=== PATIENT | female | born 1985 | race Hispanic/Latino ===

== ENCOUNTER 2018-05-08 02:46 | Emergency (ER) | payer OTHER ==
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
== END 2018-05-08 04:39 | disposition home or self-care (01) ==
LOC: ER 02:46
PROC: 0HQ1XZZ Repair Face Skin, External Approach (ICD-10-PCS; principal; 2018-05-08)
DX: S01.412A Laceration without foreign body of left cheek and temporomandibular area, initial encounter (principal); F17.210 Nicotine dependence, cigarettes, uncomplicated; W25.XXXA Contact with sharp glass, initial encounter; Y93.89 Activity, other specified; Y92.89 Other specified places as the place of occurrence of the external cause; Y99.8 Other external cause status
CPT/HCPCS: 99283

== ENCOUNTER 2019-02-07 06:26 | Emergency (ER) | payer SELFPAY ==
[2019-02-07 06:56] LABS: Absolute Monocytes 0.7 K/uL (0.1-1.3); Absolute Neutrophil 4.9 K/uL (1.8-8.0); Basophils % 0.4 % (0-1.3); Eosinophils % 1.1 % (0-4.4); Hematocrit 44.9 % (36.0-45.0); Lymphocytes % 26.4 % (15.3-44.8); MPV 8.2 fL (7.6-11.3); Monocytes % 8.5 % (3.3-12.3); RBC Red Blood Cell Count 4.73 M/uL (3.86-4.86)
[2019-02-07] MEDS ORDERED: MORPHINE 4 MG/ML SYR ONE (06:56)
[2019-02-07] MEDS ORDERED: ONDANSETRON 4 MG/2 ML VIAL ONE (06:56)
[2019-02-07 07:01] LABS: Protime INR 0.93
[2019-02-07 07:20] LABS: ALT/SGPT 19 U/L (12-78); AST/SGOT 13 U/L (15-37); Albumin 3.9 g/dL (3.4-5.0); Alkaline Phosphatase 77 U/L (45-117); BUN Blood Urea Nitrogen 10 mg/dL (7-18); Bicarbonate 27 mmol/L (21-32); Bilirubin Direct 0.1 mg/dL (0-0.2); Bilirubin Total 0.4 mg/dL (0.2-1.0); Glucose Level 100 mg/dL (74-106); Lipase 71 U/L (73-393); Magnesium 2.1 mg/dL (1.8-2.4); NT PRO-BNP 45 pg/mL (<125); Potassium 3.3 mmol/L (3.5-5.1); Protein, Total 8.2 g/dL (6.4-8.2); Sodium Level 141 mmol/L (136-145); Troponin (Emerg Dept Use Only) < 0.02 ng/mL (0.0-0.045)
[2019-02-07] MEDS ORDERED: MEPERIDINE HCL 25 MG/0.5 ML ONE (07:24)
--- NOTE | 2019-02-07 08:10 | EDPHYS ---
Physician Documentation [facility] Name: Erika Romero Age: 33 yrs Sex: Female : 1985 Arrival Date: 02/07/2019 Time: 06:30 Bed 5 Private MD: ED Physician Arthur Payne HPI: 02/07 07:05 This 33 yrs old Female presents to ER via Ambulatory with complaints of chest kb pain, SOB. 07:05 The patient or guardian reports chest pain that is located primarily in the anterior kb chest wall, right. The pain radiates to the right shoulder. Associated signs and symptoms: Pertinent positives: cough, nausea, shortness of breath, vomiting. The chest pain is described as a pressure. Duration: The patient or guardian reports a single episode. Modifying factors: The symptoms are alleviated by nothing. the symptoms are aggravated by nothing. Severity of pain: At its worst the pain was moderate in the emergency department the pain is unchanged. The patient has not experienced similar symptoms in the past. The patient has not recently seen a physician. Pt reports right sided chest pain and shortness of breath that started at 0100. Reports she has had a cough for 2 weeks as well. +nausea, vomited x2. 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 - Social history:: Smoking status: Patient uses tobacco products, 2 cigs a day, Patient uses alcohol, occasionally. - Ebola Screening: : Patient negative for fever greater than or equal to 101.5 degrees Fahrenheit, and additional compatible Ebola Virus Disease symptoms Patient denies exposure to infectious person Patient denies travel to an Ebola-affected area in the 21 days before illness onset. ROS: 07:04 Constitutional: Negative for fever, chills, and weight loss, ENT: Negative for injury, kb pain, and discharge, Neck: Negative for injury, pain, and swelling, Abdomen/GI: Negative for abdominal pain, nausea, vomiting, diarrhea, and constipation, Back: Negative for injury and pain, : Negative for injury, bleeding, discharge, and swelling, MS/Extremity: Negative for injury and deformity, Skin: Negative for injury, rash, and discoloration, Neuro: Negative for headache, weakness, numbness, tingling, and seizure. 07:04 Cardiovascular: Positive for chest pain, Negative for edema, orthopnea, palpitations, paroxysmal nocturnal dyspnea. 07:04 Respiratory: Positive for cough, shortness of breath, Negative for dyspnea on exertion, hemoptysis, orthopnea, pleurisy, sputum production, wheezing. Exam: 07:12 Constitutional: This is a well developed, well nourished patient who is awake, alert, kb and in no acute distress. Head/Face: Normocephalic, atraumatic. ENT: Nares patent. No nasal discharge, no septal abnormalities noted. Tympanic membranes are normal and external auditory canals are clear. Oropharynx with no redness, swelling, or masses, exudates, or evidence of obstruction, uvula midline. Mucous membranes moist. Neck: Trachea midline, no thyromegaly or masses palpated, and no cervical lymphadenopathy. Supple, full range of motion without nuchal rigidity, or vertebral point tenderness. No Meningismus. Chest/axilla: Normal chest wall appearance and motion. Nontender with no deformity. No lesions are appreciated. Cardiovascular: Regular rate and rhythm with a normal S1 and S2. No gallops, murmurs, or rubs. Normal PMI, no JVD. No pulse deficits. Respiratory: Lungs have equal breath sounds bilaterally, clear to auscultation and percussion. No rales, rhonchi or wheezes noted. No increased work of breathing, no retractions or nasal flaring. Skin: Warm, dry with normal turgor. Normal color with no rashes, no lesions, and no evidence of cellulitis. MS/ Extremity: Pulses equal, no cyanosis. Neurovascular intact. Full, normal range of motion. Neuro: Awake and alert, GCS 15, oriented to person, place, time, and situation. Cranial nerves II-XII grossly intact. Motor strength 5/5 in all extremities. Sensory grossly intact. Cerebellar exam normal. Normal gait. 07:12 Abdomen/GI: Inspection: abdomen appears normal, Bowel sounds: normal, Palpation: moderate abdominal tenderness, in the right upper quadrant. 09:00 ECG was reviewed by the Attending Physician. kb Vital Signs: 06:30 BP 146 / 87; Pulse 63; Resp 18; Temp 98.4(O); Pulse Ox 100% on R/A; Weight 68.04 kg fc (R); Height 4 ft. 11 in. (149.86 cm) (R); Pain 10/10; 07:39 BP 128 / 78; Pulse 59; Resp 16; Pulse Ox 98% on R/A; la1 08:10 BP 132 / 82; Pulse 79; Resp 18; Pulse Ox 100% ; sv 06:30 Body Mass Index 30.30 (68.04 kg, 149.86 cm) fc MDM: 06:35 Patient medically screened. kb 07:12 Data reviewed: vital signs, nurses notes. Data interpreted: Pulse oximetry: on room air kb is 100 %. Interpretation: normal. 08:05 Counseling: I had a detailed discussion with the patient and/or guardian regarding: the kb historical points, exam findings, and any diagnostic results supporting the discharge/admit diagnosis, lab results, radiology results, the need for outpatient follow up, a family practitioner, a general surgeon, to return to the emergency department if symptoms worsen or persist or if there are any questions or concerns that arise at home. 02/07 06:36 Order name: Basic Metabolic Panel; Complete Time: 07:23 kb 02/07 06:36 Order name: CBC with Diff; Complete Time: 07:03 kb 02/07 06:36 Order name: LFT's; Complete Time: 07:23 kb 02/07 06:36 Order name: Magnesium; Complete Time: 07:23 kb 02/07 06:36 Order name: NT PRO-BNP; Complete Time: 07:23 kb 02/07 06:36 Order name: PT-INR; Complete Time: 07:03 kb 02/07 06:36 Order name: Troponin (emerg Dept Use Only); Complete Time: 07:23 kb 02/07 06:36 Order name: XRAY Chest (1 view); Complete Time: 08:40 kb 02/07 06:36 Order name: D-Dimer; Complete Time: 07:03 kb 02/07 06:37 Order name: Lipase; Complete Time: 07:23 kb 02/07 06:40 Order name: US Abdomen Limited; Complete Time: 08:40 kb 02/07 08:28 Order name: Urine Dipstick--Ancillary (enter results); Complete Time: 08:58 hb 06 08:28 Order name: Urine --Ancillary (enter results); Complete Time: 08:58 hb 02/07 06:36 Order name: Cardiac monitoring; Complete Time: 06:45 kb 0406 06:36 Order name: EKG - Nurse/Tech; Complete Time: 06:46 kb 04 06:36 Order name: IV Saline Lock; Complete Time: 06:46 kb 04 06:36 Order name: Labs collected and sent; Complete Time: 06:46 kb 0406 06:36 Order name: O2 Per Protocol; Complete Time: 06:46 kb 04 06:36 Order name: O2 Sat Monitoring; Complete Time: 06:46 kb EC:00 Rate is 52 beats/min. Rhythm is regular. QRS Stanton is Normal. VT interval is normal at kb 120 msec. QRS interval is normal at 86 msec. QT interval is normal at 434 msec. Clinical impression: Sinus bradycardia. Interpreted by me. Reviewed by me. Administered Medications: 06:45 Drug: morphine 4 mg Route: IVP; Site: right antecubital; ea 07:03 Follow up: Response: No adverse reaction; Pain is decreased ea 06:50 Drug: Zofran 4 mg Route: IVP; Site: right antecubital; ea 07:03 Follow up: Response: No adverse reaction ea 07:17 Drug: Demerol 25 mg Route: IVP; Site: right antecubital; la1 08:10 Follow up: Response: No adverse reaction; No change in condition sv 08:10 Drug: Potassium Chloride 20 mEq Route: PO; sv 08:32 Follow up: Response: No adverse reaction sv 08:32 Drug: TORadol 30 mg Route: IVP; Site: right antecubital; sv 09:00 Follow up: Response: No adverse reaction; Pain is decreased la1 Disposition: 02/07/19 08:09 Discharged to Home. Impression: Cholelithiasis. - Condition is Stable. - Discharge Instructions: Cholelithiasis, [id number]. - Prescriptions for Bentyl 20 mg Oral Tablet - take 1 tablet by ORAL route every 6 hours As needed; 20 tablet. Zofran 4 mg Oral Tablet - take 1 tablet by ORAL route every 6 hours As needed; 20 tablet. Diclofenac Sodium 75 mg Oral Tablet, Delayed Release (E.C.) - take 1 tablet by ORAL route 2 times per day As needed; 30 tablet. - Medication Reconciliation Form, Thank You Letter, Antibiotic Education, Prescription Opioid Use form. - Work release form (02/07/19 09:04). eb - Follow up: Emergency Department; When: As needed; Reason: Worsening of condition. Follow up: Private Physician; When: 2 - 3 days; Reason: Recheck today's complaints, Continuance of care, Re-evaluation by your physician. Signatures: Dispatcher [employer]OK Daisy Godfrey, TRANSIT MANAGER-C TRANSIT MANAGER-Lauryn Nguyen, RN RN sv Latisha Eubanks RN RN Conrad Ferrer RN RN laSpring George RN Norma Larsen ea Corrections: (The following items were deleted from the chart) 09:03 08:09 02/07/2019 08:09 Discharged to Home. Impression: Cholelithiasis. Condition is la1 Stable. Discharge Instructions: Cholelithiasis, [id number]. Prescriptions for Bentyl 20 mg Oral Tablet - take 1 tablet by ORAL route every 6 hours As needed; 20 tablet, Zofran 4 mg Oral Tablet - take 1 tablet by ORAL route every 6 hours As needed; 20 tablet, Diclofenac Sodium 75 mg Oral Tablet, Delayed Release (E.C.) - take 1 tablet by ORAL route 2 times per day As needed; 30 tablet. and Forms are Medication Reconciliation Form, Thank You Letter, Antibiotic Education, Prescription Opioid Use. Follow up: Emergency Department; When: As needed; Reason: Worsening of condition. Follow up: Private Physician; When: 2 - 3 days; Reason: Recheck today's complaints, Continuance of care, Re-evaluation by your physician. kb
--- NOTE | 2019-02-07 08:10 | ER ---
Nurse's Notes [facility] Name: Erika Romero Age: 33 yrs Sex: Female : 1985 Arrival Date: 02/07/2019 Time: 06:30 Bed 5 Private MD: Diagnosis: Cholelithiasis Presentation: 02/07 06:30 Presenting complaint: Patient states: that she started to have pain under right breast fc at 0100 and has since spread to entire chest and right arm. Also having nausea, vomiting and shortness of breath. Transition of care: patient was not received from another setting of care. Onset of symptoms was February 07, 2019 at 01:00. Risk Assessment: Do you want to hurt yourself or someone else? Patient reports no desire to harm self or others. Initial Sepsis Screen: Does the patient meet any 2 criteria? No. Patient's initial sepsis screen is negative. Does the patient have a suspected source of infection? No. Patient's initial sepsis screen is negative. Care prior to arrival: Medication(s) given: TUMS at 0200. 06:30 Method Of Arrival: Ambulatory fc 06:30 Acuity: CESILIA 3 fc QUANTITATIVE ANALYST: 06:30 LMP N/A - control method fc Historical: - Allergies: 06:40 No Known Allergies; fc - Home Meds: 06:40 None [Active]; fc - PMHx: 06:40 None; fc - PSHx: 06:40 ; fc - Immunization history:: Last tetanus immunization: unknown, Flu vaccine is not up to date. - Social history:: Smoking status: Patient uses tobacco products, 2 cigs a day, Patient uses alcohol, occasionally. - Ebola Screening: : Patient negative for fever greater than or equal to 101.5 degrees Fahrenheit, and additional compatible Ebola Virus Disease symptoms Patient denies exposure to infectious person Patient denies travel to an Ebola-affected area in the 21 days before illness onset. Screenin:30 Abuse screen: Denies threats or abuse. Nutritional screening: No deficits noted. fc Tuberculosis screening: No symptoms or risk factors identified. Fall Risk None identified. Assessment: 06:45 General: Appears in no apparent distress. Behavior is calm, cooperative. Pain: la1 Complains of pain in epigastric area and right upper quadrant. Neuro: Level of Consciousness is awake, alert, obeys commands, Oriented to person, place, time, situation. Cardiovascular: Capillary refill < 3 seconds is brisk Patient's skin is warm and dry. Respiratory: Airway is patent Respiratory effort is even, unlabored, Respiratory pattern is regular, symmetrical, Breath sounds are clear bilaterally. GI: Abdomen is round non-distended, Bowel sounds present X 4 quads. Abd is soft X 4 quads Abdomen is tender to palpation in epigastric area and right upper quadrant. : No signs and/or symptoms were reported regarding the genitourinary system. 07:39 Reassessment: Patient appears in no apparent distress at this time. No changes from la1 previously documented assessment. Patient and/or family updated on plan of care and expected duration. Pain level reassessed. Patient is alert, oriented x 3, equal unlabored respirations, skin warm/dry/pink. 08:10 Reassessment: Patient appears in no apparent distress at this time. Patient and/or sv family updated on plan of care and expected duration. Pain level reassessed. Patient is alert, oriented x 3, equal unlabored respirations, skin warm/dry/pink. Vital Signs: 06:30 BP 146 / 87; Pulse 63; Resp 18; Temp 98.4(O); Pulse Ox 100% on R/A; Weight 68.04 kg fc (R); Height 4 ft. 11 in. (149.86 cm) (R); Pain 10/10; 07:39 BP 128 / 78; Pulse 59; Resp 16; Pulse Ox 98% on R/A; la1 08:10 BP 132 / 82; Pulse 79; Resp 18; Pulse Ox 100% ; sv 06:30 Body Mass Index 30.30 (68.04 kg, 149.86 cm) ED Course: 06:30 Patient arrived in ED. ea 06:30 Arm band placed on Patient placed in an exam room, on a stretcher. fc 06:30 Patient has correct armband on for positive identification. Placed in gown. Bed in low fc position. Call light in reach. laboratory monitor on. Pulse ox on. NIBP on. 06:30 No provider procedures requiring assistance completed. fc 06:35 [facility] kb 06:35 Arthur Payne MD is Attending Physician. kb 06:38 Triage completed. fc 06:45 Conrad Agarwal, RN is Primary Nurse. la1 06:45 Inserted saline lock: 20 gauge in left antecubital area, using aseptic technique. Blood la1 collected. 07:11 XRAY Chest (1 view) In Process Unspecified. EDMS 07:30 EKG done, by ED staff, reviewed by Daisy KELLOGG. dh3 07:47 Ultrasound completed. Patient tolerated well. sg3 08:03 Notified [employer]IN[employer] INSPECTOR/PA daisy. sg3 08:04 US Abdomen Limited In Process Unspecified. EDMS 08:59 IV discontinued, intact, bleeding controlled, No redness/swelling at site. Pressure la1 dressing applied. Administered Medications: 06:45 Drug: morphine 4 mg Route: IVP; Site: right antecubital; ea 07:03 Follow up: Response: No adverse reaction; Pain is decreased ea 06:50 Drug: Zofran 4 mg Route: IVP; Site: right antecubital; ea 07:03 Follow up: Response: No adverse reaction ea 07:17 Drug: Demerol 25 mg Route: IVP; Site: right antecubital; la1 08:10 Follow up: Response: No adverse reaction; No change in condition sv 08:10 Drug: Potassium Chloride 20 mEq Route: PO; sv 08:32 Follow up: Response: No adverse reaction sv 08:32 Drug: TORadol 30 mg Route: IVP; Site: right antecubital; sv 09:00 Follow up: Response: No adverse reaction; Pain is decreased la1 Outcome: 08:09 Discharge ordered by . kb 08:58 Discharged to home ambulatory. la1 08:58 Condition: stable 08:58 Discharge instructions given to patient, Instructed on discharge instructions, follow up and referral plans. medication usage, Demonstrated understanding of instructions, follow-up care, medications, Prescriptions given X 3. 09:03 Patient left the ED. la1 Signatures: Dispatcher [employer] EDMS Daisy Godfrey FNP-C FNP-Ckb Verde, Stephanie, RN RN sv Chretien, Felicia, RN RN fc Attema, Lee, RN RN la1 Cecilia Roach 3 Spring Aldridge RN RN ea Godinez, Sarah 3 Corrections: (The following items were deleted from the chart) 08:04 08:01 Ultrasound completed. Patient tolerated well. sg3 sg3
--- NOTE | 2019-02-07 08:12 | RAD REPORT ---
EXAM DESCRIPTION: US - Abdomen Exam Limited - 02/07/2019 8:03 am CLINICAL HISTORY: Abdominal pain COMPARISON: None. FINDINGS: Multiple mobile gallstones are identified up to 15 mm in size. At least 1 gallstone remain fixed near the neck of the gallbladder. There is no wall thickening or pericholecystic fluid. No common duct stone or biliary tree dilatation identified. IMPRESSION: Multi stone cholelithiasis. No gallbladder wall thickening or edema. No duct stone or biliary tree dilatation.
--- NOTE | 2019-02-07 08:15 | RAD REPORT ---
EXAM DESCRIPTION: RAD - Chest Single View - 02/07/2019 7:11 am CLINICAL HISTORY: Right-sided chest and breast pain, right arm pain, shortness of breath COMPARISON: None. TECHNIQUE: AP portable chest image was obtained 0707 hours . FINDINGS: Lungs are clear. Heart and vasculature are normal. No measurable pleural effusion and no p neumothorax. No acute bony abnormality seen. No acute aortic findings suspected. IMPRESSION: No acute cardiopulmonary process.
[2019-02-07] MEDS ORDERED: POTASSIUM CL SA 10 MEQ TAB PO ONE (08:21)
[2019-02-07] MEDS ORDERED: KETOROLAC 30 MG/ML INJ ONE (08:39)
[2019-02-07 08:58] LABS: Urine Blood NEGATIVE (NEG); Urine Glucose NEGATIVE (NEG); Urine Protein NEGATIVE (NEG); Urine pH 6.5 (5.0-7.0)
== END 2019-02-07 09:03 | disposition home or self-care (01) ==
LOC: ER 06:26
DX: K80.20 Calculus of gallbladder without cholecystitis without obstruction (principal); F17.210 Nicotine dependence, cigarettes, uncomplicated
CPT/HCPCS: 36415; 71045; 76705; 80048; 80076; 81003; 81025; 83690; 83735; 83880; 84484; 85025; 85379; 85610; 96374; 96375; 99284; J2175; J2405

== ENCOUNTER 2019-02-10 01:45 | Inpatient (IN) | payer SELFPAY ==
[2019-02-10 02:52] LABS: Absolute Lymphocytes (CBC) 2.7 K/uL (0.7-4.9); Absolute Monocytes 0.7 K/uL (0.1-1.3); Absolute Neutrophil 3.3 K/uL (1.8-8.0); Basophils % 0.6 % (0-1.3); Eosinophils % 1.6 % (0-4.4); Hematocrit 41.5 % (36.0-45.0); Lymphocytes % 38.9 % (15.3-44.8); MPV 8.2 fL (7.6-11.3); Monocytes % 10.1 % (3.3-12.3); RBC Red Blood Cell Count 4.34 M/uL (3.86-4.86)
[2019-02-10] MEDS ORDERED: FENTANYL CITR 100 MCG/2 ML ONE ×2 (03:03→12:13)
[2019-02-10 03:04] LABS: ALT/SGPT 16 U/L (12-78); AST/SGOT 10 U/L (15-37); Albumin 3.5 g/dL (3.4-5.0); Alkaline Phosphatase 73 U/L (45-117); BUN Blood Urea Nitrogen 10 mg/dL (7-18); Bicarbonate 27 mmol/L (21-32); Bilirubin Direct < 0.1 mg/dL (0-0.2); Bilirubin Total 0.2 mg/dL (0.2-1.0); Glucose Level 101 mg/dL (74-106); Lipase 73 U/L (73-393); Potassium 3.6 mmol/L (3.5-5.1); Protein, Total 7.2 g/dL (6.4-8.2); Sodium Level 141 mmol/L (136-145)
[2019-02-10] MEDS ORDERED: HYDROMORPHONE HCL 0.5 MG/0.5 ML INJ ONE (04:25)
[2019-02-10] MEDS ORDERED: ONDANSETRON 4 MG/2 ML VIAL ONE ×2 (04:35→13:40)
--- NOTE | 2019-02-10 04:36 | ER ---
Nurse's Notes [facility] Name: Erika Romero Age: 33 yrs Sex: Female : 1985 Arrival Date: 02/10/2019 Time: 01:46 Bed 28 Private MD: Diagnosis: Acute cholecystitis Presentation: 02/10 02:00 Presenting complaint: Patient states: epigastric pain stated at 2200. pt c/o N/V and ak1 burning pain. pt seen in ER last week but could not get medication filled at pharmacy until Saturday. pt stated she knows she has gallstones. Transition of care: patient was not received from another setting of care. Onset of symptoms was February 10, 2019. Risk Assessment: Do you want to hurt yourself or someone else? Patient reports no desire to harm self or others. Care prior to arrival: None. 02:00 Method Of Arrival: Ambulatory ak1 02:00 Acuity: CESILIA 3 ak1 Triage Assessment: 02:02 General: Appears in no apparent distress. uncomfortable, Behavior is cooperative. Pain: ak1 Complains of pain in epigastric area. EENT: No signs and/or symptoms were reported regarding the EENT system. Neuro: No deficits noted. Cardiovascular: No deficits noted. Respiratory: No deficits noted. GI: Parent/caregiver reports the patient having epigastric pain, nausea, vomiting. : No signs and/or symptoms were reported regarding the genitourinary system. Derm: No signs and/or symptoms reported regarding the dermatologic system. Musculoskeletal: No signs and/or symptoms reported regarding the musculoskeletal system. MANAGER PERSONNEL SELECTION: 01:[address] ak1 Historical: - Allergies: 02:02 No Known Allergies; ak1 - Home Meds: 02:02 None [Active]; ak1 - PMHx: 02:02 None; ak1 - PSHx: 02:02 ; ak1 - Immunization history:: Adult Immunizations unknown. - Social history:: Smoking status: Patient uses tobacco products, denies chronic smoking, but will smoke occasionally. - Ebola Screening: : No symptoms or risks identified at this time. Screenin:04 Abuse screen: Denies threats or abuse. Denies injuries from another. Nutritional ak1 screening: No deficits noted. Tuberculosis screening: No symptoms or risk factors identified. Fall Risk None identified. Assessment: 02:24 General: Appears uncomfortable, Behavior is calm, cooperative. Pain: Complains of pain ed1 in epigastric area Pain radiates to back Pain currently is 10 out of 10 on a pain scale. Quality of pain is described as sharp, Pain began 2-3 days ago. Is continuous. Neuro: Level of Consciousness is awake, alert, obeys commands, Oriented to person, place, time, situation. Cardiovascular: Denies chest pain, Heart tones S1 S2 present. Respiratory: Airway is patent Respiratory effort is even, unlabored, Respiratory pattern is regular, symmetrical, Breath sounds are clear bilaterally. GI: Abdomen is non-distended, Bowel sounds present X 4 quads. Abd is soft X 4 quads Abdomen is tender to palpation in epigastric area and right upper quadrant Reports nausea, Patient currently denies diarrhea, vomiting. : No signs and/or symptoms were reported regarding the genitourinary system. EENT: No signs and/or symptoms were reported regarding the EENT system. Derm: Skin is intact, is healthy with good turgor, Skin is dry, Skin is normal, Skin temperature is warm. Musculoskeletal: Circulation, motion, and sensation intact. Range of motion: intact in all extremities. 03:18 Reassessment: No changes from previously documented assessment. Patient and/or family ed1 updated on plan of care and expected duration. Pain level reassessed. Patient is alert, oriented x 3, equal unlabored respirations, skin warm/dry/pink. Patient states symptoms have not improved. 04:26 Reassessment: No changes from previously documented assessment. Patient and/or family ed1 updated on plan of care and expected duration. Pain level reassessed. Patient is alert, oriented x 3, equal unlabored respirations, skin warm/dry/pink. Patient states symptoms have not improved. Vital Signs: 01:59 BP 160 / 92; Pulse 66; Resp 20; Temp 98.2(O); Pulse Ox 99% on R/A; Weight 68.04 kg (R); ak1 Height 4 ft. 11 in. (149.86 cm) (R); Pain 10/10; 03:18 BP 132 / 76; Pulse 79; Resp 17; Pulse Ox 99% on R/A; Pain 10/10; ed1 04:26 BP 118 / 75; Pulse 70; Resp 18; Pulse Ox 99% on R/A; Pain 10/10; ed1 01:59 Body Mass Index 30.30 (68.04 kg, 149.86 cm) ak1 ED Course: 01:46 Patient arrived in ED. am2 01:53 Esperanza Jordan, RN is Primary Nurse. ed1 01:59 Arm band placed on Patient placed in an exam room, on a stretcher, on pulse oximetry, ak1 Patient notified of wait time. 02:00 Enrique Turner MD is Attending Physician. gs 02:02 Triage completed. ak1 02:04 Patient has correct armband on for positive identification. Placed in gown. Bed in low ak1 position. Call light in reach. Side rails up X 1. Pulse ox on. NIBP on. 02:24 Initial lab(s) drawn, by ED staff, sent to lab. Inserted saline lock: 20 gauge in left ed1 antecubital area, using aseptic technique. Blood collected. 04:32 Ezekiel Cao MD is Hospitalizing Provider. 06:57 Primary Nurse role handed off by Esperanza Jordan, FANI ed1 Administered Medications: 02:55 Drug: fentaNYL (PF) 50 mcg Route: IVP; Site: left antecubital; ed1 03:19 Follow up: Response: No adverse reaction; Pain is unchanged, physician notified ed1 04:17 Drug: Dilaudid 0.5 mg Route: IVP; Site: left antecubital; ed1 04:47 Follow up: Response: No adverse reaction; No change in condition; Pain is unchanged, ed1 physician notified 04:27 Drug: Zofran 4 mg Route: IVP; Site: left antecubital; ed1 04:48 Follow up: Response: No adverse reaction; Nausea is decreased ed1 04:47 Drug: NS 0.9% 1000 ml Route: IV; Rate: 125 ml/hr; Site: left antecubital; ed1 04:48 Follow up: IV Status: Infusion continued upon admission ed1 04:47 Drug: cefOXitin 1 grams Route: IVPB; Infused Over: 30 mins; Site: left antecubital; ed1 05:18 Follow up: Response: No adverse reaction; IV Status: Completed infusion; IV Intake: [id number] Intake: 05:18 IV: 10ml; Total: 10ml. ed1 Outcome: 04:36 Decision to Hospitalize by Provider. gs 12:13 Patient left the ED. aj1 Signatures: Prceious Redding RN RN aj1 Esperanza Jordan RN RN ed1 Rosio Sandoval RN RN ak1 Kelsi Perry am2 Enrique Turner MD MD gs
--- NOTE | 2019-02-10 04:36 | EDPHYS ---
Physician Documentation [facility] Name: Erika Romero Age: 33 yrs Sex: Female : 1985 Arrival Date: 02/10/2019 Time: 01:46 Bed 28 Private MD: ED Physician Enrique Turner HPI: 02/10 04:29 This 33 yrs old Female presents to ER via Ambulatory with complaints of Flank gs Pain - gallstones. 04:29 The patient presents with abdominal pain in the epigastric area, in the right upper gs quadrant. Onset: The symptoms/episode began/occurred 2 day(s) ago, and became worse and became persistent. The symptoms do not radiate. Associated signs and symptoms: Pertinent positives: nausea, vomiting, and diarrhea. The symptoms are described as sharp. Modifying factors: The symptoms are alleviated by nothing, the symptoms are aggravated by food. Severity of pain: At its worst the pain was severe in the emergency department the pain is unchanged. The patient has experienced similar episodes in the past, a few times. The patient has been recently seen at the [facility] Emergency Department, last week. QC SCIENTIST: 01:[address] ak1 Historical: - Allergies: 02:02 No Known Allergies; ak1 - Home Meds: 02:02 None [Active]; ak1 - PMHx: 02:02 None; ak1 - PSHx: 02:02 ; ak1 - Immunization history:: Adult Immunizations unknown. - Social history:: Smoking status: Patient uses tobacco products, denies chronic smoking, but will smoke occasionally. - Ebola Screening: : No symptoms or risks identified at this time. ROS: 04:29 All other systems are negative. gs Exam: 04:29 Head/Face: Normocephalic, atraumatic. Eyes: Pupils equal round and reactive to light, gs extra-ocular motions intact. Lids and lashes normal. Conjunctiva and sclera are non-icteric and not injected. Cornea within normal limits. Periorbital areas with no swelling, redness, or edema. ENT: Nares patent. No nasal discharge, no septal abnormalities noted. Tympanic membranes are normal and external auditory canals are clear. Oropharynx with no redness, swelling, or masses, exudates, or evidence of obstruction, uvula midline. Mucous membranes moist. Neck: Trachea midline, no thyromegaly or masses palpated, and no cervical lymphadenopathy. Supple, full range of motion without nuchal rigidity, or vertebral point tenderness. No Meningismus. Chest/axilla: Normal chest wall appearance and motion. Nontender with no deformity. No lesions are appreciated. Cardiovascular: Regular rate and rhythm with a normal S1 and S2. No gallops, murmurs, or rubs. Normal PMI, no JVD. No pulse deficits. Respiratory: Lungs have equal breath sounds bilaterally, clear to auscultation and percussion. No rales, rhonchi or wheezes noted. No increased work of breathing, no retractions or nasal flaring. Back: No spinal tenderness. No costovertebral tenderness. Full range of motion. Skin: Warm, dry with normal turgor. Normal color with no rashes, no lesions, and no evidence of cellulitis. MS/ Extremity: Pulses equal, no cyanosis. Neurovascular intact. Full, normal range of motion. Neuro: Awake and alert, GCS 15, oriented to person, place, time, and situation. Cranial nerves II-XII grossly intact. Motor strength 5/5 in all extremities. Sensory grossly intact. Cerebellar exam normal. Normal gait. 04:29 Constitutional: The patient appears alert, awake, uncomfortable. 04:29 Abdomen/GI: Palpation: moderate abdominal tenderness, in the epigastric area and right upper quadrant. Vital Signs: 01:59 BP 160 / 92; Pulse 66; Resp 20; Temp 98.2(O); Pulse Ox 99% on R/A; Weight 68.04 kg (R); ak1 Height 4 ft. 11 in. (149.86 cm) (R); Pain 10/10; 03:18 BP 132 / 76; Pulse 79; Resp 17; Pulse Ox 99% on R/A; Pain 10/10; ed1 04:26 BP 118 / 75; Pulse 70; Resp 18; Pulse Ox 99% on R/A; Pain 10/10; ed1 01:59 Body Mass Index 30.30 (68.04 kg, 149.86 cm) ak1 MDM: 02:32 Patient medically screened. gs 04:29 Differential diagnosis: cholecystitis, Cholelithiasis, pancreatitis, Peptic Ulcer gs Disease. Data reviewed: vital signs, nurses notes, old medical records, lab test result(s), radiologic studies. Response to treatment: the patient's symptoms have mildly improved after treatment. Physician consultation: Ezekiel Cao MD and will see patient in inpatient room. 02/10 02:11 Order name: Basic Metabolic Panel; Complete Time: 03:17 gs 02/10 02:11 Order name: CBC with Diff; Complete Time: 03:17 gs 02/10 02:11 Order name: Hepatic Function; Complete Time: 03:17 gs 02/10 02:11 Order name: Lipase; Complete Time: 03:17 gs 02/10 12:00 Order name: Urine --Ancillary (enter results) iw 02/10 12:02 Order name: Urine Dipstick--Ancillary (enter results) iw 02/10 02:11 Order name: IV Saline Lock; Complete Time: 02:24 gs 02/10 02:11 Order name: Labs collected and sent; Complete Time: 02:24 gs 02/10 04:54 Order name: NPO EDID 02/10 04:38 Order name: NPO; Complete Time: 04:40 gs Administered Medications: 02:55 Drug: fentaNYL (PF) 50 mcg Route: IVP; Site: left antecubital; ed1 03:19 Follow up: Response: No adverse reaction; Pain is unchanged, physician notified ed1 04:17 Drug: Dilaudid 0.5 mg Route: IVP; Site: left antecubital; ed1 04:47 Follow up: Response: No adverse reaction; No change in condition; Pain is unchanged, ed1 physician notified 04:27 Drug: Zofran 4 mg Route: IVP; Site: left antecubital; ed1 04:48 Follow up: Response: No adverse reaction; Nausea is decreased ed1 04:47 Drug: NS 0.9% 1000 ml Route: IV; Rate: 125 ml/hr; Site: left antecubital; ed1 04:48 Follow up: IV Status: Infusion continued upon admission ed1 04:47 Drug: cefOXitin 1 grams Route: IVPB; Infused Over: 30 mins; Site: left antecubital; ed1 05:18 Follow up: Response: No adverse reaction; IV Status: Completed infusion; IV Intake: [id number] Disposition: 02/10/19 04:36 Hospitalization ordered by Ezekiel Cao for Inpatient Admission. Preliminary diagnosis is Acute cholecystitis. - Bed requested for [facility] ER HOLD. - Status is Inpatient Admission. aj1 - Condition is Stable. - Problem is new. - Symptoms have improved. UTI on Admission? No Signatures: Dispatcher [employer] EDMS Precious Redding, RN RN aj1 Esperanza Jordan, RN RN ed1 Rosio Sandoval RN RN ak1 Enrique Turner MD MD Corrections: (The following items were deleted from the chart) 05:55 04:36 Hospitalization Ordered by Ezekiel Cao MD for Inpatient Admission. Preliminary ed1 diagnosis is Acute cholecystitis. Bed requested for Telemetry/MedSurg (Inpatient). Status is Inpatient Admission. Condition is Stable. Problem is new. Symptoms have improved. UTI on Admission? No. 12:13 05:55 02/10/2019 04:36 Hospitalization Ordered by Ezekiel Cao MD for Inpatient aj1 Admission. Preliminary diagnosis is Acute cholecystitis. Bed requested for [facility] ER HOLD. Status is Inpatient Admission. Condition is Stable. Problem is new. Symptoms have improved. UTI on Admission? No. ed1
[2019-02-10] MEDS ORDERED: MORPHINE 4 MG/ML SYR IV PRN ×2 (04:48→21:59)
[2019-02-10] MEDS ORDERED: ACETAMINOPHEN 500 MG TAB PO PRN ×2 (04:48→22:03)
[2019-02-10] MEDS ORDERED: ONDANSETRON 4 MG/2 ML VIAL IV PRN ×2 (04:48→22:14)
[2019-02-10] MEDS ORDERED: NA CHLORIDE 0.9% 1,000 ML ONE (04:55)
[2019-02-10] MEDS ORDERED: CEFOXITIN/SWI 1gm 1 GM/10 ML SYR ONE (04:55)
[2019-02-10] MEDS: D5 0.45 NS 1,000 ML IV SCH ×4 (05:00→15:08)
[2019-02-10] MEDS ORDERED: CEFOXITIN SODIUM 1 GM/VIAL IVPB SCH ×2 (06:00→11:00)
[2019-02-10] MEDS ORDERED: D5 0.45 NS 1,000 ML IV ONE (06:18)
[2019-02-10] MEDS ORDERED: LIDOCAINE 1% MPF 5 ML VIAL ONE (12:13)
[2019-02-10] MEDS ORDERED: MIDAZOLAM HCL 2 MG/2 ML INJ ONE (12:13)
[2019-02-10] MEDS ORDERED: ROCURONIUM 50 MG/5 ML VIAL IV ONE (12:13)
[2019-02-10] MEDS ORDERED: PROPOFOL 200 MG/20 ML VIAL IV ONE (12:13)
[2019-02-10] MEDS ORDERED: SUCCINYLCHOLINE 20 MG/ML (10 ML) IV ONE (12:20)
[2019-02-10 12:23] LABS: Urine Blood NEGATIVE (NEG); Urine Glucose NEGATIVE (NEG); Urine Protein NEGATIVE (NEG); Urine pH 6.5 (5.0-7.0)
[2019-02-10] MEDS ORDERED: BUPIVACAINE 0.5% PF 10 ML VIAL ONE (12:42)
[2019-02-10] MEDS ORDERED: Ringers Lactate 1,000 ML IV ONE (12:42)
[2019-02-10] MEDS: CEFOXITIN/SWI 1gm 1 GM/10 ML SYR IV SCH ×2 (12:45→17:36)
--- NOTE | 2019-02-10 13:31 | P.BOP ---
Preoperative diagnosis: acute cholecystitis, symptomatic cholelithiasis Postoperative diagnosis: same Primary procedure: Laparoscopic cholecystectomy Vine Pruner: Shu Sears (Eduardo) Estimated blood loss: <10cc Specimen: gb Findings: inflammed distended GB Anesthesia: General Complications: None Transferred to: Recovery Room Condition: Good
[2019-02-10] MEDS ORDERED: GLYCOPYRROLATE 0.2 MG/ML SYR ONE ×2 (13:36)
[2019-02-10] MEDS ORDERED: KETOROLAC 30 MG/ML INJ ONE (13:36)
[2019-02-10] MEDS ORDERED: NEOSTIGMINE 1 MG/ML -10 ML VIAL ONE (13:40)
[2019-02-10] MEDS ORDERED: Mastisol Adhesive Liq ONE (13:41)
[2019-02-10] MEDS: HYDROMORPHONE HCL 1 MG/ML INJ ONE ×2 (14:09→14:14)
[2019-02-10] MEDS ORDERED: PROMETHAZINE 25 MG/ML VIAL ONE (14:20)
[2019-02-10] MEDS: HYDROCODONE/APAP 7.5/325 MG TAB PO PRN ×2 (15:05→18:55)
--- NOTE | 2019-02-10 23:13 | HP ---
Date of Admission: 02/10/2019 History Of Present Illness: This is the case of a 33-year-old patient, who comes in this morning to the ER complaining of intractable epigastric right upper quadrant pain radiating to the back, associa valerie with nausea and vomiting. She was in the ER apparently about 2-3 days ago with the same complain t. She improved, was sent home apparently, but then after that, symptoms continued. I was called fo r admission after she has this intractable abdominal pain for cholecystectomy. 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 Allergies: NONE. Medical Problems: None. Medications: None. Social History: She does smoke. She does not drink alcohol. Review of Systems: Ten points, otherwise, unremarkable. The patient denies any dysuria, hematuria, hematochezia, or sukhjinder sam. Denies any recent traveling out of the country. Denies any family member sick at home. Physical Examination: General: The patient is awake and alert. HEENT: Pupils are equal and reactive, anicteric. Neck: Supple. Chest: Clear. Breasts: Deferred. Abdomen: Epigastric right upper quadrant pain with Isaac sign positive. Extremities: Good capillary refill. Rectal: Deferred. Pelvic: Deferred. Neuro: Cranial nerves 2 through 12 grossly within normal limits. Laboratory Data: WBC count is 6.9 with hemoglobin of 13.9, platelets of 307. A total bilirubin of 0 .2, alkaline phosphate 73. Chloride is 108. Creatinine is 0.76. UA; nitrate negative. t est pending. Ultrasound was done in the previous evaluation in ER on 02/07/2019; at that moment, woody ws multi-stone cholelithiasis with a stone fixed in the neck of the gallbladder. Assessment: This is the case of a 33-year-old patient with acute cholecystitis, symptomatic cholelit hiasis, intractable abdominal pain with stone impacted in the neck of the gallbladder. The benefits, alternatives, and risks of laparoscopic, possible open cholecystectomy were fully explained to the p atient, which include but are not limited to infection, bleeding, damage to adjacent structures, anes thesia complication, choledocholithiasis, bile leak, pancreatitis, KS, and even . She also unde rstood this may not relieve the symptoms, she might need more than one surgical intervention. She wa nts surgery to be done today if possible. So, the patient was booked in OR. JOÃO/CHRISTAL Voice ID: [id number]
[2019-02-11] MEDS: D5 0.45 NS 1,000 ML IV SCH ×2 (00:11→08:09)
[2019-02-11] MEDS: CEFOXITIN/SWI 1gm 1 GM/10 ML SYR IV SCH ×5 (00:12→12:21)
--- NOTE | 2019-02-11 01:07 | OP ---
Date of Procedure: 02/10/2019 Surgeon: Ezekiel Cao MD Ambulatory Care: Doreen Gonzalez Preoperative Diagnoses: Acute cholecystitis, symptomatic cholelithiasis. Postoperative Diagnoses: Acute cholecystitis, symptomatic cholelithiasis. Procedure: Laparoscopic cholecystectomy. Estimated Blood Loss: Less than 10 cc. Specimen: Gallbladder. Anesthesia: General plus local. Indications: This is the case of a 33-year-old patient, comes to us with above diagnosis, intractabl e right upper quadrant pain with Isaac sign positive with acute cholecystitis. Fully explained the benefits, alternatives, and risks of laparoscopic, possible open cholecystectomy, which include but a re not limited to infection, bleeding, damage to adjacent structures, anesthesia complication, choled ocholithiasis, bile leak, pancreatitis, IL, and even . She also understands this may not reliev e any symptoms, she might need more than one surgical intervention. She understood, signed a consent . Description Of Procedure: The patient was brought to the operating room, placed in supine position. Anesthesia was done without complication. Abdominal area was prepped and draped in usual sterile fa shion. Marcaine 0.5% was injected for local anesthetic, followed by sharp incision of skin in the in fraumbilical region. Incision was carried down to fascia, which was opened under direct vision. Per itoneum was encountered, opened under direct vision. Vicryl #1 was placed inside the fascia. Felipe trocar was carefully introduced. Pneumoperitoneum was obtained. I placed 3 more trocars, 5 mm each one of them, 1 in the epigastric area, 2 in the right upper quadrant using same technique, which con sisted of local anesthetic, sharp incision of the skin, and introduction of the trocars under direct vision. This allowed me to put a grasper in the fundus of the gallbladder, but it was so distended t hat we put an Endo needle in that area under direct visualization and aspirated content. The needle was removed under direct visualization. A grasper was placed in the fundus of the gallbladder, anoth er grasper in the infundibulum, retracted the gallbladder in the inferolateral fashion exposing the t riangle of Calot, obtaining critical view of safety. The cystic duct and cystic artery were clearly isolated free circumferentially and a connection between those and the gallbladder were clearly ident ified. I proceeded to ligate those with 3 clips proximal, 1 clip distal, ligation in the middle. Sa me was done with the cystic artery. There was a tiny little branch near the gallbladder and the cyst ic artery, that was also ligated using the same technique. The hepatic arteries and common bile duct were identified and protected away from the surgical site. Gallbladder was removed from liver using Bovie cauterizer and removed from abdominal cavity using EndoCatch through the umbilical incision. The area was inspected once again. No bile leak. No bleeding. Clips were intact. Gallbladder anna a with no bleeding. At that moment, I proceeded to remove the trocars under direct vision, deflated the pneumoperitoneum, closed the fascia with #1 Vicryl, irrigated subcutaneous tissue, closed that wi th 3-0 chromic and skin in a subcuticular fashion with 3-0 chromic and Steri-Strips on top. Sponge c ount and instrument counts were correct. The patient tolerated the procedure well. The patient was sent to recovery in stable condition. JOÃO/CHRISTAL Voice ID: [id number] Report ID: [id number]
[2019-02-11] MEDS: HYDROCODONE/APAP 7.5/325 MG TAB PO PRN ×3 (03:15→12:21)
[2019-02-11 06:43] LABS: Absolute Lymphocytes (CBC) 2.4 K/uL (0.7-4.9); Absolute Monocytes 0.6 K/uL (0.1-1.3); Absolute Neutrophil 4.6 K/uL (1.8-8.0); Basophils % 0.3 % (0-1.3); Eosinophils % 0.7 % (0-4.4); Hematocrit 37.4 % (36.0-45.0); Lymphocytes % 31.3 % (15.3-44.8); MPV 8.1 fL (7.6-11.3); Monocytes % 7.4 % (3.3-12.3); RBC Red Blood Cell Count 3.87 M/uL (3.86-4.86)
[2019-02-11 07:07] LABS: Albumin 2.8 g/dL (3.4-5.0); Bilirubin Direct 0.2 mg/dL (0-0.2); Bilirubin Total 0.7 mg/dL (0.2-1.0); Potassium 3.6 mmol/L (3.5-5.1); Protein, Total 5.9 g/dL (6.4-8.2)
--- NOTE | 2019-02-11 09:29 | P.DS ---
Admission Date: 02/10/19 Discharge Date: 02/11/19 Disposition: ROUTINE DISCHARGE Discharge Condition: GOOD Vital Signs/Physical Exam: Temp Pulse Resp BP Pulse Ox 97.7 F 66 18 96/52 L 96 02/11/19 04:00 02/11/19 04:00 02/11/19 04:00 02/11/19 04:00 02/11/19 04:00 General: Alert, Oriented x3, Cooperative HEENT: PERRLA, Sclerae nonicteric Neck: Supple Respiratory: Normal air movement Cardiovascular: No edema, Normal pulses Gastrointestinal: Soft and benign Musculoskeletal: No erythema, No tenderness, No warmth Integumentary: No rashes, No erythema, No warmth, No cyanosis Neurological: Normal speech Laboratory Data at Discharge: WBC 7.7 K/uL (4.3-10.9) 02/11/19 06:15 Hgb 12.6 g/dL (12.0-15.0) 02/11/19 06:15 Hct 37.4 % (36.0-45.0) 02/11/19 06:15 Plt Count 277 K/uL (152-406) 02/11/19 06:15 Sodium 141 mmol/L (136-145) 02/11/19 06:15 Potassium 3.6 mmol/L (3.5-5.1) 02/11/19 06:15 BUN 3 mg/dL (7-18) L 02/11/19 06:15 Creatinine 0.82 mg/dL (0.55-1.3) 02/11/19 06:15 Glucose 91 mg/dL (74-106) 02/11/19 06:15 Total Bilirubin 0.7 mg/dL (0.2-1.0) 02/11/19 06:15 AST 23 U/L (15-37) 02/11/19 06:15 ALT 27 U/L (12-78) 02/11/19 06:15 Alkaline Phosphatase 50 U/L (45-117) 02/11/19 06:15 Lipase 47 U/L (73-393) L 02/11/19 06:15 Home Medications: Codeine/APAP [Tylenol W/Codeine #3 tab] 1 tab PO Q4HP PRN #30 tab 02/11/19 Ondansetron HCl [Zofran] 4 mg PO Q6H PRN #10 tablet 02/11/19 Sulfamethoxazole/Trimethoprim [Bactrim Ds Tablet] 1 each PO BID #10 tablet 02/11 New Medications: Codeine/APAP [Tylenol W/Codeine #3 tab] 1 tab PO Q4HP PRN #30 tab PRN Reason: Pain Ondansetron HCl [Zofran] 4 mg PO Q6H PRN #10 tablet PRN Reason: Nausea / Vomiting Sulfamethoxazole/Trimethoprim [Bactrim Ds Tablet] 1 each PO BID #10 tablet Patient Discharge Instructions: KEep area dry for 24h then remove dressing and shower. Keep sterile strips intact. Diet: AHA Activity: No lifting more than 10 lbs Followup: Ezekiel Cao MD [ACTIVE - CAN ADMIT] - 1 Week
== END 2019-02-11 14:00 | disposition home or self-care (01) | DRG 419 ==
LOC: ER 01:45 → ERHOLD 04:47 → UNDOADMIN 04:47 → DS 12:06 → 2ND 14:30
PROVIDERS: ADMIT Surgery; ATTEND Surgery
PROC: 0FT44ZZ Resection of Gallbladder, Percutaneous Endoscopic Approach (ICD-10-PCS; principal; 2019-02-10 13:30)
DX: K80.00 Calculus of gallbladder with acute cholecystitis without obstruction (principal)
CPT/HCPCS: 36415; 80048; 80076; 81003; 81025; 83690; 85025; 88304; 96365; 96375; 99284; J0330; J0694; J1170; J2250; J2405; J2550; J2704; J2710; J3010; J7030

== ENCOUNTER 2019-12-11 02:20 | Emergency (ER) | payer SELFPAY ==
[2019-12-11] MEDS ORDERED: LORazepam 2 MG/ML VIAL ONE (02:42)
[2019-12-11] MEDS ORDERED: NA CHLORIDE 0.9% 1,000 ML ONE (02:42)
[2019-12-11 02:43] LABS: Absolute Lymphocytes (CBC) 3.4 K/uL (0.7-4.9); Basophils % 0.4 % (0-1.3); Hematocrit 45.8 % (36.0-45.0); Lymphocytes % 34.5 % (15.3-44.8); MPV 7.9 fL (7.6-11.3); RBC Red Blood Cell Count 4.76 M/uL (3.86-4.86)
[2019-12-11 02:46] LABS: Protime INR 0.96
[2019-12-11 02:49] LABS: Arterial Blood Carboxyhemoglob 4.6 % (0-1.5); Blood Gas Oxyhemoglobin 89.5 % (94-97); Blood O2 Saturation 94.5 % (92-98.5)
[2019-12-11 02:50] LABS: Urine Blood 2+ (NEG); Urine Glucose NEGATIVE (NEG); Urine Protein NEGATIVE (NEG); Urine Specific Gravity 1.015 (1.005-1.030)
[2019-12-11] MEDS ORDERED: ONDANSETRON 4 MG/2 ML VIAL ONE (02:50)
[2019-12-11] MEDS ORDERED: CEFTRIAXONE/SWI 1gm 1 GM/10 ML SYR ONE (03:05)
[2019-12-11 03:08] LABS: ALT/SGPT 22 U/L (12-78); AST/SGOT 20 U/L (15-37); Albumin 4.2 g/dL (3.4-5.0); Alkaline Phosphatase 80 U/L (45-117); BUN Blood Urea Nitrogen 5 mg/dL (7-18); Bicarbonate 24 mmol/L (21-32); Bilirubin Direct 0.1 mg/dL (0-0.2); Bilirubin Total 0.3 mg/dL (0.2-1.0); Glucose Level 103 mg/dL (74-106); Potassium 3.3 mmol/L (3.5-5.1); Protein, Total 8.4 g/dL (6.4-8.2); Sodium Level 142 mmol/L (136-145)
[2019-12-11 03:09] LABS: Barbiturates NEGATIVE (NEGATIVE); Benzodiazepines NEGATIVE (NEGATIVE); Cocaine POSITIVE (NEGATIVE); METHAMPHETAM NEGATIVE (NEGATIVE); Methadone NEGATIVE (NEGATIVE); Opiates NEGATIVE (NEGATIVE); Phencyclidine NEGATIVE (NEGATIVE); THC Cannibis POSITIVE (NEGATIVE)
--- NOTE | 2019-12-11 03:52 | EDPHYS ---
Physician Documentation [facility] Name: Erika Romero Age: 34 yrs Sex: Female : 1985 Arrival Date: 12/11/2019 Time: 02:21 Bed 2 Private MD: ED Physician Imer Turner HPI: 12/11 02:26 This 34 yrs old Female presents to ER via Unassigned with complaints of chery Breathing Difficulty. 02:26 The patient has shortness of breath with light activity. Onset: The symptoms/episode chery began/occurred just prior to arrival. Duration: The symptoms are continuous, and are steadily getting worse. The patient's shortness of breath is aggravated by coughing. Associated signs and symptoms: The patient has no apparent associated signs or symptoms. Severity of symptoms: At their worst the symptoms were mild moderate in the emergency department the symptoms are unchanged. The patient has not experienced similar symptoms in the past. 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 - Coronavirus screen:: The patient has NOT traveled to [place], [place], or [place] in the past 14 days. Proceed with normal triage process as indicated. - Family history:: not pertinent. - Social history:: Smoking status: Reported history of juuling and/or vaping. unknown. - Ebola Screening: : No symptoms or risks identified at this time. ROS: 02:27 Constitutional: Negative for fever, chills, and weight loss, Eyes: Negative for injury, chery pain, redness, and discharge, ENT: Negative for injury, pain, and discharge, Neck: Negative for injury, pain, and swelling, Cardiovascular: Negative for chest pain, palpitations, and edema, Abdomen/GI: Negative for abdominal pain, nausea, vomiting, diarrhea, and constipation, Back: Negative for injury and pain, MS/Extremity: Negative for injury and deformity, Skin: Negative for injury, rash, and discoloration, Neuro: Negative for headache, weakness, numbness, tingling, and seizure, Psych: Negative for depression, anxiety, suicide ideation, homicidal ideation, and hallucinations, Allergy/Immunology: Negative for hives, rash, and allergies, Endocrine: Negative for neck swelling, polydipsia, polyuria, polyphagia, and marked weight changes, Hematologic/Lymphatic: Negative for swollen nodes, abnormal bleeding, and unusual bruising. 02:27 Respiratory: Positive for shortness of breath. 02:27 : Positive for vaginal bleeding. Exam: 02:27 Constitutional: This is a well developed, well nourished patient who is awake, alert, chery and in no acute distress. Head/Face: Normocephalic, atraumatic. Eyes: Pupils equal round and reactive to light, extra-ocular motions intact. Lids and lashes normal. Conjunctiva and sclera are non-icteric and not injected. Cornea within normal limits. Periorbital areas with no swelling, redness, or edema. ENT: Nares patent. No nasal discharge, no septal abnormalities noted. Tympanic membranes are normal and external auditory canals are clear. Oropharynx with no redness, swelling, or masses, exudates, or evidence of obstruction, uvula midline. Mucous membranes moist. Neck: Trachea midline, no thyromegaly or masses palpated, and no cervical lymphadenopathy. Supple, full range of motion without nuchal rigidity, or vertebral point tenderness. No Meningismus. Chest/axilla: Normal chest wall appearance and motion. Nontender with no deformity. No lesions are appreciated. Cardiovascular: Regular rate and rhythm with a normal S1 and S2. No gallops, murmurs, or rubs. Normal PMI, no JVD. No pulse deficits. Abdomen/GI: Soft, non-tender, with normal bowel sounds. No distension or tympany. No guarding or rebound. No evidence of tenderness throughout. Back: No spinal tenderness. No costovertebral tenderness. Full range of motion. Skin: Warm, dry with normal turgor. Normal color with no rashes, no lesions, and no evidence of cellulitis. MS/ Extremity: Pulses equal, no cyanosis. Neurovascular intact. Full, normal range of motion. Psych: Awake, alert, with orientation to person, place and time. Behavior, mood, and affect are within normal limits. 02:27 Respiratory: mild respiratory distress is noted, Respirations: labored breathing, that is mild, that is moderate, Breath sounds: are clear throughout, Respiratory rate: 30 Vital Signs: 02:32 BP 145 / 93; Pulse 138; Resp 22 S; Pulse Ox 98% on R/A; Weight 65.77 kg (R); Height 4 bb ft. 11 in. (149.86 cm) (R); Pain 10/10; 02:55 Temp 98.5(O); lp1 03:20 BP 141 / 85; Pulse 125; Resp 20; Pulse Ox 99% ; rr5 04:11 BP 132 / 76; Pulse 116; Resp 19; Pulse Ox 99% on R/A; rr5 04:58 BP 125 / 70; Pulse 105; Resp 17; Temp 98.6; Pulse Ox 99% ; rr5 02:32 Body Mass Index 29.29 (65.77 kg, 149.86 cm) bb MDM: 02:24 Patient medically screened. [facility] 02:28 Data reviewed: radiologic studies, plain films. Data reviewed: lab test result(s), EKG. [facility] 12/11 02:25 Order name: Acetaminophen [facility] 12/11 02:25 Order name: Basic Metabolic Panel [facility] 12/11 02:25 Order name: CBC with Diff [facility] 12/11 02:25 Order name: ETOH Level [facility] 12/11 02:25 Order name: Hepatic Function [facility] 12/11 02:25 Order name: PT-INR [facility] 12/11 02:25 Order name: Ptt, Activated [facility] 12/11 02:25 Order name: Salicylate [facility] 12/11 02:25 Order name: Urine Drug Screen [facility] 12/11 02:25 Order name: ABG [facility] 12/11 02:45 Order name: Urine Dipstick--Ancillary (enter results) [facility] 12/11 02:45 Order name: Urine --Ancillary (enter results) [facility] 12/11 02:48 Order name: CBC with Automated Diff; Complete Time: 02:48 EDMS 12/11 02:48 Order name: Protime (+INR); Complete Time: 02:48 EDMS 12/11 02:25 Order name: Chest Single View XRAY [facility] 12/11 02:48 Order name: PTT, Activated Partial Thromb; Complete Time: 02:48 EDMS 12/11 02:50 Order name: Urine --Ancillary; Complete Time: 03:48 EDMS 12/11 02:50 Order name: Urine Dipstick-Ancillary; Complete Time: 03:48 EDMS 12/11 02:53 Order name: Urine Culture [facility] 12/11 02:53 Order name: CT Stone Protocol [facility] 12/11 02:53 Order name: CT Chest For PE Angio [facility] 12/11 02:57 Order name: ABG Arterial Blood Gas; Complete Time: 03:48 EDMS 12/11 03:09 Order name: Salicylates Level; Complete Time: 03:48 EDMS 12/11 03:09 Order name: Basic Metabolic Panel; Complete Time: 03:48 EDMS 12/11 03:10 Order name: Liver (Hepatic) Function; Complete Time: 03:48 EDMS 02 03:10 Order name: Acetaminophen Level; Complete Time: 03:48 EDMS 12/11 03:10 Order name: Alcohol Serum/Plasma; Complete Time: 03:48 EDMS 12/11 03:10 Order name: Urine Drug Screen; Complete Time: 03:48 EDMS 12/11 02:25 Order name: Urine Test (obtain specimen); Complete Time: 02:55 [facility] 12/11 02:25 Order name: EKG; Complete Time: 02:29 [facility] 12/11 02:25 Order name: EKG - Nurse/Tech; Complete Time: 02:54 [facility] 12/11 02:25 Order name: IV Saline Lock; Complete Time: 02:54 [facility] 12/11 02:25 Order name: Labs collected and sent; Complete Time: 02:54 [facility] 12/11 02:25 Order name: Urine Dipstick-Ancillary (obtain specimen); Complete Time: 02:54 [facility] Administered Medications: 02:45 Drug: NS 0.9% 1000 ml Route: IV; Rate: 1 bolus; Site: right antecubital; lp1 04:00 Follow up: Response: No adverse reaction; IV Status: Completed infusion; IV Intake: rr5 1000ml 02:45 Drug: Ativan 1 mg Route: IVP; Site: right antecubital; lp1 03:45 Follow up: Response: No adverse reaction; Anxiety decreased rr5 02:48 Drug: Zofran 4 mg Route: IVP; Site: right antecubital; lp1 03:50 Follow up: Response: No adverse reaction rr5 03:05 Drug: Rocephin 1 grams Route: IV; Rate: per protocol; Site: right antecubital; rv 04:00 Follow up: Response: No adverse reaction; IV Status: Completed infusion; IV Intake: [id number] 04:05 Drug: Potassium Effervescent Tablet 50 mEq Route: PO; rr5 04:59 Follow up: Response: No adverse reaction rr5 Disposition: 12/11/19 03:52 Discharged to Home. Impression: Dyspnea, Anxiety disorder, unspecified, Abuse of non-psychoactive substances, Alcohol abuse with intoxication, Urinary tract infection, site not specified, Cocaine abuse, Hypokalemia. - Condition is Stable. - Discharge Instructions: Alcohol Intoxication, Panic Attacks, Stimulant Use Disorder-Cocaine, Potassium Content of Foods, Substance Use Disorder, Shortness of Breath, Urinary Tract Infection, Adult, Shortness of Breath, [id number], Urinary Tract Infection, Adult, Jovm-bd-Qawy, Alcohol Abuse and Nutrition, Panic Attacks, [id number]. - Prescriptions for Benadryl 25 mg Oral Capsule - take 1 capsule by ORAL route every 6 hours As needed; 30 tablet. Cipro 250 mg Oral Tablet - take 1 tablet by ORAL route every 12 hours; 14 tablet. - Medication Reconciliation Form, Thank You Letter, Antibiotic Education, Prescription Opioid Use form. - Follow up: Private Physician; When: 2 - 3 days; Reason: Recheck today's complaints, Continuance of care, Re-evaluation by your physician. - Problem is new. - Symptoms have improved. Signatures: Dispatcher [employer] EDMS Imer Turner MD MD cha Ballard, Brenda RN Maddie Gimenez RN RN lp1 Wilber Kang RN Keny Huynh RN RN rr5 Corrections: (The following items were deleted from the chart) 02:29 02:28 Data reviewed: vital signs, nurses notes, lab test result(s), EKG, radiologic chery studies, ultrasound, chery 05:01 03:52 12/11/2019 03:52 Discharged to Home. Impression: Dyspnea; Anxiety disorder, rr5 unspecified; Abuse of non-psychoactive substances; Alcohol abuse with intoxication; Urinary tract infection, site not specified; Cocaine abuse; Hypokalemia. Condition is Stable. Discharge Instructions: Alcohol Intoxication, Panic Attacks, Substance Use Disorder, Shortness of Breath, Shortness of Breath, Lmjy-ve-Cqrd, Alcohol Abuse and Nutrition, Panic Attacks, [id number]-cv-[id number], Urinary Tract Infection, Adult, Urinary Tract Infection, Adult, Yckj-ca-Equw, Potassium Content of Foods, Stimulant Use Disorder-Cocaine. Prescriptions for Benadryl 25 mg Oral Capsule - take 1 capsule by ORAL route every 6 hours As needed; 30 tablet, Cipro 250 mg Oral Tablet - take 1 tablet by ORAL route every 12 hours; 14 tablet. and Forms are Medication Reconciliation Form, Thank You Letter, Antibiotic Education, Prescription Opioid Use. Follow up: Private Physician; When: 2 - 3 days; Reason: Recheck today's complaints, Continuance of care, Re-evaluation by your physician. Problem is new. Symptoms have improved. chery
--- NOTE | 2019-12-11 03:52 | ER ---
Nurse's Notes [facility] Name: Erika Romero Age: 34 yrs Sex: Female : 1985 Arrival Date: 12/11/2019 Time: 02:21 Bed 2 Private MD: Diagnosis: Dyspnea;Anxiety disorder, unspecified;Abuse of non-psychoactive substances;Alcohol abuse with intoxication;Urinary tract infection, site not specified;Cocaine abuse;Hypokalemia Presentation: 12/11 02:28 Presenting complaint: Patient states: she is having right flank pain with urination she bb has been having urinary frequency x 4 days pt was at a club tonight drinking and came to the ED for the pain. ED staff were called to the parking lot for report of pt sounding like she was suffocating, pt was kneeling on the ground hyperventilating pt was assisted to wheelchair and brought into ED by this RN and Conrad Werner CLEANER WINDOW. Transition of care: patient was not received from another setting of care. Onset of symptoms was December 11, 2019. Risk Assessment: Do you want to hurt yourself or someone else? Patient reports no desire to harm self or others. Initial Sepsis Screen: Does the patient meet any 2 criteria? No. Patient's initial sepsis screen is negative. Does the patient have a suspected source of infection? No. Patient's initial sepsis screen is negative. Care prior to arrival: None. 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 - Coronavirus screen:: The patient has NOT traveled to [place], [place], or [place] in the past 14 days. Proceed with normal triage process as indicated. - Family history:: not pertinent. - Social history:: Smoking status: Reported history of juuling and/or vaping. unknown. - Ebola Screening: : No symptoms or risks identified at this time. Screenin:30 Fall Risk IV access (20 points). Total Hansen Fall Scale indicates No Risk (0-24 pts). rr5 02:58 Abuse screen: Denies threats or abuse. Denies injuries from another. Nutritional lp1 screening: No deficits noted. Tuberculosis screening: No symptoms or risk factors identified. Assessment: 02:30 General: Appears distressed, Behavior is anxious, crying, restless, Smells of alcohol. lp1 Pain: Complains of pain in suprapubic area Pain currently is 10 out of 10 on a pain scale. Quality of pain is described as sharp. Neuro: Level of Consciousness is awake, alert, obeys commands, Oriented to person, place, situation. Cardiovascular: Patient's skin is warm and dry. Rhythm is sinus tachycardia. Respiratory: Reports shortness of breath Airway is patent Respiratory effort is labored, Respiratory pattern is hyperventilation Breath sounds are clear bilaterally. Onset: The symptoms/episode began/occurred just prior to arrival, the patient has moderate shortness of breath. GI: Abdomen is non-distended. : Reports burning with urination, cramping. EENT: Throat is clear. Derm: Skin is pink, warm \T\ dry. Musculoskeletal: No deficits noted. 03:25 Reassessment: Patient appears in no apparent distress at this time. Patient is alert, rr5 oriented x 3, equal unlabored respirations, skin warm/dry/pink. went for CT scan. 04:09 Reassessment: Patient appears in no apparent distress at this time. Patient is alert, rr5 oriented x 3, equal unlabored respirations, skin warm/dry/pink. awaiting for CT result, ordered for discharge after the result. 04:56 Reassessment: Patient appears in no apparent distress at this time. Patient is alert, rr5 oriented x 3, equal unlabored respirations, skin warm/dry/pink. results came back. ED provider order for discharge. discharge instruction given and explained without complaints made. Vital Signs: 02:32 BP 145 / 93; Pulse 138; Resp 22 S; Pulse Ox 98% on R/A; Weight 65.77 kg (R); Height 4 bb ft. 11 in. (149.86 cm) (R); Pain 10/10; 02:55 Temp 98.5(O); lp1 03:20 BP 141 / 85; Pulse 125; Resp 20; Pulse Ox 99% ; rr5 04:11 BP 132 / 76; Pulse 116; Resp 19; Pulse Ox 99% on R/A; rr5 04:58 BP 125 / 70; Pulse 105; Resp 17; Temp 98.6; Pulse Ox 99% ; rr5 02:32 Body Mass Index 29.29 (65.77 kg, 149.86 cm) bb ED Course: 02:21 Patient arrived in ED. [id number] 02:24 Imer Turner MD is Attending Physician. chery 02:24 Initial lab(s) drawn, by me, sent to lab. Inserted saline lock: 18 gauge in right lp1 antecubital area, using aseptic technique. Blood collected. 02:32 Triage completed. bb 02:32 Arm band placed on Patient placed in an exam room, on a stretcher, on pulse oximetry. bb 02:48 Wilber Kang, FANI is Primary Nurse. rv 02:58 Patient has correct armband on for positive identification. Side rails up X2. Pulse ox lp1 on. NIBP on. 04:26 Chest Single View XRAY In Process Unspecified. EDMS 04:33 CT Stone Protocol In Process Unspecified. EDMS 04:33 CT Chest For PE Angio In Process Unspecified. EDMS 04:58 No provider procedures requiring assistance completed. IV discontinued, intact, rr5 bleeding controlled, No redness/swelling at site. Pressure dressing applied. Administered Medications: 02:45 Drug: NS 0.9% 1000 ml Route: IV; Rate: 1 bolus; Site: right antecubital; lp1 04:00 Follow up: Response: No adverse reaction; IV Status: Completed infusion; IV Intake: rr5 1000ml 02:45 Drug: Ativan 1 mg Route: IVP; Site: right antecubital; lp1 03:45 Follow up: Response: No adverse reaction; Anxiety decreased rr5 02:48 Drug: Zofran 4 mg Route: IVP; Site: right antecubital; lp1 03:50 Follow up: Response: No adverse reaction rr5 03:05 Drug: Rocephin 1 grams Route: IV; Rate: per protocol; Site: right antecubital; rv 04:00 Follow up: Response: No adverse reaction; IV Status: Completed infusion; IV Intake: [id number] 04:05 Drug: Potassium Effervescent Tablet 50 mEq Route: PO; rr5 04:59 Follow up: Response: No adverse reaction rr5 Intake: 04:00 IV: 10ml; Total: 10ml. rr5 04:00 IV: 1000ml; Total: 1010ml. rr5 Outcome: 03:52 Discharge ordered by . chery 04:58 Discharged to home ambulatory. rr5 04:58 Condition: stable 04:58 Discharge instructions given to patient, Instructed on discharge instructions, follow up and referral plans. medication usage, Demonstrated understanding of instructions, follow-up care, medications, Prescriptions given X 2. 05:01 Patient left the ED. rr5 Signatures: Dispatcher [employer] EDMS Imer Turner MD MD cha Ballard, Brenda, RN RN bb Maddie Fuentes RN RN lp1 Wilber Kang RN RN Keny Mendez RN RN rr5 Delfina [email or web address] Corrections: (The following items were deleted from the chart) 02:58 02:30 Respiratory: Reports shortness of breath Airway is patent Respiratory effort is lp1 labored, Respiratory pattern is hyperventilation Breath sounds are clear bilaterally. the patient has moderate shortness of breath lp1
[2019-12-11] MEDS ORDERED: POTASSIUM 25 MEQ EFFERV TAB ONE (04:08)
[2019-12-11 05:09] VITALS: O2SAT 99
[2019-12-11 05:12] VITALS: BP 125/70; TEMP 98.6
--- NOTE | 2019-12-11 08:44 | EKG ---
Test Date: 2019-12-11 Test Time: 02:54:27 Automobile Mechanic Helper: GIA MEASUREMENT RESULTS: Intervals: Rate: 98 HI: 126 QRSD: 82 QT: 356 QTc: 454 [place]: P: 58 HI: 126 QRS: 85 T: 30 INTERPRETIVE STATEMENTS: Normal sinus rhythm Normal ECG Compared to ECG 02/07/2019 07:19:06 Sinus bradycardia no longer present Electronically Signed On 12-11-19 08:43:53 CHINESE LANGUAGE PROFESSOR by Qasim Vigil
--- NOTE | 2019-12-11 10:10 | RAD REPORT ---
EXAM DESCRIPTION: RAD - Chest Single View - 12/11/2019 4:06 am CLINICAL HISTORY: COUGH COMPARISON: Chest Single View dated 02/07/2019 TECHNIQUE: AP portable chest image was obtained 12/11/2019 4:06 am . FINDINGS: Lungs are clear. Heart and vasculature are normal. No measurable pleural effusion and no p neumothorax. No acute bony abnormality seen. No acute aortic findings suspected. IMPRESSION: No acute cardiopulmonary process.
--- NOTE | 2019-12-11 10:11 | RAD REPORT ---
EXAM DESCRIPTION: CT - Stone Protocol - 12/11/2019 7:32 am CLINICAL HISTORY: ABD PAIN COMPARISON: None Available. TECHNIQUE: CTA of the chest obtained following IV administration of iodinated contrast. 3-D/MIP refo rmatted images available. CT of the abdomen and pelvis was prior to IV contrast administration. Subop timal evaluation of the solid organs and vasculature in the abdomen/pelvis due to lack of IV contrast . FINDINGS: Chest: Pulmonary arteries: Contrast bolus is adequate.No filling defects identified in the pulmonary arterie s to suggest pulmonary embolus. Thyroid: No abnormalities of the visualized thyroid. Great Vessels: Great vessels have normal anatomic configuration. Thoracic Aorta: No abnormalities of the thoracic aorta identified. Heart: No cardiomegaly, significant pericardial effusion, or coronary artery atherosclerosis Lymph Nodes: No enlarged mediastinal lymph nodes identified. Esophagus: No abnormalities of the esophagus identified. Other: No additional findings. Lungs: No airspace opacities identified. Pleura: No pleural effusion or pneumothorax. Trachea/Airways: No abnormalities of the visualized trachea or airways. Abdomen: Liver: The liver has normal size and density. Gallbladder: Prior cholecystectomy. Spleen, Pancreas, and Adrenal Glands: The spleen, pancreas, and adrenal glands are unremarkable. Kidneys: The kidneys have normal size without evidence of hydronephrosis. Wandering left kidney in the pelvis. Vasculature: The aorta and IVC have normal caliber and position. Stomach: The stomach and duodenum have normal course. Other: No free intraperitoneal air. Tiny fat-containing umbilical hernia. Small amount of free flui d. Pelvis: Bladder: Urinary bladder is unremarkable. Bowel: No dilated loops of large or small bowel. Appendix: Normal appendix. Pelvis: IUD in the uterus. Bones: No destructive bone lesions identified. IMPRESSION: 1. No pulmonary embolus. 2. Trace free pelvic fluid. This may be physiologic. 3. Left renal ptosis. If there is concern for renal vascular compromise contrast-enhanced abdominal s tudy would provide more complete characterization. This exam was performed according to our departmental dose-optimization program, which includes autom ated exposure control, adjustment of the mA and/or kV according to patient size and/or use of iterati ve reconstruction technique. 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 The interpreting radiologist is f ully responsible for the content of the report.
== END 2019-12-11 05:01 | disposition home or self-care (01) ==
LOC: ER 02:20
DX: F41.9 Anxiety disorder, unspecified (principal); F55.8 Abuse of other non-psychoactive substances; F14.10 Cocaine abuse, uncomplicated; F10.129 Alcohol abuse with intoxication, unspecified; N39.0 Urinary tract infection, site not specified; E87.6 Hypokalemia
CPT/HCPCS: 36415; 71045; 71275; 74176; 76377; 80048; 80076; 80307; 80320; 80329; 81003; 81025; 82805; 85025; 85610; 85730; 87086; 87088; 93005; 96365; 96375; 99284; J0696; J2405; J7030; Q9967

== ENCOUNTER 2020-05-01 12:36 | Emergency (ER) | payer OTHER, SELFPAY ==
--- NOTE | 2020-05-01 14:04 | ER ---
Nurse's Notes [facility] Name: Erika Romero Age: 34 yrs Sex: Female : 1985 Arrival Date: 05/01/2020 Time: 12:39 Bed 5 Private MD: Diagnosis: Fever, unspecified;Viral Syndrome Presentation: 05/01 12:43 Chief complaint: Patient states: Nasal congestion, shortness on breath x 1 week, denies jl7 cough; vomited yesterday, denies diarrhea; decreased taste, can smell strong smells; denies fever, reports feeling weak. Coronavirus screen: Surgical mask placed on patient. Patient moved to private room, placed in contact and droplet isolation with eye protection until further assessment. Patient denies a cough. Patient reports shortness of breath or difficulty breathing. Patient reports a measured and/or subjective temperature greater than 100.4F. Patient denies travel on a cruise ship or to a country the [facility] currently lists as an affected area. Patient denies contact with known and/or suspected case of COVID-19. Ebola Screen: No symptoms or risks identified at this time. Initial Sepsis Screen: Does the patient meet any 2 criteria? No. Patient's initial sepsis screen is negative. Does the patient have a suspected source of infection? No. Patient's initial sepsis screen is negative. Risk Assessment: Do you want to hurt yourself or someone else? Patient reports no desire to harm self or others. Onset of symptoms was April 24, 2020. Care prior to arrival: None. 12:43 Method Of Arrival: Ambulatory jl7 12:43 Acuity: CESILIA 4 jl7 Triage Assessment: 12:47 General: Appears in no apparent distress. uncomfortable, ill, Behavior is calm, jl7 cooperative, appropriate for age. Pain: Denies pain. Respiratory: Reports shortness of breath at rest Airway is patent Respiratory effort is even, unlabored, Respiratory pattern is regular, symmetrical, Onset: The symptoms/episode began/occurred gradually, the patient has mild shortness of breath. 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 - Social history:: Smoking status: Patient reports the use of cigarette tobacco products, smokes one-half pack cigarettes per day, Patient uses street drugs, cocaine, marijuana. - Family history:: not pertinent. - Hospitalizations: : No recent hospitalization is reported. Screenin:34 Abuse screen: Denies threats or abuse. Denies injuries from another. Nutritional bp screening: No deficits noted. Tuberculosis screening: No symptoms or risk factors identified. Fall Risk None identified. Assessment: 12:50 General: SEE TRIAGE NOTE. bp 13:30 Cardiovascular: Rhythm is sinus rhythm. Respiratory: Airway is patent Breath sounds are bp clear bilaterally. 14:47 Reassessment: PT D/C HOME AMBULATORY, DX WITH VIRAL SYNDROME. PT TO HOME QUARANTINE bp UNTIL NEGATIVE COVID. Vital Signs: 12:43 BP 122 / 91; Pulse 73; Resp 19; Temp 98.2; Pulse Ox 98% ; Weight 68.95 kg; Height 4 ft. jl7 11 in. (149.86 cm); Pain 0/10; 13:30 BP 101 / 71; Pulse 67; Resp 17; Pulse Ox 100% ; bp 14:47 BP 101 / 69; Pulse 58; Resp 16; Temp 98.5; Pulse Ox 100% ; bp 12:43 Body Mass Index 30.70 (68.95 kg, 149.86 cm) jl7 ED Course: 12:39 Patient arrived in ED. ag5 12:46 Triage completed. jl7 12:47 Arm band placed on right wrist. jl7 12:51 Denis Pond MD is Attending Physician. rn 13:14 Patient has correct armband on for positive identification. Placed in gown. Bed in low mh5 position. Call light in reach. Warm blanket given. Pulse ox on. NIBP on. 13:33 Geovanni Lawrence, FANI is Primary Nurse. bp 14:47 No provider procedures requiring assistance completed. Patient did not have IV access bp during this emergency room visit. Administered Medications: No medications were administered Outcome: 14:03 Discharge ordered by . rn 14:47 Discharged to home ambulatory. bp 14:47 Condition: stable 14:47 Discharge instructions given to patient, Instructed on discharge instructions, follow up and referral plans. Demonstrated understanding of instructions, follow-up care. 14:49 Patient left the ED. bp Signatures: Denis Pond MD MD rn Hannah Cao 5 Loi Navarro RN RN jl7 Geovanni Lawrence RN RN bp David Carmona 5
--- NOTE | 2020-05-01 14:04 | EDPHYS ---
Physician Documentation [facility] Name: Erika Romero Age: 34 yrs Sex: Female : 1985 Arrival Date: 05/01/2020 Time: 12:39 Bed 5 Private MD: ED Physician Denis Pond HPI: 05/01 13:06 This 34 yrs old Female presents to ER via Ambulatory with complaints of Fever, rn Breathing Difficulty, Decreased Appetite. 13:20 The patient reports fever, not measured (subjective). Onset: The symptoms/episode rn began/occurred 1 week(s) ago. Modifying factors: there are no obvious modifying factors. Associated signs and symptoms: Pertinent positives: chills, cough, decreased appetite, runny nose. Severity of symptoms: At their worst the symptoms were mild in the emergency department the symptoms are unchanged. The patient has not experienced similar symptoms in the past. The patient has not recently seen a physician. Reports subjective fever, cough that has improved, fatigue, and loss of taste and smell, no known sick contacts, no sob, no abd pain. . 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 - Social history:: Smoking status: Patient reports the use of cigarette tobacco products, smokes one-half pack cigarettes per day, Patient uses street drugs, cocaine, marijuana. - Family history:: not pertinent. - Hospitalizations: : No recent hospitalization is reported. ROS: 13:20 Constitutional: Negative for weight loss, Eyes: Negative for injury, pain, redness, and recruiting intern, ENT: + congestion and runny nose Neck: Negative for injury, pain, and swelling, Cardiovascular: Negative for chest pain, palpitations, and edema, Respiratory: Negative for shortness of breath, cough, wheezing, and pleuritic chest pain, Abdomen/GI: Negative for abdominal pain, nausea, vomiting, diarrhea, and constipation, Back: Negative for injury and pain, : Negative for injury, bleeding, discharge, and swelling, MS/Extremity: Negative for injury and deformity, Skin: Negative for injury, rash, and discoloration, Neuro: Negative for numbness, tingling, and seizure. Exam: 13:20 Constitutional: This is a well developed, well nourished patient who is awake, alert, rn and in no acute distress. Head/Face: Normocephalic, atraumatic. Eyes: Pupils equal round and reactive to light, extra-ocular motions intact. Lids and lashes normal. Conjunctiva and sclera are non-icteric and not injected. Cornea within normal limits. Periorbital areas with no swelling, redness, or edema. Neck: Trachea midline, no thyromegaly or masses palpated, and no cervical lymphadenopathy. Supple, full range of motion without nuchal rigidity, or vertebral point tenderness. No Meningismus. Cardiovascular: Regular rate and rhythm. No pulse deficits. Respiratory: Speaking full sentences. No increased work of breathing, no retractions or nasal flaring. Abdomen/GI: soft, non-tender Skin: Warm, dry MS/ Extremity: Pulses equal, no cyanosis. Neurovascular intact. Full, normal range of motion. Equal circumference. Neuro: Awake and alert, GCS 15 Vital Signs: 12:43 BP 122 / 91; Pulse 73; Resp 19; Temp 98.2; Pulse Ox 98% ; Weight 68.95 kg; Height 4 ft. jl7 11 in. (149.86 cm); Pain 0/10; 13:30 BP 101 / 71; Pulse 67; Resp 17; Pulse Ox 100% ; bp 14:47 BP 101 / 69; Pulse 58; Resp 16; Temp 98.5; Pulse Ox 100% ; bp 12:43 Body Mass Index 30.70 (68.95 kg, 149.86 cm) jl7 MDM: 12:51 Patient medically screened. rn 14:02 Differential diagnosis: viral Infection, URI. Data reviewed: vital signs, nurses notes, furnace erector test result(s), and as a result, I will discharge patient. Counseling: I had a detailed discussion with the patient and/or guardian regarding: the historical points, exam findings, and any diagnostic results supporting the discharge/admit diagnosis, lab results, the need for outpatient follow up, to return to the emergency department if symptoms worsen or persist or if there are any questions or concerns that arise at home. Special discussion: I discussed with the patient/guardian in detail that at this point there is no indication for admission to the hospital. It is understood, however, that if the symptoms persist or worsen the patient needs to return immediately for re-evaluation. ED course: Flu neg, COVID done and sent, will dc home with isolation and return precautions pending notification. . 05/01 13:04 Order name: Flu rn 05/01 13:04 Order name: COVID-19 rn Administered Medications: No medications were administered Disposition: 05/01/20 14:03 Discharged to Home. Impression: Fever, unspecified, Viral Syndrome. - Condition is Stable. - Discharge Instructions: Fever, Adult, COVID-19. - Medication Reconciliation Form, Thank You Letter, Antibiotic Education, Prescription Opioid Use, Work release form form. - Follow up: Private Physician; When: As needed; Reason: Recheck today's complaints, Re-evaluation by your physician. - Problem is an ongoing problem. - Symptoms are unchanged. Signatures: Dispatcher [employer] EDMS Denis Pond MD MD rn Leal, Jahala, RN RN jlGeovanni Cuellar RN RN bp Corrections: (The following items were deleted from the chart) 14:49 14:03 05/01/2020 14:03 Discharged to Home. Impression: Fever, unspecified; Viral bp Syndrome. Condition is Stable. Forms are Medication Reconciliation Form, Thank You Letter, Antibiotic Education, Prescription Opioid Use. Follow up: Private Physician; When: As needed; Reason: Recheck today's complaints, Re-evaluation by your physician. Problem is an ongoing problem. Symptoms are unchanged. rn
[2020-05-01 15:07] VITALS: O2SAT 100
[2020-05-01 15:45] VITALS: BP 101/69; TEMP 98.5
== END 2020-05-01 14:49 | disposition home or self-care (01) ==
LOC: ER 12:36
DX: B34.9 Viral infection, unspecified (principal); Z20.828 Contact with and (suspected) exposure to other viral communicable diseases; F17.210 Nicotine dependence, cigarettes, uncomplicated
CPT/HCPCS: 87804 ×2; 99284; U0001

== ENCOUNTER 2020-07-19 16:25 | Emergency (ER) | payer SELFPAY ==
--- NOTE | 2020-07-19 17:04 | EDPHYS ---
Physician Documentation [facility] Name: Erika Romero Age: 34 yrs Sex: Female : 1985 Arrival Date: 07/19/2020 Time: 16:26 Bed 7 Private MD: ED Physician Denis Pond HPI: 07/19 17:03 This 34 yrs old Female presents to ER via EMS with complaints of Psych Problem.jmm 17:03 The patient presents to the emergency department with anxiety. Past psychiatric jmm history: Psychiatric medications include: Zoloft. This is a 34 year old female with a history of bipolar disorder, depression, anxiety, that presents to the ED anxious. Patient sent in EMS. Patient currently states she is no SI or HI. But admits to previous attempts. Patient states she is under increased stress due to multiple sicknesses and worried she may lose her job. . 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 - Social history:: Smoking status: Patient reports the use of cigarette tobacco products, smokes one-half pack cigarettes per day. ROS: 17:03 Constitutional: Negative for fever, chills, and weight loss, Cardiovascular: Negative jmm for chest pain, palpitations, and edema, Respiratory: Negative for shortness of breath, cough, wheezing, and pleuritic chest pain. 17:03 Psych: Positive for anxiety. 17:03 All other systems are negative. Exam: 17:03 Head/Face: atraumatic. Eyes: EOMI, no conjunctival erythema appreciated ENT: Moist jmm Mucus Membranes Neck: Trachea midline, Supple Chest/axilla: Normal chest wall appearance and motion. Cardiovascular: Regular rate and rhythm. No edema appreciated Respiratory: Normal respirations, no respiratory distress appreciated Abdomen/GI: Non distended, soft Back: Normal ROM Skin: General appearance color normal MS/ Extremity: Moves all extremities, no obvious deformities appreciated, no edema noted to the lower extremities Neuro: Awake and alert, normal gait 17:03 Constitutional: The patient appears alert, awake, anxious. 17:03 Psych: Behavior/mood is anxious, uncooperative. 20:08 ECG was reviewed by the Attending Physician. [facility] Vital Signs: 16:37 BP 120 / 93; Pulse 98; Resp 17; Temp 98.2(TE); Pulse Ox 99% on R/A; Weight 55.34 kg (R);tw2 07/20 08:53 BP 121 / 79; Pulse 60; Resp 16; Temp 97.6; Pulse Ox 100% on R/A; Pain 0/10; em1 12:46 BP 120 / 72; Pulse 62; Resp 16; Temp 97.7; Pulse Ox 100% on R/A; Pain 0/10; jp3 16:00 BP 118 / 68; Pulse 66; Resp 16; Pulse Ox 98% on R/A; hb MDM: 07/19 16:33 Patient medically screened. [facility] 17:03 Data reviewed: vital signs, nurses notes. [facility] 17:22 Counseling: I had a detailed discussion with the patient and/or guardian regarding: the [facility] historical points, exam findings, and any diagnostic results supporting the discharge/admit diagnosis, the need for outpatient follow up, to return to the emergency department if symptoms worsen or persist or if there are any questions or concerns that arise at home. ED course: Patient refuses all testing. Refuses evaluation by Psychiatric team. Patient is A x O x 3 and appears to be able to make rational decisions. Patient currently denies HI, SI. Patient is given return precautions. . 18:17 ED course: Prior to final disposition the patient developed aggressive behavior while [facility] talking on the phone. After the call she declared she wanted to stab herself. . 07/20 00:27 Transition of care: After a detail discussion of the patient's case, care is [facility] transferred to Deven Chakraborty MD. 07:04 ED course: NAD, VSS, no focal neurological deficits, cooperative. Evaluated by [address] Psychiatry with recommendation of inpatient psychiatric treatment. Patient to go voluntary at this time.. 07:13 ED course: Pt sleeping comfortably, no problems overnight, signed out to me by Dr. fani Chakraborty pending psychiatric transfer. . 07/19 18:36 Order name: Acetaminophen; Complete Time: 21:09 [facility] 07/19 18:36 Order name: Basic Metabolic Panel; Complete Time: 21:09 [facility] 07/19 18:36 Order name: CBC with Diff; Complete Time: 20:05 [facility] 07/19 18:36 Order name: ETOH Level; Complete Time: 21:09 [facility] 07/19 18:36 Order name: Hepatic Function; Complete Time: 21:09 [facility] 07/19 18:36 Order name: PT-INR; Complete Time: 20:24 [facility] 07/19 18:36 Order name: Ptt, Activated; Complete Time: 20:24 [facility] 07/19 18:36 Order name: Salicylate; Complete Time: 20:24 [facility] 07/19 18:36 Order name: Urine Drug Screen; Complete Time: 06:20 [facility] 07/20 00:09 Order name: ETOH Level; Complete Time: 06:20 bb 07/20 00:15 Order name: Urine --Ancillary (enter results) [facility] 07/20 00:15 Order name: Urine Dipstick--Ancillary (enter results) [facility] 07/19 18:36 Order name: EKG; Complete Time: 18:37 [facility] 07/19 18:36 Order name: EKG - Nurse/Tech; Complete Time: 20:24 [facility] 07/19 18:36 Order name: IV Saline Lock; Complete Time: 20:24 [facility] 07/19 18:36 Order name: Labs collected and sent; Complete Time: 20:24 [facility] 07/19 18:36 Order name: Urine Dipstick-Ancillary (obtain specimen); Complete Time: 00:49 [facility] 07/20 00:15 Order name: Urine --Ancillary; Complete Time: 06:20 [facility] 07/20 00:15 Order name: Urine Dipstick-Ancillary; Complete Time: 06:20 [facility] 07/20 08:02 Order name: Diet Finger Food; Complete Time: 08:02 sv 07/20 11:02 Order name: Diet Finger Food; Complete Time: 11:02 ss 07/20 13:25 Order name: SARS-COV-2 RT PCR; Complete Time: 16:33 [facility] 07/20 16:22 Order name: Diet Finger Food; Complete Time: 16:23 sv EC/15 20:08 Rate is 75 beats/min. Rhythm is regular. QRS [place] is Normal. NM interval is normal. QRS jmm interval is normal. QT interval is normal. No Q waves. T waves are Normal. No ST changes noted. Reviewed by me. Administered Medications: 21:40 Drug: NS 0.9% 1000 ml Route: IV; Rate: 1 bolus; Site: right antecubital; ea 07/20 00:08 Follow up: Response: No adverse reaction; IV Status: Completed infusion; IV Intake: vc 1000ml 17:01 Drug: Motrin 800 mg Route: PO; 07/21 02:35 Follow up: Response: No adverse reaction vc Disposition: 07/20/20 08:09 Transfer ordered to Psych Facility. Diagnosis is Suicidal ideations. - Reason for transfer: Higher level of care. - Accepting physician is Dr. Pierce. - Condition is Stable. - Problem is new. - Symptoms have improved. Addendum: 07/22/2020 14:16 Co-signature as Attending Physician, Imer Turner MD I agree with the assessment and c erwin plan of care. Signatures: Dispatcher [employer] Lauryn Johnson, RN Imer Blakely MD MD cha Mickail, Joel, PA PA [facility] Denis Pond MD MD rn Barber, Rebecca RN FANI [facility] [place] Ald[place] RN Tammy Rangel ea 2 Deven Chakraborty MD MD 7 Sonia Zee RN vc Corrections: (The following items were deleted from the chart) 07/19 18:02 17:03 07/19/2020 17:03 Discharged to Home. Impression: Anxiety disorder, unspecified. [facility] Condition is Stable. Forms are Medication Reconciliation Form, Thank You Letter, Antibiotic Education, Prescription Opioid Use. Follow up: Private Physician; When: 2 - 3 days; Reason: Recheck today's complaints, Continuance of care, Re-evaluation by your physician. [facility] 07/20 00:10 00:09 ETHANOL+C.LAB.BRZ ordered. [facility] 13:25 07/19 18:38 CORONAVIRUS+MR.LAB.BRZ ordered. [facility] 07/20 16:36 08:09 07/20/2020 08:09 Transfer ordered to Psych Facility. Diagnosis is Suicidal rn ideations. Reason for transfer: Higher level of care. Accepting physician is . Condition is Stable. Problem is new. Symptoms have improved. rn 07/21 00:20 07/20 16:36 07/20/2020 08:09 Transfer ordered to Psych Facility. Diagnosis is Suicidal mw2 ideations. Reason for transfer: Higher level of care. Accepting physician is Dr. Pierce. Condition is Stable. Problem is new. Symptoms have improved. rn
--- NOTE | 2020-07-19 17:04 | ER ---
Nurse's Notes [facility] Name: Erika Romero Age: 34 yrs Sex: Female : 1985 Arrival Date: 07/19/2020 Time: 16:26 Bed 7 Private MD: Diagnosis: Suicidal ideations Presentation: 07/19 16:24 Chief complaint: EMS states: Pt. was at work and locked herself in the back room crying rb1 for three hours according to the coworkers. Pt. did not want to come to the hospital and EMS had to call PD for assistance. Has a history of anxiety and Bi Polar, has previous suicidal attempts. NKDA Reports vomiting due to the anxiety. Has Zoloft but has not been taking the medication. BP 126/80, P 102. 16:24 Note pt escorted to restroom at this time states "i need to pee", specimen cup provided.tw2 16:24 Coronavirus screen: At this time, the client does not indicate any symptoms associated rb1 with coronavirus-19. Ebola Screen: Patient denies travel to an Ebola-affected area in the 21 days before illness onset. 16:37 Initial Sepsis Screen: Does the patient meet any 2 criteria? No. Patient's initial rb1 sepsis screen is negative. Does the patient have a suspected source of infection? No. Patient's initial sepsis screen is negative. Risk Assessment: Do you want to hurt yourself or someone else? Patient reports desire/thoughts of hurting themselves or someone else. Provider notified. Onset of symptoms was July 19, 2020. 16:37 Method Of Arrival: EMS: [facility] rb1 16:37 Acuity: CESILIA 3 rb1 19:00 Acuity: CESILIA 2 ss Triage Assessment: 16:24 General: Appears distressed, Behavior is anxious, crying, Pt. stated, "I do not give rb1 you permission to administer me any medications or to do blood work. I know my rights and it's against the law if you do it without my consent." Voiced concern about losing her job because she is here.. Pain: Denies pain. Neuro: Level of Consciousness is awake, alert, obeys commands, Oriented to person, place, time, situation. Cardiovascular: Capillary refill < 3 seconds. Respiratory: Airway is patent Respiratory effort is even, unlabored, Respiratory pattern is regular, symmetrical. GI: Reports nausea, vomiting. : No signs and/or symptoms were reported regarding the genitourinary system. Derm: Bruising that is dark purple, on arms and legs Pt reports the bruises on her arms and legs are from her punching herself out of frustration. Denies that someone else caused the bruises.. Musculoskeletal: Range of motion: intact in all extremities. 16:38 General: Appears obese, Behavior is anxious, crying. Pain: Denies pain. 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 - Social history:: Smoking status: Patient reports the use of cigarette tobacco products, smokes one-half pack cigarettes per day. Screenin:24 Abuse screen: Denies threats or abuse. Nutritional screening: No deficits noted. rb1 Tuberculosis screening: No symptoms or risk factors identified. Fall Risk None identified. Assessment: 16:24 General: See triage assessment. rb1 17:38 Reassessment: I tried to speak with the pt. and the pt. does not wish to stay and wants rb1 to go home. 17:44 Reassessment: The pt. made a phone call and became upset and started yelling because rb1 her boyfriend told her that he doesn't want her back at the house. Pt. stated, "Just end it now and let me stab myself and get it over with." Once we spoke with the pt. she calmed down. Provider notified. 17:52 Reassessment: Pt. called her mother and became upset and started screaming and crying rb1 while on the telephone. Once she was off the phone the pt. calmed down and did not become aggressive towards staff. 18:17 Reassessment: On the phone with JORGE L to have SAROJ obtained as recommended by Mental health deputy as he is on the [place] [facility]. Spoke with Mental health deputy Bernabe phone number [phone] who states if [employer] is unable to help to call him back. 18:39 Reassessment: [employer] at bedside at this time. tw2 19:19 General: Appears in no apparent distress. Behavior is crying. Pain: Denies pain. Neuro: ea Level of Consciousness is awake, alert, obeys commands, Oriented to person, place, time, situation. Cardiovascular: Patient's skin is warm and dry. Respiratory: Airway is patent Respiratory effort is even, unlabored, Respiratory pattern is regular, symmetrical. Derm: Skin is pink, warm \\T\\ dry. Musculoskeletal: Circulation, motion, and sensation intact. 19:32 Reassessment: had long conversation with pt who states she is worried about losing her bb job as she is positive for cocaine and alcohol reassured pt that information is personal and would not be shared with her employer. Pt very upset and crying. 20:27 Reassessment: Patient and/or family updated on plan of care and expected duration. Pain ea level reassessed. Patient is alert, oriented x 3, equal unlabored respirations, skin warm/dry/pink. 22:09 Reassessment: Pt resting with eyes closed, respirations even and unlabored. Chest ea expansions even and symmetrical. 23:09 Reassessment: Patient and/or family updated on plan of care and expected duration. Pain ea level reassessed. Pt resting with eyes closed, respirations even and unlabored. Chest expansions even and symmetrical. 07/20 00:13 Reassessment: Patient and/or family updated on plan of care and expected duration. Pain ea level reassessed. Patient is alert, oriented x 3, equal unlabored respirations, skin warm/dry/pink. Pt ambulated to restroom tolerating well. 03:00 Reassessment: Patient and/or family updated on plan of care and expected duration. Pain ea level reassessed. Pt resting with eyes closed, respirations even and unlabored. Chest expansions even and symmetrical. 05:00 Reassessment: Patient and/or family updated on plan of care and expected duration. Pain ea level reassessed. Patient is alert, oriented x 3, equal unlabored respirations, skin warm/dry/pink. 06:10 Reassessment: Patient and/or family updated on plan of care and expected duration. Pain ea level reassessed. Pt resting with eyes closed, respirations even and unlabored. Chest expansions even and symmetrical. 08:00 Reassessment: Patient appears in no apparent distress at this time. No changes from sv previously documented assessment. Patient and/or family updated on plan of care and expected duration. Pain level reassessed. Patient is alert, oriented x 3, equal unlabored respirations, skin warm/dry/pink. 08:50 Reassessment: Pt given breakfast tray. sv 10:00 Reassessment: Patient appears in no apparent distress at this time. Pt asleep at this sv time. 12:00 Reassessment: Patient appears in no apparent distress at this time. Pt asleep at this sv time. 13:00 Reassessment: Patient appears in no apparent distress at this time. Patient and/or hb family updated on plan of care and expected duration. Pain level reassessed. Sitter remains at bedside. 13:15 Reassessment: Spoke with Netta with [facility] who states they ss do have beds available and to go ahead and fax over exclusionary and they will call back. 14:00 Reassessment: Patient appears in no apparent distress at this time. No changes from previously documented assessment. Patient and/or family updated on plan of care and expected duration. Pain level reassessed. 15:20 Reassessment: Patient appears in no apparent distress at this time. Pt asleep at this sv time. 15:24 Reassessment: Faxed over clinical data to [facility]. . Awaiting call back. 16:00 Reassessment: Patient appears in no apparent distress at this time. Pt asleep at this sv time. 16:08 Reassessment: Spoke with Elizabeth at [facility] who states that they have paged the conservation policy analyst and are awaiting a phone call back. 16:54 Reassessment: Patient appears in no apparent distress at this time. Patient and/or sv family updated on plan of care and expected duration. Pain level reassessed. c/o back pain. Informed Dr Pond, medication order received. 17:20 Reassessment: Pt given dinner tray. sv 17:51 Reassessment: Patient appears in no apparent distress at this time. hb 18:31 Reassessment: Patient appears in no apparent distress at this time. Patient and/or hb family updated on plan of care and expected duration. Pain level reassessed. Patient is alert, oriented x 3, equal unlabored respirations, skin warm/dry/pink. 19:30 Reassessment: Patient and/or family updated on plan of care and expected duration. Pain vc level reassessed. Patient is alert, oriented x 3, equal unlabored respirations, skin warm/dry/pink. Patient denies pain at this time. 19:50 Reassessment: Patient given sandwich and soda. No complaints at this time. vc 20:30 Reassessment: Patient appears in no apparent distress at this time. Patient and/or vc family updated on plan of care and expected duration. Pain level reassessed. Patient is alert, oriented x 3, equal unlabored respirations, skin warm/dry/pink. 21:00 Reassessment: Patient ambulated to the bathroom, No complains or concerns at this time. vc 21:30 Reassessment: Patient appears in no apparent distress at this time. Patient and/or vc family updated on plan of care and expected duration. Pain level reassessed. Patient is alert, oriented x 3, equal unlabored respirations, skin warm/dry/pink. 22:30 Reassessment: Patient and/or family updated on plan of care and expected duration. Pain vc level reassessed. Patient is alert, oriented x 3, equal unlabored respirations, skin warm/dry/pink. Psych: 07/19 16:24 Subjective: Patient's mood is sad, Delusions are denied, Hallucinations are denied rb1 Having thoughts of denies suicidal ideation at this time but has attempted in the past. Objective: Patient is uncooperative, Speech is normal, Affect is appropriate, Patient has mutilated themselves by Reports punching herself in the arms and legs when she gets frustrated. Interventions: Patient placed in hospital gown. Searched person for dangerous items. Suicide Risk Assessment: Sad Person Scale: Sex of patient: Female: Score 0 points. Age of patient: Score 1 point if patient 15-34. Depression: Score 1 point if signs of depression are present. Previous Attempt: Score 1 point if patient has previously attempted suicide. Substance Abuse: Score 1 point if patient abuses alcohol or drugs. Rational Thinking: Score 0 point if patient has rational thinking. Social Support: Score 0 if social support is present/available. Organized Plan: Score 0 if patient did not have an organized plan in place. Safety Checks: Personal items have been removed. Door is open. No visitors are present at this time. pt. is concerned that she will test positive for drugs and will lose her job if they find out. 07/20 19:00 Commitment: Patient will be an involuntary commitment. Commitment papers completed. vc Vital Signs: 07/19 16:37 BP 120 / 93; Pulse 98; Resp 17; Temp 98.2(TE); Pulse Ox 99% on R/A; Weight 55.34 kg (R);tw2 07/20 08:53 BP 121 / 79; Pulse 60; Resp 16; Temp 97.6; Pulse Ox 100% on R/A; Pain 0/10; em1 12:46 BP 120 / 72; Pulse 62; Resp 16; Temp 97.7; Pulse Ox 100% on R/A; Pain 0/10; jp3 16:00 BP 118 / 68; Pulse 66; Resp 16; Pulse Ox 98% on R/A; hb ED Course: 07/19 16:26 Patient arrived in ED. rb1 16:27 Abdulaziz Ayoub PA is PHCP. jmm 16:27 Imer Turner MD is Attending Physician. jmm 16:38 Arm band placed on. tw2 16:38 Placed in gown. tw2 16:40 Triage completed. rb1 17:37 Larisa Choi, RN is Primary Nurse. rb1 07/20 00:50 ETOH Level Sent. ds4 01:05 Contacted [facility] to have the patient screened. Spoke with Shara. Shara was tt3 transferred to speak with the nurse for other details. 01:24 Radha with [facility] called to screen the patient via facetime audio on the iPad. tt3 The number dialed for the screening is [phone]. 01:50 Pt chart faxed to [facility], [facility], [address], [facility], [facility], [facility], [facility], [facility], [facility], [facility], [facility], [facility], [facility] and [facility]. 05:17 [facility] called and denied the patient due to not having any beds. tt3 07:08 Urine Dipstick--Ancillary (enter results) Sent. sv 07:08 Urine --Ancillary (enter results) Sent. sv 07:29 Attending Physician role handed off by Imer Turner MD rn 07:29 Denis Pond MD is Attending Physician. rn 07:32 No provider procedures requiring assistance completed. ea 07:53 Primary Nurse role handed off by Larisa Choi, FANI sv 08:01 Lauryn Quigley, FANI is Primary Nurse. sv 08:15 talked to Kay at [facility], no [facility] beds at this time, pt will be put bd on waiting list. 08:18 Jd from [facility] called, said pt has been put on waiting list for [facility] bed. bd 08:54 Diet tray given. em1 09:05 Assisted to bathroom. em1 15:09 faxed chart and exclusionary to [facility]. bd 17:42 pt accepted at [facility] by Dr Pierce pending a bed and warrant. admin approval given bd by Netta. 17:44 [address] De La Torre for need of a warrant, states he will be here in about 45 min. bd 18:48 judge De La Torre arrived at ER filled out and signed transfer warrant order. bd 18:51 Clementina Auguste (manager data warehouse) notarized transfer warrant. bd 18:52 transfer warrant faxed to [facility]. talked to Netta warrant will be bd reviewed. 19:02 Report given to Sonia MOHR and Keny RN. sv 19:09 Primary Nurse role handed off by Lauryn Quigley, FANI vc 19:09 Sonia Zee, FANI is Primary Nurse. vc 19:24 called [facility] spoke to Erlinda to see if she received the warrant paper for the mw2 patient. She stated "we have yet to receive that paperwork.". 19:30 refaxed patient warrant information to [id number]. mw2 19:35 called [facility] spoke to Erlinda to see if they received the fax. She stated "we did mw2 and we will give you a call back later.". 20:36 called [facility] for an update on the bed status. Spoke to Sweetie she stated" we are mw2 waiting for the unit to approve the patient so until they do we wait.". 22:20 Patient did not have IV access during this emergency room visit. 22:37 called [facility] spoke to Sweetie regarding the patients transfer. She said "they are mw2 still determining on whether or not they can convert the warrant since its not from our [facility]. It is much easier to do that during the day time than it is at night, but there are trying.". 23:24 Lee Ann from [facility] called to give the number for nurse to nurse [phone]. mw2 23:36 called [facility] spoke to Omar regarding pt room assignment she said "the patient mw2 will be going to [place] [id number]". 23:37 [facility] notified spoke to Nunu to have a [facility] transfer mw2 patient.. Administered Medications: 07/19 21:40 Drug: NS 0.9% 1000 ml Route: IV; Rate: 1 bolus; Site: right antecubital; 07/20 00:08 Follow up: Response: No adverse reaction; IV Status: Completed infusion; IV Intake: vc 1000ml 17:01 Drug: Motrin 800 mg Route: PO; 07/21 02:35 Follow up: Response: No adverse reaction vc Intake: 07/20 00:08 IV: 1000ml; Total: 1000ml. vc Outcome: 07/19 17:03 Discharge ordered by . [facility] 07/20 08:09 ER care complete, transfer ordered by MD. rn 13:15 Instructed on the need for transfer. 07/21 00:20 Patient left the ED. mw2 00:20 Transferred to [facility], to other acute care facility: Patient vc transferred to [facility] with [facility].. 00:20 Condition: stable Signatures: Chaya Callahan Stephanie RN RN Abdulaziz Ayoub PA PA [facility] Telma White RN RN Denis Naqvi MD MD rn Martinez, Eric em1 Lubna Hinson RN RN Rafael Carvajal ds4 Larisa Choi, RN FANI [facility] Hallie Charlton RN RN hb Wise, Tara, RN RN tw2 Spring Aldridge RN RN Tammy Lopez mw2 Byron Zamarripa jp3 Sonia Zee RN RN vc Dionte Velasco tt3 Corrections: (The following items were deleted from the chart) 07/19 16:40 16:24 Chief complaint: EMS states: Pt. was at work and locked herself in the back room rb1 crying for three hours according to the coworkers. Pt. did not want to come to the hospital and EMS had to call PD for assistance. Has a history of anxiety and Bi Polar rb1 18:51 17:44 Reassessment: The pt. made a phone call and became upset and started yelling rb1 because her boyfriend told her that he doesn't want her back at the house. Once we spoke with the pt. she calmed down. rb1 19:05 17:38 Reassessment: I tried to speak with the pt. and the pt. does not wish to stay and rb1 wants to go home. rb1 19:14 17:44 Reassessment: The pt. made a phone call and became upset and started yelling rb1 because her boyfriend told her that he doesn't want her back at the house. Pt. stated, "Just end it now and let me stab myself and get it over with." Once we spoke with the pt. she calmed down. [facility] 07/20 16:00 15:58 Reassessment: Spoke with Netta with [facility] transfer [facility] who ss states they do have beds available and to go ahead and fax over exclusionary and they will call back. 16:01 15:24 Reassessment: Faxed over exclusionary forms. Awaiting call back [facility] 17:07 16:54 Reassessment: Patient appears in no apparent distress at this time. Patient sv and/or family updated on plan of care and expected duration. Pain level reassessed. sv
[2020-07-19 20:03] LABS: Absolute Lymphocytes (CBC) 2.3 K/uL (0.7-4.9); Basophils % 0.7 % (0-1.3); Hematocrit 45.5 % (36.0-45.0); Lymphocytes % 34.4 % (15.3-44.8); MPV 8.3 fL (7.6-11.3); RBC Red Blood Cell Count 4.65 M/uL (3.86-4.86)
[2020-07-19 20:08] LABS: Protime INR 0.97
[2020-07-19 20:27] LABS: ALT/SGPT 24 U/L (12-78); AST/SGOT 19 U/L (15-37); Albumin 3.9 g/dL (3.4-5.0); Alkaline Phosphatase 100 U/L (45-117); BUN Blood Urea Nitrogen 3 mg/dL (7-18); Bicarbonate 25 mmol/L (21-32); Bilirubin Direct < 0.1 mg/dL (0-0.2); Bilirubin Total 0.3 mg/dL (0.2-1.0); Glucose Level 92 mg/dL (74-106); Potassium 3.4 mmol/L (3.5-5.1); Protein, Total 8.2 g/dL (6.4-8.2); Sodium Level 142 mmol/L (136-145)
[2020-07-19] MEDS ORDERED: NA CHLORIDE 0.9% 1,000 ML ONE (21:49)
[2020-07-20 00:53] LABS: Barbiturates NEGATIVE (NEGATIVE); Benzodiazepines NEGATIVE (NEGATIVE); Cocaine POSITIVE (NEGATIVE); METHAMPHETAM NEGATIVE (NEGATIVE); Methadone NEGATIVE (NEGATIVE); Opiates NEGATIVE (NEGATIVE); Phencyclidine NEGATIVE (NEGATIVE); THC Cannibis NEGATIVE (NEGATIVE)
[2020-07-20 01:17] LABS: Urine Blood NEGATIVE (NEG); Urine Glucose NEGATIVE (NEG); Urine Protein NEGATIVE (NEG)
--- NOTE | 2020-07-20 05:51 | EKG ---
Test Date: 2020-07-19 Test Time: 20:08:09 Electronic Equipment Trades Worker: SANJUANITA MEASUREMENT RESULTS: Intervals: Rate: 75 WI: 128 QRSD: 82 QT: 386 QTc: 431 [place]: P: 60 WI: 128 QRS: 70 T: 31 INTERPRETIVE STATEMENTS: Normal sinus rhythm Normal ECG Compared to ECG 12/11/2019 02:54:27 No significant changes Electronically Signed On 07-20-20 05:50:02 CDT by Jace Chávez
[2020-07-20] MEDS ORDERED: IBUPROFEN 400 MG TAB ONE (17:11)
[2020-07-21 00:41] VITALS: TEMP 97.7
[2020-07-21 00:43] VITALS: BP 118/68; O2SAT 98
== END 2020-07-21 00:20 ==
LOC: ER 16:25
DX: R45.851 Suicidal ideations (principal); Z20.828 Contact with and (suspected) exposure to other viral communicable diseases; F31.9 Bipolar disorder, unspecified; F17.210 Nicotine dependence, cigarettes, uncomplicated
CPT/HCPCS: 36415; 80048; 80076; 80307; 80320; 80329; 85025; 85610; 85730; 93005; 96360; 96361; 99285; J7030

== ENCOUNTER 2020-09-27 19:28 | Inpatient (IN) | payer SELFPAY ==
--- OUTSIDE RECORDS SUMMARY | 2020-09-27 19:30 | XMS REPORT | Continuity of Care Document ---
:1985 Author Organization [facility] t Address [address] [place] [address] [address]. [address] [place] [address] Care Team Providers Name Role Phone Asked, Pcp Primary Care Physician Unavailable Laure Pierce MD Attending Clinician Crystal Hernandez MD Attending Clinician ELIDA Admitting Clinician Unavailable Problems Condition Condition Condition Status Onset Resolution Last Treating Co mments Source Name Details Category Date Date Treatment Clinician Date Panic Panic Disease Active [place] disorder disorder 07-21 Method i 00:00: st 00 Allergies, Adverse Reactions, Alerts This patient has no known allergies or adverse reactions. Social History Social Habit Start Date Stop Date Quantity Comments Source History of Cigarette Smoker [place] [employer] tobacco use Sex Assigned At [facility] ethodi Tobacco use and 2020-07-21 2020-07-21 Never used [facility]ist exposure 00:00:00 00:00:00 Alcohol intake 2020-07-21 2020-07-21 Current drinker [place] [employer] 00:00:00 00:00:00 of alcohol (finding) Smoking Status Start Date Stop Date Source Current some day smoker 2020-07-21 00:00:00 [place] [employer] Medications Ordered Filled Start Stop Current Ordering Indication Dosage Frequency Signature Comments Components Source Medication Medication Date Date Medication? Clinician (SIG) Name Name nicotine 2019- No smoking 1{patch Q24H Place 1 [place] (NICODERM 07-21 cessation } patch on [facility] CQ) 14 00:00: 23:[address] mg/24 hr 00 :00 daily as needed (nicotine cravings,) for up to 30 days .stop smoking. Vital Signs Vital Name Observation Time Observation Value Comments Source Body temperature 2020-07-21 12:00:32 36.61 Kami Korin Rand Body height 2020-07-21 03:00:00 149.9 cm Jeffry Rand Body weight 2020-07-21 03:00:00 65.998 kg Jeffry Rand BMI 2020-07-21 03:00:00 29.39 kg/m2 Jeffry Rand Systolic blood 2020-07-21 02:33:21 123 mm[Hg] [place] [employer] pressure Diastolic blood 2020-07-21 02:33:21 81 mm[Hg] [place] [employer] pressure Heart rate 2020-07-21 02:33:21 65 /min Jeffry Rand Respiratory rate 2020-07-21 02:33:21 18 /min Korin Rand Oxygen saturation in 2020-07-21 02:33:21 97 /min Jeffry Rand Arterial blood by Pulse oximetry Procedures Procedure Date / Time Performed Performing Clinician Souranita e HEMOGLOBIN A1C 2020-07-21 03:10:00 Khadijah Long Met lori LIPID PANEL 2020-07-21 03:10:00 Khadijah Long Met [facility] HIV AG/AB COMBINATION 2020-07-21 03:10:00 Khadijah Long SYPHILIS TOTAL ANTIBODY 2020-07-21 03:10:00 Khadijah Long HCG QUALITATIVE, SERUM 2020-07-21 03:10:00 Khadijah Long SCREEN Encounters Start End Encounter Admission Attending Care Care Encounter Source Date/Time Date/Time Type Type Clinicians Facility Department ID 2020-07-21 2020-07-21 Inpatient ELIDA [facility] 023 [id number] [place] 00:00:00 00:00:00 [place] [address] Results Test Description Test Time Test Comments Results Result Comments Source Hemoglobin A1c 2020-07-21 08:03:58 Test Item Value Reference Range Interpretation Comme nts Hemoglobin A1C (test code = 4.9 % 4-5.6 HbA1c cutoffs for diagnosing 40531-6) diabetes:4.0% - 5.6% = normal5.7% - 6.4% = increased ris k for diabetes (prediabetes)9> =6.5% = [id number] for glycemic co ntrol (ADA 2016)< 7.0% Target for nonp regnant adults with diabetes. More or less stringent targets may be appropri ate for individual patients. <7.5% Target for Children and adolescents with type 1 diabetes. [facility]/Ab [id number] 05:42:14 Test Item Value Reference Range Interpretation Comments HIV Ag/Ab combination (test code Non-reactive Non-reactive = 5299) Teran AilynistSyphilis total [id number] 05:03:45 Test Item Value Reference Range Interpretation Comments Syphilis total Non-reactive Non-reactive No serologica l antibody (test code evidence of syphilis = 6194) infection. [place] MethodistLipid [id number] 04:31:40 Test Item Value Reference Interpretation Comments Range Cholesterol (test 179 mg/dL <200 code = 2093-3) Triglycerides (test 108 mg/dL <150 code = 2571-8) HDL cholesterol 59 mg/dL >40 (test code = 2085-9) LDL cholesterol 111 mg/dL <100 H Result obtai cherelle by direct (test code = 2089-1) LDL antoine surement Lipid panel SeeBelow Total Cholester ol (mg/dL) interpretation (test < 200 code = 66615-9) Desirable 200-239 Borderline -high >=240 Hi gh Triglyceri stacey (mg/dL) <150 No rmal 150-199 Borderline-high 200-499 High >=500 Very high HDL Choles terol (mg/dL) <40 Low (male) < 40 Low (female) L DL Cholesterol (mg /dL) <100 Optimal 1 00-129 Near or above o ptimal 130-159 Borderline-high 160-189 High >=190 Very high Risk Cat ergories that modify LDL goals.Risk Catergories LDL goal (mg/dL )CHD and CHD risk equiva lent <100 (10-year risk >20%)Multiple ( 2+) risk factors < 130 (10-year risk = <20%)0-1 risk factors <160 (<10-ye ar risk) Defining levels of lipids in metabolic syndromeTriglyc erides > =150 mg/dLHDL Choles terol Men <40 mg/dL Women <40 mg/dL Non-HDL cholest nikole is a second target f or therapy in personswith high triglycerides ( >=200 mg/dL) Lab Interpretation Abnormal (test code = 57255-1) [facility] qualitative, serum [id number] 04:01:24 Test Item Value Reference Range Interpretation Comments hCG qualitative, Negative Sensitivity of HCG test: serum (test code = 25 mIU/mL 2118-8) Jeffry Rand
--- OUTSIDE RECORDS SUMMARY | 2020-09-27 19:30 | XMS REPORT | Clinical Summary ---
:1985 Author Organization [facility] Address [address] [place] [address] Care Team Providers Name Role Phone Asked, No Pcp Primary Care Provider Unavailable Allergies No Known Active Allergies Medications Medication Sig Dispensed Refills Start Date End Date Status nicotine (NICODERM Place 1 patch on 30 patch 0 07/21/2020 CQ) 14 mg/24 the skin daily hrIndications: as needed smoking cessation (nicotine cravings,) for up to 30 days .stop smoking. Active Problems Problem Noted Date Panic disorder 07/21/2020 Encounters Date Type Specialty Care Team Description 07/21/2020 Hospital Encounter Psychiatry Pat Pierce MD Keenmon, Corinna M., MD 07/20/2020 Travel after 09/27/2019 Surgical History Surgery Date Site/Laterality Comments CHOLECYSTECTOMY Medical History Medical History Date Comments Anxiety Panic disorder Social History Tobacco Use Types Packs/Day Years Used Date Current Some Day Smoker Cigarettes Smokeless Tobacco: Never Used Tobacco Cessation: Ready to Quit: No Alcohol Use Drinks/Week oz/Week Comments Yes 2 Glasses of wine 2.0 Sex Assigned at Date Recorded Not on file Last Filed Vital Signs Vital Sign Reading Time Taken Comments Blood Pressure 123/81 07/21/2020 2:33 AM CDT Pulse 65 07/21/2020 2:33 AM CDT Temperature 36.6 C (97.9 F) 07/21/2020 12:00 PM CDT Respiratory Rate 18 07/21/2020 2:33 AM CDT Oxygen Saturation 97% 07/21/2020 2:33 AM CDT Inhaled Oxygen Concentration - - Weight 66 kg (145 lb 8 oz) 07/21/2020 3:00 AM CDT Height 149.9 cm (4' 11") 07/21/2020 3:00 AM CDT Body Mass Index 29.39 07/21/2020 3:00 AM CDT Plan of Treatment Not on file Procedures Procedure Name Priority Date/Time Associated Comments Diagnosis HCG QUALITATIVE, Routine 07/21/2020 3:10 Results for this SERUM SCREEN AM CDT procedure are i n the results section. SYPHILIS TOTAL Routine 07/21/2020 3:10 Results f or this ANTIBODY AM CDT procedure are i n the results section. HIV AG/AB COMBINATION Routine 07/21/2020 3:10 Re sults for this AM CDT procedure are i n the results section. LIPID PANEL Routine 07/21/2020 3:10 Results for this AM CDT procedure are i n the results section. HEMOGLOBIN A1C Routine 07/21/2020 3:10 Results f or this AM CDT procedure are i n the results section. after 09/27/2019 Results Syphilis total antibody (07/21/2020 3:10 AM CDT) Syphilis total Non-reactiveComment Non-reactive [facility] antibody : No serological HOSPITAL evidence of syphilis infection. Specimen Blood Performing Organization Address City/[facility] Phon e Number [facility] DEPARTMENT OF PATHOLOGY AND [address] [place] [address] [address] HIV Ag/Ab combination (07/21/2020 3:10 AM CDT) HIV Ag/Ab combination Non-reactive Non-reactive [facility] Specimen Blood Performing Organization Address City/[facility] Phon e Number [facility] DEPARTMENT OF PATHOLOGY AND [address] [place] [address] [phone] [address] hCG qualitative, serum screen (07/21/2020 3:10 AM CDT) hCG qualitative, NegativeComment: [facility] serum Sensitivity of HCG HOSPITAL test: 25 mIU/mL Specimen Blood Performing Organization Address City/[facility] Phon e Number [facility] DEPARTMENT OF PATHOLOGY AND [address] [place] [address] [place] [id number] Hemoglobin A1c (07/21/2020 3:10 AM CDT) Hemoglobin A1C 4.9 4.0 - 5.6 % [facility] Comment: HOSPITAL HbA1c cutoffs for diagnosing diabetes: 4.0% - 5.6% = normal 5.7% - 6.4% = increased risk for diabetes (prediabetes )9 >=6.5% = diabetes9 Goals for glycemic control (ADA 2016) < 7.0% Target for non adults with diabetes. More or less stringent targets may be appropriate for individual patients. <7.5% Target for Children and adolescents with type 1 diabetes. Specimen Blood Performing Organization Address [facility] Phon e Number [facility] DEPARTMENT OF PATHOLOGY AND [address], [place] [address] [address] Lipid panel (07/21/2020 3:10 AM CDT) Cholesterol 179 <200 mg/dL [facility] Triglycerides 108 <150 mg/dL [facility] HDL cholesterol 59 >40 mg/dL [facility] LDL cholesterol 111 (H)Comment: <100 mg/dL [place] Result obtained by [facility] direct [facility] measurement Lipid panel [facility] interpretation Comment: [facility] Total Cholesterol (mg/dL) HOSPIT AL <200 Desirable 200-239 Borderline-high >=240 High Triglycerides (mg/dL) <150 Normal 150-199 Borderline-high 200-499 High >=500 Very high HDL Cholesterol (mg/dL) <40 Low (male) <40 Low (female) LDL Cholesterol (mg/dL) <100 Optimal 100-129 Near or above optimal 130-159 Borderline-high 160-189 High >=190 Very high Risk Catergories that modify LDL goals. Risk Catergories LDL goal (mg/d L) CHD and CHD risk equivalent <100 (10-year risk >20%) Multiple (2+) risk factors <130 (10-year risk =<20%) 0-1 risk factors <160 (<10-year risk) Defining levels of lipids in metabolic syndrome Triglycerides >=150 mg/dL HDL Cholesterol Men <40 mg /dL Women <40 mg/ dL Non-HDL cholesterol is a second target for therapy in persons with high triglycerides (>=200 mg/dL) Specimen Blood Performing Organization Address [facility] Phon e Number [facility] DEPARTMENT OF PATHOLOGY AND [address], [place] [address] [id number] [place] [address] after 09/27/2019 Advance Directives For more information, please contact: [phone] Type Date Recorded Patient 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
[2020-09-27] MEDS ORDERED: NA CHLORIDE 0.9% 2,000 ML ONE (20:10)
[2020-09-27] MEDS ORDERED: CEFTRIAXONE/SWI 1gm 2 GM/20 ML SYR ONE (20:10)
[2020-09-27] MEDS ORDERED: ACETAMINOPHEN 500 MG TAB ONE (20:10)
[2020-09-27 20:29] LABS: Urine Amorphous Sediment 2+ /HPF (NONE SEEN); Urine Bacteria >50 /HPF (<20)
--- NOTE | 2020-09-27 20:44 | RAD REPORT ---
EXAM DESCRIPTION: CT - Stone Protocol - 09/27/2020 8:22 pm CLINICAL HISTORY: Flank pain. FLANK PAIN COMPARISON: <Comparisons> TECHNIQUE: Axial images were obtained without oral or IV contrast. Lack of contrast limits solid org an and vascular assessment. The [id number] spans the entirety of the system partially obscuring uppermost abdomen and lung bases. Coronal reformatted images were obtained and reviewed. All CT scans are performed using dose optimization technique as appropriate and may include automated exposure control or mA/KV adjustment according to patient size. FINDINGS: The lower lung kaufman are clear. Cholecystectomy. Imaged portions of the liver and spleen show no suspicious findings on non-contrast imaging. The panc reas and adrenal glands are normal. No pathologic lymphadenopathy in the abdomen or pelvis. Pelvic left kidney is present which appears mildly edematous with surrounding fat stranding. No right -sided stone or hydronephrosis No bowel obstruction, free air, free fluid or abscess. Normal appendix noted.IUD is present. No significant bony abnormality. IMPRESSION: Pelvic kidney is present with possible findings of acute pyelonephritis.
[2020-09-27 20:48] LABS: ALT/SGPT 17 U/L (12-78); AST/SGOT 16 U/L (15-37); Albumin 3.4 g/dL (3.4-5.0); Alkaline Phosphatase 98 U/L (45-117); BUN Blood Urea Nitrogen 6 mg/dL (7-18); Bicarbonate 25 mmol/L (21-32); Bilirubin Direct 0.2 mg/dL (0-0.2); Bilirubin Total 0.8 mg/dL (0.2-1.0); Glucose Level 139 mg/dL (74-106); Lipase 35 U/L (73-393); Potassium 3.3 mmol/L (3.5-5.1); Sodium Level 136 mmol/L (136-145); Troponin (Emerg Dept Use Only) < 0.02 ng/mL (0.0-0.045)
--- NOTE | 2020-09-27 20:56 | ER ---
Nurse's Notes [facility] Name: Erika Romero Age: 34 yrs Sex: Female : 1985 Arrival Date: 09/27/2020 Time: 19:30 Bed 6 Private MD: Diagnosis: Acute tubulo-interstitial nephritis-left pelvic kidney;Fever, unspecified;Vomiting, unspecified;Elevated white blood cell count;Hypokalemia Presentation: 09/27 19:37 Chief complaint: Patient states: Low back pain and lower abdominal pain since ca1 yesterday. Reports N/V, tenderness on lower abdominal area. Reports burning with urination, urinary urgency and frequency. Fever today. Last dose of Tylenol at 1400. Coronavirus screen: Client denies travel out of the [place] in the last 14 days. fever, headache, nausea, vomiting. Client presents with at least one sign or symptom that may indicate coronavirus-19. Standard/surgical mask placed on the client. Provider contacted for isolation considerations. The client reports previous COVID testing was negative. Date of collection: June 2020. Ebola Screen: Patient negative for fever greater than or equal to 101.5 degrees Fahrenheit, and additional compatible Ebola Virus Disease symptoms Patient denies exposure to infectious person. Patient denies travel to an Ebola-affected area in the 21 days before illness onset. No symptoms or risks identified at this time. Initial Sepsis Screen: Does the patient meet any 2 criteria? Temp <36.0*C (96.8*F)) or > 38.3*C (100.9*F). HR > 90 bpm. Yes Does the patient have a suspected source of infection? Yes: Dysuria/Frequency/Urgency/UTI. Risk Assessment: Do you want to hurt yourself or someone else? Patient reports no desire to harm self or others. Onset of symptoms was September 27, 2020. 19:37 Method Of Arrival: Ambulatory ca1 19:37 Acuity: CESILIA 2 ca1 COMMUNICATIONS LEAD: 19:41 LMP N/A - control method ca1 Historical: - Allergies: 19:41 No Known Allergies; ca1 - Home Meds: 19:41 None [Active]; ca1 - PMHx: 19:41 Anxiety; Bipolar disorder; Depression; ca1 - PSHx: 19:41 ; ca1 - Immunization history:: Adult Immunizations up to date, Flu vaccine is not up to date. - Social history:: Smoking status: Patient reports the use of cigarette tobacco products, denies chronic smoking, but will smoke occasionally. - Family history:: not pertinent. Screenin:00 Abuse screen: Denies threats or abuse. Nutritional screening: No deficits noted. ea Tuberculosis screening: No symptoms or risk factors identified. 22:11 Fall Risk IV access (20 points). ea Assessment: 20:00 General: Appears uncomfortable, Behavior is appropriate for age. Pain: Complains of ea pain in anterior aspect of left lateral abdomen and posterior aspect of left lateral abdomen and left lower quadrant and left mid back and left low back. Neuro: Level of Consciousness is awake, alert, obeys commands, Oriented to person, place, time, situation. Cardiovascular: Patient's skin is warm and dry. Respiratory: Airway is patent Respiratory effort is even, unlabored, Respiratory pattern is regular, symmetrical. Derm: Skin is dry, Skin is pale, Skin temperature is warm. 21:50 Reassessment: Patient and/or family updated on plan of care and expected duration. Pain ea level reassessed. Patient is alert, oriented x 3, equal unlabored respirations, skin warm/dry/pink. 22:30 Reassessment: Patient and/or family updated on plan of care and expected duration. Pain ea level reassessed. Patient is alert, oriented x 3, equal unlabored respirations, skin warm/dry/pink. 23:54 Reassessment: Patient and/or family updated on plan of care and expected duration. Pain ea level reassessed. Patient is alert, oriented x 3, equal unlabored respirations, skin warm/dry/pink. Pt admitted to second floor. Report called to Bisi MOHR. Vital Signs: 19:37 BP 119 / 80; Pulse 136; Resp 19 S; Temp 102.6(O); Pulse Ox 96% on R/A; Weight 67.59 kg ca1 (R); Height 4 ft. 11 in. (149.86 cm) (R); Pain 10/10; 22:10 BP 125 / 77; Pulse 98; Resp 18; Temp 99.2; Pulse Ox 98% ; ea 19:37 Body Mass Index 30.09 (67.59 kg, 149.86 cm) ca1 ED Course: 19:30 Patient arrived in ED. cl3 19:40 Triage completed. ca1 19:41 Arm band placed on right wrist. ca1 19:43 Imer Turner MD is Attending Physician. chery 19:44 Annie Marin, FANI is Primary Nurse. ll2 20:00 Patient has correct armband on for positive identification. Placed in gown. Bed in low ea position. Call light in reach. Side rails up X 1. 20:08 Chest Single View XRAY In Process Unspecified. EDMS 20:10 Inserted saline lock: 22 gauge in right forearm, using aseptic technique. Blood ds4 collected. Missed attempt(s): 20 gauge in right antecubital area. Bleeding controlled, band aid applied, catheter tip intact. 20:21 CT Stone Protocol In Process Unspecified. EDMS 20:55 Keny Pond MD is Hospitalizing Provider. chery 23:42 No provider procedures requiring assistance completed. Patient admitted, IV remains in ea place. Administered Medications: 20:00 Drug: Tylenol 1000 mg Route: PO; ea 21:00 Follow up: Response: No adverse reaction ea 20:30 Drug: NS 0.9% (30 ml/kg) 30 ml/kg Route: IV; Rate: bolus; Site: right antecubital; ea 22:11 Follow up: Response: No adverse reaction; IV Status: Completed infusion; IV Intake: ea 2000ml 20:59 Drug: Rocephin 2 grams Route: IV; Rate: per protocol; Site: right antecubital; ea 21:10 Follow up: Response: No adverse reaction; IV Status: Completed infusion; IV Intake: 10mlea 21:15 Drug: levofloxacin 500 mg Volume: 100 ml; Route: IVPB; Infused Over: 60 mins; Site: ea right antecubital; 23:56 Follow up: IV Status: Completed infusion; IV Intake: 100ml rv 21:58 Drug: Potassium Effervescent Tablet 25 mEq Route: PO; rv 23:56 Follow up: Response: No adverse reaction rv Intake: 21:10 IV: 10ml; Total: 10ml. ea 22:11 IV: 2000ml; Total: 2010ml. ea 23:56 IV: 100ml; Total: 2110ml. rv Outcome: 20:56 Decision to Hospitalize by Provider. chery 23:53 Admitted to Med/surg accompanied by tech, room 219, with chart, Report called to BISI rv RN 23:53 Condition: stable 23:53 Instructed on the need for admit. 23:57 Patient left the ED. rv Signatures: Dispatcher [employer] Imer Clements MD MD cha Swanson, Donovan ds4 Spring Aldridge, RN RN Wilber Garrido RN Lisa Henning RN Amanda Zhao cl3 Annie Marin RN RN ll2 Corrections: (The following items were deleted from the chart) 23:57 23:53 Admitted to Med/surg accompanied by tech, room 219, with chart, Report called to rv Receiving nurse alma
--- NOTE | 2020-09-27 20:56 | EDPHYS ---
Physician Documentation [facility] Name: Erika Romero Age: 34 yrs Sex: Female : 1985 Arrival Date: 09/27/2020 Time: 19:30 Bed 6 Private MD: BULMARO Physician Imer Turner HPI: 09/27 20:44 This 34 yrs old Female presents to ER via Ambulatory with complaints of Back chery Pain, Kidney Pain. 20:44 This 34 yrs old Female presents to ER via Ambulatory with complaints of Back chery Pain, Kidney Pain. 20:44 The patient presents with pain that is acute. The symptoms are located in the left low chery back and left mid back. 20:45 The patient presents with abdominal pain in the lower abdomen. Onset: The chery symptoms/episode began/occurred 1 day(s) ago. Onset: The symptoms/episode began/occurred last night. The pain radiates to the left low back and left mid back. 20:46 Associated signs and symptoms: Pertinent positives: abdominal pain, dysuria, fever, chery weakness. The problem was sustained from unknown cause. Modifying factors: The patient symptoms are alleviated by remaining still, rest, the patient symptoms are aggravated by any movement, walking. Severity of symptoms: At their worst the symptoms were moderate, in the emergency department the symptoms are unchanged. [employer]: 19:41 LMP N/A - control method ca1 Historical: - Allergies: 19:41 No Known Allergies; ca1 - Home Meds: 19:41 None [Active]; ca1 - PMHx: 19:41 Anxiety; Bipolar disorder; Depression; ca1 - PSHx: 19:41 ; ca1 - Immunization history:: Adult Immunizations up to date, Flu vaccine is not up to date. - Social history:: Smoking status: Patient reports the use of cigarette tobacco products, denies chronic smoking, but will smoke occasionally. - Family history:: not pertinent. ROS: 20:46 Eyes: Negative for injury, pain, redness, and discharge, ENT: Negative for injury, chery pain, and discharge, Neck: Negative for injury, pain, and swelling, Cardiovascular: Negative for chest pain, palpitations, and edema, Respiratory: Negative for shortness of breath, cough, wheezing, and pleuritic chest pain, : Negative for injury, bleeding, discharge, and swelling, MS/Extremity: Negative for injury and deformity, Skin: Negative for injury, rash, and discoloration, Neuro: Negative for headache, weakness, numbness, tingling, and seizure, Psych: Negative for depression, anxiety, suicide ideation, homicidal ideation, and hallucinations, Allergy/Immunology: Negative for hives, rash, and allergies, Endocrine: Negative for neck swelling, polydipsia, polyuria, polyphagia, and marked weight changes, Hematologic/Lymphatic: Negative for swollen nodes, abnormal bleeding, and unusual bruising. 20:46 Constitutional: Positive for body aches, chills, fatigue, fever, malaise. 20:46 Abdomen/GI: Positive for abdominal pain, nausea and vomiting, abdominal cramps, of the left lower quadrant. 20:46 Back: Positive for flank pain, on the left. 20:46 : Positive for urinary symptoms, urinary frequency, small amounts, burning with urination. Exam: 20:46 Constitutional: This is a well developed, well nourished patient who is awake, alert, chery and in no acute distress. Head/Face: Normocephalic, atraumatic. Eyes: Pupils equal round and reactive to light, extra-ocular motions intact. Lids and lashes normal. Conjunctiva and sclera are non-icteric and not injected. Cornea within normal limits. Periorbital areas with no swelling, redness, or edema. ENT: Nares patent. No nasal discharge, no septal abnormalities noted. Tympanic membranes are normal and external auditory canals are clear. Oropharynx with no redness, swelling, or masses, exudates, or evidence of obstruction, uvula midline. Mucous membranes moist. Neck: Trachea midline, no thyromegaly or masses palpated, and no cervical lymphadenopathy. Supple, full range of motion without nuchal rigidity, or vertebral point tenderness. No Meningismus. Chest/axilla: Normal chest wall appearance and motion. Nontender with no deformity. No lesions are appreciated. Respiratory: Lungs have equal breath sounds bilaterally, clear to auscultation and percussion. No rales, rhonchi or wheezes noted. No increased work of breathing, no retractions or nasal flaring. Back: No spinal tenderness. No costovertebral tenderness. Full range of motion. Pelvic Exam: Normal external genitalia. Speculum exam with closed cervical os, no discharge or bleeding noted. Bimanual exam with normal adnexa, no adnexal or cervical motion tenderness. Normal uterus. Female : Normal external genitalia. 20:46 Cardiovascular: Rate: tachycardic, Rhythm: regular, Pulses: Pulses are 4+ in bilateral radial, brachial, femoral, popliteal, posterior tibial and and dorsalis pedis arteries.. Heart sounds: normal, Edema: is not appreciated, JVD: is not appreciated. 20:46 Abdomen/GI: Inspection: distension, Bowel sounds: active, Palpation: moderate abdominal tenderness, in the posterior aspect of left lateral abdomen, anterior aspect of left lateral abdomen, left upper quadrant and left lower quadrant, Liver: no appreciated palpable abnormalities, Hernia: not appreciated. 20:52 ECG was reviewed by the Attending Physician. [facility] Vital Signs: 19:37 BP 119 / 80; Pulse 136; Resp 19 S; Temp 102.6(O); Pulse Ox 96% on R/A; Weight 67.59 kg ca1 (R); Height 4 ft. 11 in. (149.86 cm) (R); Pain 10/10; 22:10 BP 125 / 77; Pulse 98; Resp 18; Temp 99.2; Pulse Ox 98% ; ea 19:37 Body Mass Index 30.09 (67.59 kg, 149.86 cm) ca1 MDM: 19:43 Patient medically screened. chery 20:49 Differential diagnosis: Perforated Ulcer Pyelonephritis Ureterolithiasis bowel chery obstruction, gastritis, pancreatitis, Pelvic Inflammatory Disease, Pyelonephritis, urinary tract infection. Data reviewed: vital signs, nurses notes, lab test result(s), radiologic studies, CT scan, plain films. Data interpreted: hospital monitor: rate is 136 beats/min, rhythm is regular, Pulse oximetry: on room air is 96 %. Test interpretation: by ED physician or midlevel provider: plain radiologic studies. Counseling: I had a detailed discussion with the patient and/or guardian regarding: the historical points, exam findings, and any diagnostic results supporting the discharge/admit diagnosis, lab results, radiology results, the need for further work-up and treatment in the hospital. 09/27 19:50 Order name: Basic Metabolic Panel; Complete Time: 20:54 [facility] 09/27 19:50 Order name: Blood Culture Adult (2) [facility] 09/27 19:50 Order name: CBC with Diff [facility] 09/27 19:50 Order name: Lactate; Complete Time: 21:14 [facility] 09/27 19:50 Order name: LFT's; Complete Time: 20:54 [facility] 09/27 19:50 Order name: Lipase; Complete Time: 20:54 [facility] 09/27 19:50 Order name: Procalcitonin [facility] 09/27 19:50 Order name: Troponin (emerg Dept Use Only); Complete Time: 20:54 [facility] 09/27 19:50 Order name: Urine Microscopic Only; Complete Time: 20:54 [facility] 09/27 19:50 Order name: Urine Culture [facility] 09/27 19:52 Order name: COVID-19 [facility] 09/27 20:10 Order name: Urine --Ancillary (enter results) [facility] 09/27 20:10 Order name: Urine Dipstick--Ancillary (enter results) [facility] 09/27 20:10 Order name: Urine --Ancillary [facility] 09/27 19:50 Order name: Chest Single View XRAY; Complete Time: 21:14 [facility] 09/27 19:50 Order name: Accucheck; Complete Time: 20:18 [facility] 09/27 19:50 Order name: Cardiac monitoring; Complete Time: 20:18 [facility] 09/27 19:50 Order name: EKG - Nurse/Tech; Complete Time: 20:19 [facility] 09/27 19:50 Order name: IV Saline Lock - Large Bore; Complete Time: 20:19 [facility] 09/27 19:50 Order name: Labs collected and sent; Complete Time: 20:19 [facility] 09/27 19:50 Order name: O2 Per Protocol; Complete Time: 20:19 [facility] 09/27 19:50 Order name: CT Stone Protocol; Complete Time: 20:54 [facility] 09/27 20:10 Order name: Urine Dipstick-Ancillary [facility] 09/27 21:08 Order name: Manual Differential [facility] 09/27 23:22 Order name: SARS-COV-2 RT PCR [facility] 09/27 19:50 Order name: O2 Sat Monitoring; Complete Time: 20:19 [facility] 09/27 19:50 Order name: Urine Dipstick-Ancillary (obtain specimen); Complete Time: 20:19 [facility] 09/27 19:50 Order name: Urine Test (obtain specimen); Complete Time: 20:18 [facility] EC:52 Rate is 117 beats/min. Rhythm is regular. QRS [place] is Normal. SD interval is normal. chery QRS interval is normal. QT interval is normal. No Q waves. T waves are Normal. No ST changes noted. Clinical impression: Sinus tachycardia and No evidence of ischemia. Interpreted by me. Reviewed by me. Administered Medications: 20:00 Drug: Tylenol 1000 mg Route: PO; ea 21:00 Follow up: Response: No adverse reaction ea 20:30 Drug: NS 0.9% (30 ml/kg) 30 ml/kg Route: IV; Rate: bolus; Site: right antecubital; ea 22:11 Follow up: Response: No adverse reaction; IV Status: Completed infusion; IV Intake: ea 2000ml 20:59 Drug: Rocephin 2 grams Route: IV; Rate: per protocol; Site: right antecubital; ea 21:10 Follow up: Response: No adverse reaction; IV Status: Completed infusion; IV Intake: 10mlea 21:15 Drug: levofloxacin 500 mg Volume: 100 ml; Route: IVPB; Infused Over: 60 mins; Site: ea right antecubital; 23:56 Follow up: IV Status: Completed infusion; IV Intake: 100ml rv 21:58 Drug: Potassium Effervescent Tablet 25 mEq Route: PO; rv 23:56 Follow up: Response: No adverse reaction rv Disposition: 09/27/20 20:56 Hospitalization ordered by Keny Pond for Inpatient Admission. Preliminary diagnosis are Acute tubulo-interstitial nephritis - left pelvic kidney, Fever, unspecified, Vomiting, unspecified, Elevated white blood cell count, Hypokalemia. - Bed requested for Telemetry/MedSurg (Inpatient). - Status is Inpatient Admission. rv - Condition is Stable. - Problem is new. - Symptoms have improved. Signatures: Dispatcher [employer] [facility] Imer Turner MD MD cha Attema, Lee, COMPLIANCE ADVISOR-C COMPLIANCE ADVISOR-Cla1 Barby Gonzalez, RN Spring Walters RN RN ea Vicente, Ronaldo, Lisa Henning RN RN RN ca1 Corrections: (The following items were deleted from the chart) 21:17 20:56 Hospitalization Ordered by Keny Pond MD for Inpatient Admission. Preliminary [facility] diagnosis is Acute tubulo-interstitial nephritis - left pelvic kidney; Fever, unspecified; Vomiting, unspecified. Bed requested for Telemetry/MedSurg (Inpatient). Status is Inpatient Admission. Condition is Stable. Problem is new. Symptoms have improved. chery 23:29 21:17 09/27/2020 20:56 Hospitalization Ordered by Keny Pond MD for Inpatient cg Admission. Preliminary diagnosis is Acute tubulo-interstitial nephritis - left pelvic kidney; Fever, unspecified; Vomiting, unspecified; Elevated white blood cell count; Hypokalemia. Bed requested for Telemetry/MedSurg (Inpatient). Status is Inpatient Admission. Condition is Stable. Problem is new. Symptoms have improved. chery 23:57 23:29 09/27/2020 20:56 Hospitalization Ordered by Keny Pond MD for Inpatient rv Admission. Preliminary diagnosis is Acute tubulo-interstitial nephritis - left pelvic kidney; Fever, unspecified; Vomiting, unspecified; Elevated white blood cell count; Hypokalemia. Bed requested for Telemetry/MedSurg (Inpatient). Status is Inpatient Admission. Condition is Stable. Problem is new. Symptoms have improved. cg
--- NOTE | 2020-09-27 20:57 | RAD REPORT ---
EXAM DESCRIPTION: RAD - Chest Single View - 09/27/2020 8:08 pm CLINICAL HISTORY: COUGH Chest pain. COMPARISON: Chest Single View dated 12/11/2019; Chest Single View dated 02/07/2019 FINDINGS: Portable technique limits examination quality. The lungs are grossly clear. The heart is normal in size. No displaced fractures. IMPRESSION: No acute intrathoracic process suspected.
[2020-09-27 21:05] LABS: Absolute Lymphocytes (CBC) 0.6 K/uL (0.7-4.9); Basophils % 0.1 % (0-1.3); Lymphocytes % 4.3 % (15.3-44.8); RBC Red Blood Cell Count 4.18 M/uL (3.86-4.86)
[2020-09-27] MEDS ORDERED: Levofloxacin500mg IV 500 MG/100 ML BAG IV ONE (21:17)
[2020-09-27] MEDS ORDERED: POTASSIUM 25 MEQ EFFERV TAB ONE (21:51)
[2020-09-27 22:35] LABS: Urine Blood 1+ (NEG); Urine Glucose TRACE (NEG); Urine Protein 3+ (NEG)
--- NOTE | 2020-09-27 22:56 | P.HP ---
Certification for Inpatient Patient admitted to: Inpatient With expected LOS: >2 Midnights Patient will require the following post-hospital care: None Practitioner: I am a practitioner with admitting privileges, knowledge of patient current condition, hospital course, and medical plan of care. Services: Services provided to patient in accordance with Admission requirements found in Title 42 Section 412.3 of the Code of Federal Regulations <Conrad Agarwal - Last Filed: 09/27/20 22:52> Patient History Date of Service: 09/27/20 Primary Care Provider: None Reason for admission: Pyelonephritis History of Present Illness: 34-year-old female with history of anxiety, depression presents the emergency department for abdominal pain, fever, urinary symptoms since 09/25/2020. Patient was evaluated in the emergency department and found to have elevated white blood cell count 14.1 with left shift, mildly low potassium 3.3 urine showing greater than 50 bacteria greater than 50 white blood cell, 3+ leukocytes, nitrite positive. CT scan reveals a left pelvic kidney present with possible findings of acute pyelonephritis. Patient was given Levaquin and Rocephin in the emergency department, given sepsis fluids initial lactate negative. Patient's heart rate improved and was not hypotensive. When I saw the patient in the ED she is awake, alert, oriented x3. Patient was a bit lower and lower anterior that he would be expected with pyelonephritis this is likely because she has a left pelvic kidney. Vital signs are improved, patient heart rate less than 100, blood pressure around 120/80. Lactate normal. Patient does not appear septic at this time. Will be admitted for further evaluation and management. - Past Medical/Surgical History -: Anxiety/depression/bipolar -: Psychosocial/ Personal History: Patient is currently unemployed, living with her mother - Family History Family History: Reviewed- Non-Contributory - Social History Smoking Status: Current every day smoker Counseled patient to stop smoking for: less than 10 minutes Smoking therapy provided: No Alcohol use: Yes CD- Drugs: No Caffeine use: No Place of Residence: Home <Conrad Agarwal - Last Filed: 09/27/20 22:52> Date of Service: 09/29/20 <Keny Pond - Last Filed: 09/29/20 17:26> Allergies No Known Allergies Allergy (Verified 02/10/19 21:55) Home Medications: levoFLOXacin [Levaquin] 750 mg PO DAILY 10 Days #10 tab 09/29/20 Review of Systems 10-point ROS is otherwise unremarkable Gastrointestinal: Nausea, Vomiting, Abdominal Pain Genitourinary: Dysuria, Frequency, Urgency Musculoskeletal: Back Pain <Conrad Agarwal - Last Filed: 09/27/20 22:52> Physical Examination - Physical Exam General: Alert, In no apparent distress, Oriented x3 HEENT: Atraumatic, Normocephalic, Other (Mucous membranes dry) Neck: Supple Respiratory: Clear to auscultation bilaterally, Normal air movement Cardiovascular: No edema, Regular rate/rhythm, Normal S1 S2 Capillary refill: <2 Seconds Gastrointestinal: Normal bowel sounds, No masses, No rebound, No guarding, Tenderness (Mild abdominal tenderness noted) Musculoskeletal: No contractures, No erythema, No tenderness Integumentary: No tenderness/swelling, No erythema, No warmth Neurological: Normal speech, Normal strength at 5/5 x4 extr, Normal tone, Sensation intact - Studies Laboratory Data (last 24 hrs) 09/27/20 20:36: WBC 14.1 H, Hgb 14.0, Hct 40.0, Plt Count 233 09/27/20 20:10: Sodium 136, Potassium 3.3 L, BUN 6 L, Creatinine 0.92, Glucose 139 H, Total Bilirubin 0.8, AST 16, ALT 17, Alkaline Phosphatase 98, Lipase 35 L <Conrad Agarwal - Last Filed: 09/27/20 22:52> - Studies Microbiology Data (last 24 hrs): 09/27/20 20:00 Clean Catch Urine [place] Count - Final >100,000 CFU/ML. 09/27/20 20:00 Clean Catch Urine - Final Escherichia Coli <Keny Pond - Last Filed: 09/29/20 17:26> Assessment and Plan - Plan Assessment Acute left-sided pyelonephritis with pelvic kidney Plan Acute left-sided pyelonephritis with pelvic kidney: Continue with Rocephin/Levaquin, aggressive IV fluids, p.r.n. pain and nausea medications. Start with clear liquids and advance as tolerated. DVT prophylaxis Lovenox 40 mg subcutaneous once daily. Follow blood and urine cultures. Discharge Plan: Home Plan to discharge in: 48 Hours - Advance Directives Does patient have a Living Will: No Does patient have a Durable POA for Healthcare: No - Code Status/Comfort Care Code Status Assessed: Yes (Full code) Critical Care: No Time Spent Managing Pts Care (In Minutes): 55 <Conrad Agarwal - Last Filed: 09/27/20 22:52> - Plan Plan of care discussed with Conrad Agarwal, and I agree with the management plan as noted above. <Keny Pond - Last Filed: 09/29/20 17:26>
[2020-09-27 23:10] LABS: Blood Morphology Comment NOT SEEN (NOT SEEN); Platelet Estimate ADEQ
[2020-09-28] MEDS ORDERED: PROMETHAZINE INJ 25 MG/ML AMP IV PRN (00:13)
[2020-09-28] MEDS ORDERED: ONDANSETRON 4 MG/2 ML VIAL ONE (00:13)
[2020-09-28] MEDS ORDERED: MELATONIN 5 MG TABLET PO PRN (00:13)
[2020-09-28] MEDS: NA CHLORIDE 0.9% 1,000 ML IV SCH ×3 (00:37→17:10)
[2020-09-28] MEDS: ACETAMINOPHEN 500 MG TAB PO PRN ×2 (00:37→05:28)
[2020-09-28] MEDS: MORPHINE 2 MG/ML SYR IV PRN ×2 (00:38→05:28)
[2020-09-28] MEDS: HYDROCODONE/APAP 5/325 MG TAB PO PRN ×3 (01:39→21:08)
[2020-09-28 03:03] VITALS: BMI 29.8
[2020-09-28 04:27] LABS: Absolute Lymphocytes (CBC) 0.9 K/uL (0.7-4.9); Basophils % 0.1 % (0-1.3); Hematocrit 37.4 % (36.0-45.0); Lymphocytes % 5.9 % (15.3-44.8); MPV 8.6 fL (7.6-11.3)
[2020-09-28 04:42] LABS: ALT/SGPT 18 U/L (12-78); AST/SGOT 17 U/L (15-37); Albumin 2.6 g/dL (3.4-5.0); Alkaline Phosphatase 85 U/L (45-117); BUN Blood Urea Nitrogen 5 mg/dL (7-18); Bicarbonate 28 mmol/L (21-32); Bilirubin Total 0.8 mg/dL (0.2-1.0); Glucose Level 93 mg/dL (74-106); Magnesium 1.5 mg/dL (1.8-2.4); Potassium 3.2 mmol/L (3.5-5.1); Protein, Total 6.4 g/dL (6.4-8.2); Sodium Level 139 mmol/L (136-145)
[2020-09-28] MEDS ORDERED: Magnesium Sulfate 2gm IVPB 2 G/50 ML BAG IV ONE (05:08)
[2020-09-28] MEDS ORDERED: POTASSIUM CL SA 10 MEQ TAB PO ONE ×2 (05:09→21:00)
[2020-09-28] MEDS ORDERED: INFLUENZA VACCINE (for 3y+) 0.5 ML DOSE IMVAC ONE (09:00)
[2020-09-28] MEDS ORDERED: CEFTRIAXONE 1 GM/NS 50 ML 1 GM/50 ML BAG IV SCH (09:00)
[2020-09-28] MEDS: ONDANSETRON 4 MG/2 ML VIAL IV PRN ×2 (09:44→11:23)
[2020-09-28] MEDS: ENOXAPARIN 40 MG/0.4 ML SQ SCH (09:45)
[2020-09-28] MEDS: TRAMADOL HCL 50 MG TAB PO PRN ×2 (09:46→17:10)
[2020-09-28 12:38] LABS: Magnesium 2.5 mg/dL (1.8-2.4); Potassium 3.9 mmol/L (3.5-5.1)
--- NOTE | 2020-09-28 17:46 | P.PN ---
Subjective Date of Service: 09/28/20 Primary Care Provider: None Chief Complaint: Pyelonephritis Subjective: No new changes (feeling slightly better overall, continues with pain and nausea) Physical Examination - Vital Signs Temperature: 98.3 F Blood Pressure: 105/57 Pulse: 94 Respirations: 18 Pulse Ox (%): 98 - Physical Exam General: Alert, Mild distress Respiratory: Clear to auscultation bilaterally Cardiovascular: No edema, Regular rate/rhythm Gastrointestinal: Soft and benign, Tenderness (diffuse) Musculoskeletal: No tenderness Integumentary: No rashes Neurological: Normal speech, Normal affect - Studies Laboratory Data (last 24 hrs) 09/27/20 20:36: WBC 14.1 H, Hgb 14.0, Hct 40.0, Plt Count 233 09/27/20 20:10: Sodium 136, Potassium 3.3 L, BUN 6 L, Creatinine 0.92, Glucose 139 H, Total Bilirubin 0.8, AST 16, ALT 17, Alkaline Phosphatase 98, Lipase 35 L Assessment & Plan Physician Review Additional Text: Acute left-sided pyelonephritis with pelvic kidney Plan Acute left-sided pyelonephritis with pelvic kidney: Continue with Rocephin/Levaquin, aggressive IV fluids, p.r.n. pain and nausea medications. - continues with some pain and nausea this morning ADAT Follow blood and urine cultures. Code: full VTE: lovenox Dispo: anticipate dc home in ~48hrs, f/u cultures Time Spent Managing Pts Care (In Minutes): 35
[2020-09-28] MEDS ORDERED: CEFTRIAXONE/SWI 1gm 1 GM/10 ML SYR IV SCH (20:00)
[2020-09-28] MEDS ORDERED: Levofloxacin500mg IV 500 MG/100 ML BAG IV SCH (22:00)
[2020-09-28 22:20] VITALS: O2SAT 97
[2020-09-29] MEDS: NA CHLORIDE 0.9% 1,000 ML IV SCH ×3 (00:13→08:13)
[2020-09-29] MEDS: HYDROCODONE/APAP 5/325 MG TAB PO PRN (03:54)
[2020-09-29 05:37] LABS: Absolute Lymphocytes (CBC) 1.3 K/uL (0.7-4.9); Basophils % 0.3 % (0-1.3); Hematocrit 37.4 % (36.0-45.0); Lymphocytes % 12.4 % (15.3-44.8); MPV 8.4 fL (7.6-11.3); RBC Red Blood Cell Count 3.81 M/uL (3.86-4.86)
[2020-09-29 05:46] LABS: BUN Blood Urea Nitrogen 3 mg/dL (7-18); Bicarbonate 26 mmol/L (21-32); Glucose Level 87 mg/dL (74-106); Magnesium 2.1 mg/dL (1.8-2.4); Sodium Level 137 mmol/L (136-145)
[2020-09-29] MEDS: TRAMADOL HCL 50 MG TAB PO PRN (09:30)
[2020-09-29] MEDS: ENOXAPARIN 40 MG/0.4 ML SQ SCH (09:31)
[2020-09-29 12:09] VITALS: BP 103/53; TEMP 97.6
--- NOTE | 2020-09-29 14:07 | P.DS ---
Admission Date: 09/27/20 Discharge Date: 09/29/20 Primary Care Provider: None Disposition: ROUTINE DISCHARGE Discharge Condition: GOOD Reason for Admission: Pyelonephritis Procedures: CXR (09/27): no acute intrathoracic process suspected CT abd/pelvis (09/27): IMPRESSION: Pelvic kidney is present with possible findings of acute pyelonephritis. The lower lung kauf[place] are clear. Cholecystectomy. Imaged portions of the liver and spleen show no suspicious findings on non- contrast imaging. The pancreas and adrenal glands are normal. No pathologic lymphadenopathy in the abdomen or pelvis. Pelvic left kidney is present which appears mildly edematous with surrounding fat stranding. No right-sided stone or hydronephrosis No bowel obstruction, free air, free fluid or abscess. Normal appendix noted.IUD is present. No significant bony abnormality. Problem List: Acute pyelonephritis of pelvic kidney. Brief History of Present Illness: 34yo female, H anxiety/depression, who presented to ED with abdominal pain, fever, and urinary symptoms since 09/25. She was found to have acute pyelonephritis, WBC: 14.1. Hospital Course: Patient was treated with broad spectrum antibiotics and IVF. Her diet was slowly advanced as tolerated. She improved throughout her hospitalization and was tolerating a regular diet on day of discharge - without nausea/vomiting and with minimal to no pain. She was reporting a very mild pressure like sensation when urinating which significantly improved compared to admission. Urine cultures were finalized and grew e.coli. Sensitivities were reviewed and patient was discharged with 10 days of levaquin. Vital Signs/Physical Exam: Temp Pulse Resp BP Pulse Ox 97.6 F 82 16 103/53 L 96 09/29/20 12:00 09/29/20 12:00 09/29/20 12:00 09/29/20 12:00 09/29/20 12:00 General: Alert, In no apparent distress, Oriented x3 HEENT: Sclerae nonicteric Respiratory: Clear to auscultation bilaterally, Normal air movement Cardiovascular: No edema, Regular rate/rhythm Gastrointestinal: Soft and benign, Non-distended, No tenderness Musculoskeletal: No tenderness Integumentary: No rashes Neurological: Normal speech, Normal affect Laboratory Data at Discharge: WBC 10.6 K/uL (4.3-10.9) D 09/29/20 05:03 Hgb 12.8 g/dL (12.0-15.0) 09/29/20 05:03 Hct 37.4 % (36.0-45.0) 09/29/20 05:03 Plt Count 229 K/uL (152-406) 09/29/20 05:03 Sodium 137 mmol/L (136-145) 09/29/20 05:03 Potassium 4.0 mmol/L (3.5-5.1) 09/29/20 05:03 BUN 3 mg/dL (7-18) L 09/29/20 05:03 Creatinine 0.66 mg/dL (0.55-1.3) 09/29/20 05:03 Glucose 87 mg/dL (74-106) 09/29/20 05:03 Magnesium 2.1 mg/dL (1.8-2.4) 09/29/20 05:03 Total Bilirubin 0.8 mg/dL (0.2-1.0) 09/28/20 03:27 AST 17 U/L (15-37) 09/28/20 03:27 ALT 18 U/L (12-78) 09/28/20 03:27 Alkaline Phosphatase 85 U/L (45-117) 09/28/20 03:27 Lipase 35 U/L (73-393) L 09/27/20 20:10 Home Medications: levoFLOXacin [Levaquin] 750 mg PO DAILY 10 Days #10 tab 09/29/20 New Medications: levoFLOXacin [Levaquin] 750 mg PO DAILY 10 Days #10 tab Patient Discharge Instructions: follow up with PCP within 1 week. levofloxacin (levaquin) 750mg daily for 10 days to treat your pyelonephritis. Diet: Regular (slowly advance diet as tolerated) Activity: Ad adelita Followup: NONE,NONE [Primary Care Provider] - Time spent managing pt's care (in minutes): 35
== END 2020-09-29 14:58 | disposition home or self-care (01) | DRG 690 ==
LOC: ER 19:28 → ERHOLD 21:37 → 2ND 23:55
PROVIDERS: ADMIT Hospitalist; ATTEND Hospitalist
DX: N10 Acute pyelonephritis (principal); F17.210 Nicotine dependence, cigarettes, uncomplicated; B96.20 Unspecified Escherichia coli [E. coli] as the cause of diseases classified elsewhere; Z56.0 Unemployment, unspecified; Z79.899 Other long term (current) drug therapy; Z20.828 Contact with and (suspected) exposure to other viral communicable diseases
CPT/HCPCS: 36415; 71045; 74176; 76377; 80048; 80053; 80076; 81003; 81015; 81025; 83605; 83690; 83735; 84132; 84145; 84484; 85025; 87040; 87077; 87086; 87088; 87186; 93005; 96365; 96366; 96375; 99285; J0696; J1650; J2270; J2405; J3475; J7030; U0003

== ENCOUNTER 2022-02-17 03:59 | Emergency (ER) | payer SELFPAY ==
--- OUTSIDE RECORDS SUMMARY | 2022-02-17 04:02 | XMS REPORT | Continuity of Care Document ---
:1985 Author Organization [facility] t Address [address] [place] [address] [address] [place] [address] Care Team Providers Name Role Phone ELIDA Attending Clinician Unavailable ELIDA Admitting Clinician Unavailable Problems This patient has no known problems. Allergies, Adverse Reactions, Alerts This patient has no known allergies or adverse reactions. Medications This patient has no known medications. Procedures This patient has no known procedures. Encounters Start End Encounter Admission Attending Care Care Encounter Source Date/Time Date/Time Type Type Clinicians Facility Department ID 2020-07-21 2020-07-21 Inpatient ELIDA [facility] [id number] [address] 00:00:00 00:00:00 PAUL[place] [address] Results This patient has no known results.
[2022-02-17] MEDS ORDERED: LORazepam 2 MG/ML VIAL ONE (04:30)
[2022-02-17] MEDS ORDERED: NA CHLORIDE 0.9% 1,000 ML ONE (04:30)
[2022-02-17 04:39] LABS: Absolute Lymphocytes (CBC) 1.6 K/uL (0.7-4.9); Hematocrit 40.6 % (36.0-45.0); MPV 7.7 fL (7.6-11.3); RBC Red Blood Cell Count 4.34 M/uL (3.86-4.86)
[2022-02-17 04:55] LABS: BUN Blood Urea Nitrogen 5 mg/dL (7-18); Bicarbonate 23 mmol/L (21-32); Glucose Level 111 mg/dL (74-106); Potassium 3.5 mmol/L (3.5-5.1); Sodium Level 141 mmol/L (136-145)
--- NOTE | 2022-02-17 05:27 | EDPHYS ---
Physician Documentation [facility] Name: Erika Romero Age: 36 yrs Sex: Female : 1985 Arrival Date: 02/17/2022 Time: 04:01 Bed 6 Private MD: ED Physician Denis Pond HPI: 02/17 05:00 This 36 yrs old Female presents to ER via EMS with complaints of anxiety, rn hyperventilating. 05:00 EMS called out for "panic attack", family states has done this multiple times and gets rn to the point where she passes out. Patient reports she is under a lot of stress and just lost her daughter or daughters, would not specify more than that. States she began to feel anxious, tingling all over, crying, and was drinking ETOH as well. No fever. . Onset: The symptoms/episode began/occurred today. Severity of symptoms: At their worst the symptoms were moderate in the emergency department the symptoms have improved. The patient has experienced similar episodes in the past. The patient has not recently seen a physician. Historical: - Allergies: 05:09 No Known Allergies; as6 - Home Meds: 05:09 None [Active]; as6 - PMHx: 05:09 Anxiety; Bipolar disorder; Depression; as6 - Immunization history:: Adult Immunizations unknown. - Social history:: Smoking status: unknown Patient uses alcohol. - Family history:: not pertinent. - Hospitalizations: : No recent hospitalization is reported. ROS: 05:00 Constitutional: Negative for fever, chills, and weight loss, Eyes: Negative for injury, rn pain, redness, and discharge, Neck: Negative for injury, pain, and swelling, Cardiovascular: Negative for chest pain, and edema, Respiratory: Negative for shortness of breath, cough, wheezing, and pleuritic chest pain, Abdomen/GI: Negative for abdominal pain, nausea, vomiting, diarrhea, and constipation, Back: Negative for injury and pain, MS/Extremity: Negative for injury and deformity, Skin: Negative for injury, rash, and discoloration, Neuro: Negative for headache, and seizure, Psych: Negative for suicide ideation, homicidal ideation, and hallucinations Exam: 05:00 Constitutional: This is a well developed, well nourished patient who is awake, rn hyperventilating and crying Head/Face: Normocephalic, atraumatic. Eyes: Periorbital areas with no swelling, redness, or edema. Neck: Trachea midline, no masses palpated. Supple, full range of motion without nuchal rigidity, or vertebral point tenderness. No Meningismus. Cardiovascular: Tachycardic, regular. Respiratory: + hyperventilating, able to slow her breathing Abdomen/GI: soft, non-tender Skin: Warm, dry MS/ Extremity: Pulses equal, no cyanosis. Neuro: Awake and alert, GCS 15, moves all 4 extremities, + tingling sensation RUE. 05:31 ECG was reviewed by the Attending Physician. rn Vital Signs: 05:32 BP 105 / 70; Pulse 97; Resp 18; Temp 97.3(TE); Pulse Ox 98% on R/A; Weight 74.84 kg; as6 MDM: 04:02 Patient medically screened. rn 05:25 Differential Diagnosis ETOH intoxication, anxiety, panic attack, hyperventilation. Data rn reviewed: vital signs, nurses notes, lab test result(s), EKG, and as a result, I will discharge patient. Counseling: I had a detailed discussion with the patient and/or guardian regarding: the historical points, exam findings, and any diagnostic results supporting the discharge/admit diagnosis, lab results, radiology results, the need for outpatient follow up, to return to the emergency department if symptoms worsen or persist or if there are any questions or concerns that arise at home. Response to treatment: the patient's symptoms have markedly improved after treatment, sleeping comfortably, awakens and ambulatory to bathroom. Calling people on hospital phone, using both arms without difficulty. , and as a result, I will discharge patient. Special discussion: I discussed with the patient/guardian in detail that at this point there is no indication for admission to the hospital. It is understood, however, that if the symptoms persist or worsen the patient needs to return immediately for re-evaluation. ED course: Pt with ETOH intoxication and hyperventilation, improved with fluids and ativan. Will have her call for ride and dc home in care of family member. . 02/17 04:03 Order name: ETOH Level; Complete Time: 05:24 rn 02/17 04:03 Order name: CBC with Diff; Complete Time: 05:06 rn 02/17 04:03 Order name: EKG; Complete Time: 04:04 rn 02/17 04:03 Order name: Basic Metabolic Panel; Complete Time: 05:06 rn 02/17 04:03 Order name: IV Start; Complete Time: 04:15 rn 02/17 04:03 Order name: EKG - Nurse/Tech; Complete Time: 05:31 rn 02/17 04:03 Order name: Cardiac monitoring; Complete Time: 05:32 rn 02/17 04:03 Order name: O2 Sat Monitoring; Complete Time: 05:31 rn EC:31 Rate is 97 beats/min. Rhythm is regular. QRS [place] is Normal. [place] interval is normal. QRS rn interval is normal. No Q waves. T waves are Normal. No ST changes noted. Clinical impression: Normal ECG. Interpreted by me. Reviewed by me. Administered Medications: : Drug: Ativan (LORazepam) 1 mg Route: IVP; Site: right antecubital; as6 06:15 Follow up: Response: No adverse reaction 04:29 Drug: NS 0.9% 1000 ml Route: IV; Rate: 1000 ml; Site: right antecubital; as6 06:15 Follow up: Response: No adverse reaction; IV Status: Completed infusion; IV Intake: as6 1000ml Disposition Summary: 02/17/22 05:27 Discharge Ordered Location: Home rn Problem: new rn Symptoms: have improved rn Condition: Stable rn Diagnosis - Anxiety disorder, unspecified rn - Hyperventilation rn - Alcohol use, unspecified with intoxication, uncomplicated rn Followup: rn - With: Private Physician - When: As needed - Reason: Recheck today's complaints, Re-evaluation by your physician Discharge Instructions: - Discharge Summary Sheet rn - Alcohol Intoxication rn - Panic Attack rn - Hyperventilation rn - Generalized Anxiety Disorder, Adult rn Forms: - Medication Reconciliation Form rn - Thank You Letter rn - Antibiotic fashion intern - Prescription Opioid Use rn - Work release form ds4 Signatures: Dispatcher [employer] Denis Mendoza MD MD rn Slawson, Ashby, RN RN as6
--- NOTE | 2022-02-17 05:27 | ER ---
Nurse's Notes [facility] Name: Erika Romero Age: 36 yrs Sex: Female : 1985 Arrival Date: 02/17/2022 Time: 04:01 Bed 6 Private MD: Diagnosis: Anxiety disorder, unspecified;Hyperventilation;Alcohol use, unspecified with intoxication, uncomplicated Presentation: 02/17 04:03 Chief complaint: EMS states: called out for anxiety. on seen pt is crying, moaning, as6 inconsolable. Coronavirus screen: At this time, the client does not indicate any symptoms associated with coronavirus-19. Ebola Screen: No symptoms or risks identified at this time. 04:03 Method Of Arrival: EMS: [facility] as6 04:03 Acuity: CESILIA 3 as6 04:03 Initial Sepsis Screen: Does the patient meet any 2 criteria? No. Patient's initial as6 sepsis screen is negative. Does the patient have a suspected source of infection? No. Patient's initial sepsis screen is negative. Risk Assessment: Do you want to hurt yourself or someone else? Unable to obtain. 04:03 Onset of symptoms was February 17, 2022. as6 Historical: - Allergies: 05:09 No Known Allergies; as6 - Home Meds: 05:09 None [Active]; as6 - PMHx: 05:09 Anxiety; Bipolar disorder; Depression; as6 - Immunization history:: Adult Immunizations unknown. - Social history:: Smoking status: unknown Patient uses alcohol. - Family history:: not pertinent. - Hospitalizations: : No recent hospitalization is reported. Screenin:32 Abuse screen: Denies threats or abuse. Denies injuries from another. Nutritional as6 screening: No deficits noted. Tuberculosis screening: No symptoms or risk factors identified. Fall Risk None identified. Assessment: 04:10 General: Appears in no apparent distress. Behavior is anxious, crying, restless. as6 04:10 Pain: Complains of pain in right arm. Neuro: Reports numbness in right arm. as6 Cardiovascular: Capillary refill < 3 seconds Patient's skin is warm and dry. Respiratory: Airway is patent Trachea midline Respiratory effort is even, unlabored, Respiratory pattern is hyperventilation. 05:07 General: pt removing vital signs equipment, verbalizing wanting to leave. as6 05:30 General: witnessed pt moving right arm to make phone calls . as6 Vital Signs: 05:32 BP 105 / 70; Pulse 97; Resp 18; Temp 97.3(TE); Pulse Ox 98% on R/A; Weight 74.84 kg; as6 ED Course: 04:01 Patient arrived in ED. as6 04:02 Denis Pond MD is Attending Physician. rn 04:05 Triage completed. as6 04:06 Francisco Javier Vasquez, FANI is Primary Nurse. as6 04:10 Inserted saline lock: 20 gauge in right antecubital area, using aseptic technique. as6 Blood collected. 04:15 ETOH Level Sent. as6 04:15 Basic Metabolic Panel Sent. as6 04:15 CBC with Diff Sent. as6 05:32 Bed in low position. Call light in reach. Side rails up X2. Pulse ox on. NIBP on. as6 05:33 Arm band placed on. as6 06:15 No provider procedures requiring assistance completed. as6 06:45 IV discontinued, intact, bleeding controlled, No redness/swelling at site. Pressure as6 dressing applied. Administered Medications: 04:29 Drug: Ativan (LORazepam) 1 mg Route: IVP; Site: right antecubital; as6 06:15 Follow up: Response: No adverse reaction as6 04:29 Drug: NS 0.9% 1000 ml Route: IV; Rate: 1000 ml; Site: right antecubital; as6 06:15 Follow up: Response: No adverse reaction; IV Status: Completed infusion; IV Intake: as6 1000ml Intake: 06:15 IV: 1000ml; Total: 1000ml. as6 Outcome: 05:27 Discharge ordered by . rn 06:45 Discharged to home ambulatory. as6 06:45 Condition: stable 06:45 Discharge instructions given to patient, Instructed on discharge instructions, follow up and referral plans. Demonstrated understanding of instructions, follow-up care. 06:45 Patient left the ED. as6 Signatures: Denis Pond MD MD rn Slawson, Ashby, RN RN as6
[2022-02-17 06:55] VITALS: BP 105/70; TEMP 97.3; O2SAT 98
== END 2022-02-17 06:45 | disposition home or self-care (01) ==
LOC: ER 03:59
DX: R06.4 Hyperventilation (principal); F10.929 Alcohol use, unspecified with intoxication, unspecified; F31.9 Bipolar disorder, unspecified
CPT/HCPCS: 36415; 80048; 80320; 85025; 93005; 96361; 96374; 99284; J7030

== ENCOUNTER 2022-03-11 06:17 | Emergency (ER) | payer SELFPAY ==
--- OUTSIDE RECORDS SUMMARY | 2022-03-11 06:19 | XMS REPORT | Continuity of Care Document ---
:1985 Author Organization [facility] t Address [address] [place] [address] [address]. [address] [place] [address] Care Team Providers Name Role Phone ELIDA [...] Facility Department ID 2020-07-21 2020-07-21 Inpatient ELIDA [facility] 023 [id number] [place] 00:00:00 00:00:00 [place] [address] Results This patient has no known results.
[2022-03-11 06:42] LABS: Urine Blood Negative (Negative); Urine Glucose Negative (Negative); Urine Protein Negative (Negative); Urine Specific Gravity <=1.005 (1.005-1.030); Urine pH 5.5 (5.0-7.0)
[2022-03-11] MEDS ORDERED: NA CHLORIDE 0.9% 1,000 ML ONE ×2 (06:55→08:20)
[2022-03-11 07:05] LABS: Barbiturates NEGATIVE (NEGATIVE); Benzodiazepines NEGATIVE (NEGATIVE); Cocaine NEGATIVE (NEGATIVE); METHAMPHETAM NEGATIVE (NEGATIVE); Methadone NEGATIVE (NEGATIVE); Opiates NEGATIVE (NEGATIVE); Phencyclidine NEGATIVE (NEGATIVE); THC Cannibis NEGATIVE (NEGATIVE)
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
[2022-03-11 07:48] VITALS: TEMP 98.7; O2SAT 97
[2022-03-11 08:18] LABS: Absolute Lymphocytes (CBC) 2.5 K/uL (0.7-4.9); Hematocrit 41.1 % (36.0-45.0); Lymphocytes % 25.3 % (15.3-44.8); MPV 7.3 fL (7.6-11.3); RBC Red Blood Cell Count 4.41 M/uL (3.86-4.86)
[2022-03-11 08:25] LABS: Protime INR 1.03
[2022-03-11 08:37] LABS: ALT/SGPT 32 U/L (12-78); AST/SGOT 17 U/L (15-37); Alkaline Phosphatase 67 U/L (45-117); BUN Blood Urea Nitrogen 6 mg/dL (7-18); Bicarbonate 22 mmol/L (21-32); Bilirubin Direct 0.1 mg/dL (0-0.2); Bilirubin Total 0.2 mg/dL (0.2-1.0); Glucose Level 88 mg/dL (74-106); Potassium 3.6 mmol/L (3.5-5.1); Protein, Total 8.1 g/dL (6.4-8.2); Sodium Level 141 mmol/L (136-145)
[2022-03-11] MEDS ORDERED: ONDANSETRON 4 MG/2 ML VIAL ONE (08:46)
[2022-03-11] MEDS ORDERED: KETOROLAC 30 MG/ML INJ ONE (08:46)
[2022-03-11] MEDS ORDERED: MORPHINE 2 MG/ML SYR ONE (08:46)
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
[2022-03-11 09:54] VITALS: BP 99/59
== END 2022-03-11 09:46 | disposition home or self-care (01) ==
LOC: ER 06:17
DX: S00.83XA Contusion of other part of head, initial encounter (principal); M54.50 Low back pain, unspecified; Y04.8XXA Assault by other bodily force, initial encounter; F31.9 Bipolar disorder, unspecified
CPT/HCPCS: 36415; 70450; 70486; 71260; 72125; 74177; 76377; 80048; 80076; 80307; 80320; 81003; 84703; 85025; 85610; 85730; 86850; 86900; 86901; 96361; 96374; 96375; 99284; J2270; J2405; J7030; Q9967

== ENCOUNTER 2022-09-17 11:23 | Emergency (ER) | payer SELFPAY ==
--- OUTSIDE RECORDS SUMMARY | 2022-09-17 11:27 | XMS REPORT | Continuity of Care Document ---
:1985 Author Organization [facility] t Address [address] [place] [address] Care Team Providers Name Role Phone Asked, No Pcp Primary Care Physician Unavailable PAULINA MARRERO Attending Clinician Unavailable PAULINA MARRERO Admitting Clinician Unavailable Problems Condition Condition Condition Status Onset Resolution Last Treating Co mments Source Name Details Category Date Date Treatment Clinician Date Panic Panic Disease Active Methodi disorder disorder 07-21 00:00: Hosp[facility] 00 l Allergies, Adverse Reactions, Alerts This patient has no known allergies or adverse reactions. Social History Social Habit Start Date Stop Date Quantity Comments Source History of Cigarette Smoker [facility] Alcohol intake 2020-07-21 2020-07-21 Current drinker [facility] 00:00:00 00:00:00 of alcohol Hospital (finding) Tobacco use and 2020-07-21 2020-07-21 Smokeless tobacco [facility] 00:[facility]00:00 non-user Hospital Sex Assigned At [birth year] [facility] 00:00:00 00:00:00 Hospital Smoking Status Start Date Stop Date Source Occasional tobacco smoker 2020-07-21 00:00:00 [facility] Medications Ordered Filled Start Stop Current Ordering Indication Dosage Frequency Signature Comments Components Source Medication Medication Date Date Medication? Clinician (SIG) Name Name Dose No Unknown 06-12 00:00: 00 USE 2021-0 No 20 DIRECTED 06-05 00:00: 00 USE No 20 DIRECTED 06-05 00:00: 00 Dose No Unknown 05-28 00:00: 00 Dose 2022-0 No Unknown 7-25 00:00: 00 Dose 2022-0 No Unknown 7-25 00:00: 00 TAKE 1 2022-0 No TABLET BY 6-24 MOUTH TWICE 00:00: A DAY 00 TAKE 1 2022-0 No TABLET BY 6-24 MOUTH TWICE 00:: A DAY 00 TAKE 1 2022-0 No TABLET BY 6-24 MOUTH TWICE 00:00: A DAY 00 TAKE 1 2022-0 No TABLET BY 6-10 MOUTH TWICE 00:00: A DAY 00 Dose 2022-0 No Unknown 6-10 00:00: 00 Dose 2022-0 No Unknown 6-10 00:00: 00 TAKE 1 2-0 No TABLET BY 6-10 MOUTH TWICE 00:: A DAY 00 TAKE 1 2-0 No TABLET BY 6-10 MOUTH TWICE 00:: A DAY 00 TAKE 1 2022-0 No TABLET BY 6-10 MOUTH TWICE 00:00: A DAY 00 TAKE 1 2022-0 No TABLET BY 6-10 MOUTH TWICE 00:: A DAY 00 TAKE 1 2022-0 No TABLET BY 6-10 MOUTH TWICE 00:00: A DAY 00 TAKE 1 2022-0 No TABLET BY 6-10 MOUTH TWICE 00:00: A DAY 00 Dose 2022-0 No Unknown 6-10 00:00: 00 Dose 2022-0 No Unknown 6-10 00:00: 00 Dose 2022-0 No Unknown 6-10 00:00: 00 TAKE 1 2-0 No TABLET BY 6-10 MOUTH TWICE 00:00: A DAY 00 Dose 2022-0 No Unknown 6-10 00:00: 00 Dose 2022-0 No Unknown 6-10 00:00: 00 Dose 2022-0 No Unknown 6-10 00:00: 00 Dose 2022-0 No Unknown 6-10 00:00: 00 Dose 2022-0 No Unknown 6-10 00:00: 00 Dose 2022-0 No Unknown 3-14 00:00: 00 Dose 2022-0 No Unknown 3-14 00:00: 00 Dose 2022-0 No Unknown 3-14 00:00: 00 Dose 2022-0 No Unknown 3-14 00:00: 00 Dose 2022-0 No Unknown 3-14 00:00: 00 Dose 2022-0 No Unknown 3-14 00:00: 00 Dose 2022-0 No Unknown 3-14 00:00: 00 Dose 2022-0 No Unknown 3-14 00:00: 00 Dose 2022-0 No Unknown 3-14 00:00: 00 Dose 2022-0 No Unknown 3-14 00:00: 00 Dose 2022-0 No Unknown 3-14 00:00: 00 Dose 2022-0 No Unknown 3-14 00:00: 00 Dose 2022-0 No Unknown 3-14 00:00: 00 Dose 2022-0 No Unknown 3-14 00:00: 00 Dose 2022-0 No Unknown 3-14 00:00: 00 Dose 2022-0 No Unknown 3-14 00:00: 00 Dose 2022-0 No Unknown 3-14 00:00: 00 Dose 2022-0 No Unknown 3-14 00:00: 00 Dose 2022-0 No Unknown 3-14 00:00: 00 Dose 2022-0 No Unknown 3-14 00:00: 00 Dose 2022-0 No Unknown 3-14 00:00: 00 Dose 1-1 No Unknown 1-30 00:00: 00 Dose 1-1 No Unknown 1-30 00:00: 00 Dose 1-1 No Unknown 1-30 00:00: 00 Vital Signs Vital Name Observation Time Observation Value Comments Source BP Systolic 2022-06-12 16:05:00 117 mm[Hg] BP Diastolic 2022-06-12 16:05:00 73 mm[Hg] Weight Measured 2022-06-12 16:05:00 155.60 pounds Height Measured 2022-06-12 16:05:00 59.45 inches Body Temperature 2022-06-12 16:05:00 98.10 degrees Heart Rate 2022-06-12 16:05:00 70.00 /min Respiratory Rate 2022-06-12 16:05:00 18.00 /min BP Diastolic 2022-06-05 16:34:00 73 mm[Hg] Weight Measured 2022-06-05 16:34:00 Height Measured 2022-06-05 16:34:00 59.45 inches Body Temperature 2022-06-05 16:34:00 98.20 degrees Heart Rate 2022-06-05 16:34:00 73.00 /min Respiratory Rate 2022-06-05 16:34:00 18.00 /min BP Systolic 2022-06-05 16:34:00 111 mm[Hg] BP Systolic 2022-05-28 17:23:00 110 mm[Hg] BP Diastolic 2022-05-28 17:23:00 49 mm[Hg] Weight Measured 2022-05-28 17:23:00 150.40 pounds Height Measured 2022-05-28 17:23:00 59.45 inches Body Temperature 2022-05-28 17:23:00 98.00 degrees Heart Rate 2022-05-28 17:23:00 83.00 /min Respiratory Rate 2022-05-28 17:23:00 16.00 /min BP Systolic 2022-01-25 13:41:00 131 mm[Hg] BP Diastolic 2022-01-25 13:41:00 85 mm[Hg] Weight Measured 2022-01-25 13:41:00 152.40 pounds Height Measured 2022-01-25 13:41:00 59.45 inches Body Temperature 2022-01-25 13:41:00 98.30 degrees Heart Rate 2022-01-25 13:41:00 70.00 /min Respiratory Rate 2022-01-25 13:41:00 16.00 /min BP Systolic 2022-01-15 10:16:00 110 mm[Hg] BP Diastolic 2022-01-15 10:16:00 74 mm[Hg] Weight Measured 2022-01-15 10:16:00 150.00 pounds Height Measured 2022-01-15 10:16:00 59.45 inches Body Temperature 2022-01-15 10:16:00 98.40 degrees Heart Rate 2022-01-15 10:16:00 58.00 /min Respiratory Rate 2022-01-15 10:16:00 16.00 /min BP Systolic 2021-10-03 08:41:00 112 mm[Hg] BP Diastolic 2021-10-03 08:41:00 77 mm[Hg] Weight Measured 2021-10-03 08:41:00 158.80 pounds Height Measured 2021-10-03 08:41:00 59.45 inches Body Temperature 2021-10-03 08:41:00 98.30 degrees Heart Rate 2021-10-03 08:41:00 89.00 /min Respiratory Rate 2021-10-03 08:41:00 17.00 /min BP Systolic 2021-10-02 15:31:00 106 mm[Hg] BP Diastolic 2021-10-02 15:31:00 75 mm[Hg] Weight Measured 2021-10-02 15:31:00 161.80 pounds Height Measured 2021-10-02 15:31:00 59.45 inches Body Temperature 2021-10-02 15:31:00 98.60 degrees Heart Rate 2021-10-02 15:31:00 74.00 /min Respiratory Rate 2021-10-02 15:31:00 Procedures This patient has no known procedures. Plan of Care Planned Activity Planned Date Details Comments Source Goal Plan of Care Note [code = 38671-5] Goal Plan of Care Note [code = 97040-8] Goal Plan of Care Note [code = 31619-1] Goal Plan of Care Note [code = 48507-1] Goal Plan of Care Note [code = 67040-6] Goal Plan of Care Note [code = 92132-7] Goal Plan of Care Note [code = 53403-8] Goal Plan of Care Note [code = 28889-9] Goal Plan of Care Note [code = 60720-2] Goal Plan of Care Note [code = 23840-1] Goal Plan of Care Note [code = 47883-3] Goal Plan of Care Note [code = 58623-9] Goal Plan of Care Note [code = 73870-3] Goal Plan of Care Note [code = 90219-8] Goal Plan of Care Note [code = 59408-7] Goal Plan of Care Note [code = 97424-9] Goal Plan of Care Note [code = 83614-7] Goal Plan of Care Note [code = 57974-0] Goal Plan of Care Note [code = 64360-0] Goal Plan of Care Note [code = 51704-5] Goal Plan of Care Note [code = 47045-4] Goal Plan of Care Note [code = 69957-9] Goal Plan of Care Note [code = 23299-0] Goal Plan of Care Note [code = 14346-0] Goal Plan of Care Note [code = 94657-6] Goal Plan of Care Note [code = 20085-0] Goal Plan of Care Note [code = 64842-7] Goal Plan of Care Note [code = 21940-2] Goal Plan of Care Note [code = 55283-2] Goal Plan of Care Note [code = 11044-0] Goal Plan of Care Note [code = 33136-4] Goal Plan of Care Note [code = 71506-8] Goal Plan of Care Note [code = 99410-9] Goal Plan of Care Note [code = 71047-7] Goal Plan of Care Note [code = 21083-2] Goal Plan of Care Note [code = 95065-8] Goal Plan of Care Note [code = 63808-1] Goal Plan of Care Note [code = 81015-6] Goal Plan of Care Note [code = 84266-0] Goal Plan of Care Note [code = 10882-4] Goal Plan of Care Note [code = 53626-6] Goal Plan of Care Note [code = 74916-8] Goal Plan of Care Note [code = 97608-1] Goal Plan of Care Note [code = 58810-9] Goal Plan of Care Note [code = 35130-2] Goal Plan of Care Note [code = 76458-1] Goal Plan of Care Note [code = 00968-3] Goal Plan of Care Note [code = 05872-2] Encounters Start End Encounter Admission Attending Care Care Encounter Source Date/Time Date/Time Type Type Clinicians Facility Department ID 2022-09-11 2022-09-11 Outpatient [facility] [id number] 09:59:15 09:59:15 [id number] F Eduard 2022-09-10 2022-09-10 Outpatient [facility] [id number] 17:02:50 17:02:50 [id number] F Eduard 2022-09-10 2022-09-10 Outpatient [id number] 00:00:00 00:00:00 Visit [id number]-a -[id number]-hpu [id number] 2022-06-05 2022-06-05 Outpatient [id number] 00:00:00 00:00:00 Visit 2cba-46cc cba-46cc-8 -[id number] [id number] [id number] 2022-05-28 Outpatient [id number]- [id number] [id number]-2 00:00:00 00:00:00 Visit 02t8-6eyx 1b2-8bsx-1 -4s0e-5l5 s5f-0p4n56 [id number] [id number] 2020-07-21 2020-07-21 [facility]patient [facility] 023 [id number] [place] 00:00:00 00:00:00 PAULINA [address] Results Test Description Test Time Test Comments Results Result Comments Source ACUTE HEPATITIS PROFILE 2021-10-04 00:00:00 Test Item Value Reference Range Interpretation Comme nts HEPATITIS A IgM (test code = 54787) NON-REACTIVE HEPATITIS B CORE IgM (test code = 4644) NON-REACTIVE HEPATITIS B SURF AG (test code = 2739) NON-REACTIVE HEPATITIS C ANTIBODY (test code = 4675) NON-REACTIVE INTERPRETATION HEPATITIS A: (test code = 2552) (NOTE) INTERPRETATION HEPATITIS B: (test code = 87623) (NOTE) INTERPRETATION HEPATITIS C: (test code = 70350) (NOTE) PAP TEST, THINPREP, [id number] 00:00:00 Test Item Value Reference Range Interpretation Comments SOURCE: (test code = Endocervical 8001) SLIDES: (test code = 1 8011) LMP: (test code = 8021) 2015 SPECIMEN ADEQUACY: (test (NOTE) code = 38168) INTERPRETATION: (test NILM/NO EPITH. code = 18544) ABNORMALITY;SEE BELOW OTHER COMMENTS: (test (NOTE) code = 8081) VESSEL MANAGER: (test MADISYN Martin(ASCP) code = 8101) [place] PATHOLOGIST Carolin Yuen INTERPRETATION BY: (test code = 8122) LOCATION: (test code = (NOTE) 52716) CPT: (test code = 8140) (NOTE) GC AND CHLAMYDIA, AMPLIFIED, [id number] 00:00:00 Test Item Value Reference Range Interpretation Comments GONORRHEA, NAAT (test code = 94895) NEGATIVE CHLAMYDIA, NAAT (test code = 10128) NEGATIVE HIV AB/AG COMBO RFLX [id number] 00:00:00 Test Item Value Reference Range Interpretation Comments HIV 1/2 4TH GEN, RFLX CONF (test NON-REACTIVE code = 3514) ACUTE HEPATITIS [id number] 00:00:00 Test Item Value Reference Range Interpretation Comments HEPATITIS A IgM (test code = NON-REACTIVE 47993) HEPATITIS B CORE IgM (test code NON-REACTIVE = 4644) HEPATITIS B SURF AG (test code = NON-REACTIVE 6909) HEPATITIS C ANTIBODY (test code NON-REACTIVE = 4686) INTERPRETATION HEPATITIS A: (NOTE) (test code = 2552) INTERPRETATION HEPATITIS B: (NOTE) (test code = 03954) INTERPRETATION HEPATITIS C: (NOTE) (test code = 59964) PAP TEST, THINPREP, [id number] 00:00:00 Test Item Value Reference Range Interpretation Comments SOURCE: (test code = Endocervical 8001) SLIDES: (test code = 1 8011) LMP: (test code = 8021) 2015 SPECIMEN ADEQUACY: (test (NOTE) code = 88254) INTERPRETATION: (test NILM/NO EPITH. code = 77581) ABNORMALITY;SEE BELOW OTHER COMMENTS: (test (NOTE) code = 8081) VESSEL MANAGER: (test MADISYN Martin(ASCP) code = 8101) [facility] PATHOLOGIST Carolin Yuen INTERPRETATION BY: (test code = 8122) LOCATION: (test code = (NOTE) 27648) CPT: (test code = 8140) (NOTE) GC AND CHLAMYDIA, AMPLIFIED, [id number] 00:00:00 Test Item Value Reference Range Interpretation Comments GONORRHEA, NAAT (test code = 05514) NEGATIVE CHLAMYDIA, NAAT (test code = 81913) NEGATIVE HIV AB/AG COMBO RFLX [id number] 00:00:00 Test Item Value Reference Range Interpretation Comments HIV 1/2 4TH GEN, RFLX CONF (test NON-REACTIVE code = 3514) HIV AB/AG COMBO RFLX [id number] 00:00:00 Test Item Value Reference Range Interpretation Comments HIV 1/2 4TH GEN, RFLX CONF (test NON-REACTIVE code = 3514) PAP TEST, THINPREP, [id number] 00:00:00 Test Item Value Reference Range Interpretation Comments SOURCE: (test code = Endocervical 8001) SLIDES: (test code = 1 8011) LMP: (test code = 8021) 2016 SPECIMEN ADEQUACY: (test (NOTE) code = 38233) INTERPRETATION: (test NILM/NO EPITH. code = 54955) ABNORMALITY;SEE BELOW OTHER COMMENTS: (test (NOTE) code = 8081) VESSEL MANAGER: (test MADISYN Martin(ASCP) code = 8101) [facility] PATHOLOGIST Carolin Yuen INTERPRETATION BY: (test code = 8122) LOCATION: (test code = (NOTE) 53803) CPT: (test code = 8140) (NOTE) ACUTE HEPATITIS [id number] 00:00:00 Test Item Value Reference Range Interpretation Comments HEPATITIS A IgM (test code = NON-REACTIVE 12548) HEPATITIS B CORE IgM (test code NON-REACTIVE = 4644) HEPATITIS B SURF AG (test code = NON-REACTIVE 2739) HEPATITIS C ANTIBODY (test code NON-REACTIVE = 4675) INTERPRETATION HEPATITIS A: (NOTE) (test code = 2552) INTERPRETATION HEPATITIS B: (NOTE) (test code = 73688) INTERPRETATION HEPATITIS C: (NOTE) (test code = 22567) PAP TEST, THINPREP, [id number] 00:00:00 Test Item Value Reference Range Interpretation Comments SOURCE: (test code = Endocervical 8001) SLIDES: (test code = 1 8011) LMP: (test code = 8021) 2016 SPECIMEN ADEQUACY: (test (NOTE) code = 53968) INTERPRETATION: (test NILM/NO EPITH. code = 80513) ABNORMALITY;SEE BELOW OTHER COMMENTS: (test (NOTE) code = 8081) VESSEL MANAGER: (test MADISYN Martin(ASCP) code = 8101) [facility] PATHOLOGIST Carolin Yuen INTERPRETATION BY: (test code = 8122) LOCATION: (test code = (NOTE) 51928) CPT: (test code = 8140) (NOTE) ACUTE HEPATITIS [id number] 00:00:00 Test Item Value Reference Range Interpretation Comments HEPATITIS A IgM (test code = NON-REACTIVE 15553) HEPATITIS B CORE IgM (test code NON-REACTIVE = 4644) HEPATITIS B SURF AG (test code = NON-REACTIVE 2739) HEPATITIS C ANTIBODY (test code NON-REACTIVE = 4675) INTERPRETATION HEPATITIS A: (NOTE) (test code = 2552) INTERPRETATION HEPATITIS B: (NOTE) (test code = 60121) INTERPRETATION HEPATITIS C: (NOTE) (test code = 75914) GC AND CHLAMYDIA, AMPLIFIED, [id number] 00:00:00 Test Item Value Reference Range Interpretation Comments GONORRHEA, NAAT (test code = 16137) NEGATIVE CHLAMYDIA, NAAT (test code = 89746) NEGATIVE GC AND CHLAMYDIA, AMPLIFIED, [id number] 00:00:00 Test Item Value Reference Range Interpretation Comments GONORRHEA, NAAT (test code = 19504) NEGATIVE CHLAMYDIA, NAAT (test code = 62062) NEGATIVE HIV AB/AG COMBO RFLX [id number] 00:00:00 Test Item Value Reference Range Interpretation Comments HIV 1/2 4TH GEN, RFLX CONF (test NON-REACTIVE code = 3514) HPV HIGH RISK WITH GENOTYPE, [id number] 00:00:00 Test Item Value Reference Range Interpretation Comments HPV HIGH RISK INTERP (test code = POSITIVE 19175) HPV 16 (test code = 84724) NEGATIVE HPV 18 (test code = 44512) NEGATIVE HPV, HR, OTHER GENOTYPES (test code POSITIVE = 18188) VAGINAL PATHOGENS DNA [id number] 00:00:00 Test Item Value Reference Range Interpretation Comments MADISYN SPECIES (test code = ) NEGATIVE G. VAGINALIS (test code = 14832) POSITIVE T. VAGINALIS (test code = 92057) POSITIVE HPV HIGH RISK WITH GENOTYPE, [id number] 00:00:00 Test Item Value Reference Range Interpretation Comments HPV HIGH RISK INTERP (test code = POSITIVE 07426) HPV 16 (test code = 50918) NEGATIVE HPV 18 (test code = 77766) NEGATIVE HPV, HR, OTHER GENOTYPES (test code POSITIVE = 97340) VAGINAL PATHOGENS DNA [id number] 00:00:00 Test Item Value Reference Range Interpretation Comments MADISYN SPECIES (test code = ) NEGATIVE G. VAGINALIS (test code = 01162) POSITIVE T. VAGINALIS (test code = 76761) POSITIVE VAGINAL PATHOGENS DNA [id number] 00:00:00 Test Item Value Reference Range Interpretation Comments MADISYN SPECIES (test code = ) NEGATIVE G. VAGINALIS (test code = ) POSITIVE T. VAGINALIS (test code = ) POSITIVE HPV HIGH RISK WITH GENOTYPE, [id number] 00:00:00 Test Item Value Reference Range Interpretation Comments HPV HIGH RISK INTERP (test code = POSITIVE 24748) HPV 16 (test code = 28644) NEGATIVE HPV 18 (test code = 10424) NEGATIVE HPV, HR, OTHER GENOTYPES (test code POSITIVE = 24205) HPV HIGH RISK WITH GENOTYPE, [id number] 00:00:00 Test Item Value Reference Range Interpretation Comments HPV HIGH RISK INTERP (test code = POSITIVE 25340) HPV 16 (test code = 67549) NEGATIVE HPV 18 (test code = 51581) NEGATIVE HPV, HR, OTHER GENOTYPES (test code POSITIVE = 78859) VAGINAL PATHOGENS DNA [id number] 00:00:00 Test Item Value Reference Range Interpretation Comments MADISYN SPECIES (test code = ) NEGATIVE G. VAGINALIS (test code = ) POSITIVE T. VAGINALIS (test code = ) POSITIVE
[2022-09-17 12:12] LABS: Urine Blood Negative (Negative); Urine Glucose Negative (Negative); Urine Protein Trace (Negative); Urine Specific Gravity 1.025 (1.005-1.030)
[2022-09-17 12:28] LABS: Urine Specific Gravity/Preg 1.025 (1.005-1.030)
[2022-09-17] MEDS ORDERED: MORPHINE 4 MG/ML SYR ONE (12:30)
[2022-09-17] MEDS ORDERED: ONDANSETRON 4 MG/2 ML VIAL ONE (12:30)
[2022-09-17] MEDS ORDERED: FAMOTIDINE 20 MG/2 ML VIAL IV ONE (12:30)
[2022-09-17] MEDS ORDERED: NA CHLORIDE 0.9% 1,000 ML ONE (12:30)
[2022-09-17 12:52] LABS: Absolute Lymphocytes (CBC) 1.8 K/uL (0.7-4.9); Hematocrit 44.2 % (36.0-45.0); Lymphocytes % 22.3 % (15.3-44.8); MCV 94.2 fL (80-100); MPV 7.7 fL (7.6-11.3); RBC Red Blood Cell Count 4.69 M/uL (3.86-4.86)
[2022-09-17 13:10] LABS: Albumin 3.6 g/dL (3.4-5.0); Bilirubin Total 0.6 mg/dL (0.2-1.0); Potassium 3.7 mmol/L (3.5-5.1); Protein, Total 7.5 g/dL (6.4-8.2)
[2022-09-17] MEDS ORDERED: KETOROLAC 30 MG/ML INJ ONE (13:33)
--- NOTE | 2022-09-17 13:55 | RAD REPORT ---
EXAM DESCRIPTION: CTAbdomen Pelvis W Contrast - 09/17/2022 1:45 pm CLINICAL HISTORY: Abdominal pain. right flank pain COMPARISON: No comparisons TECHNIQUE: Biphasic CT imaging of the abdomen and pelvis was performed with 100 ml non-ionic IV cont rast. All CT scans are performed using dose optimization technique as appropriate and may include automated exposure control or mA/KV adjustment according to patient size. FINDINGS: The lung bases are clear. Cholecystectomy clips. The liver, spleen, pancreas, adrenal glands and right kidney are within normal limits. Pelvic left ki dney noted without hydronephrosis. No bowel obstruction, free air, free fluid or abscess. The appendix is normal. No evidence of signi ficant lymphadenopathy. No suspicious bony findings. IMPRESSION: No acute intra-abdominal or pelvic finding.
--- NOTE | 2022-09-17 14:57 | EDPHYS ---
Physician Documentation [facility] Name: Erika Romero Age: 36 yrs Sex: Female : 1985 Arrival Date: 09/17/2022 Time: 11:27 Bed 27 Private MD: ED Physician Denis Pond HPI: 09/17 11:48 This 36 yrs old Female presents to ER via Ambulatory with complaints of Flank jmm Pain. 11:48 The patient complains of pain in the right flank. The pain radiates to the right flank. jmm Onset: The symptoms/episode began/occurred gradually, 3 day(s) ago. Modifying factors: The symptoms are alleviated by nothing. the symptoms are aggravated by nothing. Associated signs and symptoms:. The patient has experienced a previous episode. Patient states having a similar episode 3 months ago after developing acute cholecystitis . THEATRICAL RIGGER: 11:45 LMP N/A - control method ld1 Historical: - Allergies: 11:45 No Known Allergies; ld1 - PMHx: 11:45 Anxiety; Bipolar disorder; Depression; ld1 - PSHx: 11:45 section; Cholecystectomy; ld1 - Immunization history:: Adult Immunizations up to date, Client reports receiving the 2nd dose of the Covid vaccine. - Social history:: Smoking status: Reported history of juuling and/or vaping. Patient/guardian denies using alcohol. ROS: 11:48 Constitutional: Negative for fever, chills, and weight loss, Cardiovascular: Negative jmm for chest pain, palpitations, and edema, Respiratory: Negative for shortness of breath, cough, wheezing, and pleuritic chest pain. 11:48 Abdomen/GI: Positive for abdominal pain, nausea. 11:48 All other systems are negative. Exam: 11:48 Constitutional: This is a well developed, well nourished patient who is awake, alert, jmm and in no acute distress. Head/Face: atraumatic. Eyes: EOMI, no conjunctival erythema appreciated ENT: Moist Mucus Membranes Neck: Trachea midline, Supple Chest/axilla: Normal chest wall appearance and motion. Cardiovascular: Regular rate and rhythm. No edema appreciated Respiratory: Normal respirations, no respiratory distress appreciated 11:48 Skin: General appearance color normal MS/ Extremity: Moves all extremities, no obvious deformities appreciated, no edema noted to the lower extremities Neuro: Awake and alert Psych: Behavior is normal, Mood is normal, Patient is cooperative and pleasant 11:48 Abdomen/GI: Inspection: abdomen appears normal, Bowel sounds: normal, Palpation: soft, moderate abdominal tenderness, in the right upper quadrant. 11:48 Back: CVA tenderness, that is moderate, is noted on the right. Vital Signs: 11:45 BP 149 / 100; Pulse 70; Resp 18; Temp 98.4(O); Pulse Ox 98% on R/A; Weight 72.57 kg; ld1 Height 4 ft. 11 in. (149.86 cm); Pain 8/10; 12:45 BP 135 / 69; Pulse 63; Resp 18; Pulse Ox 99% on R/A; em6 13:45 BP 116 / 77; Pulse 65; Resp 18; Pulse Ox 100% on R/A; em6 15:04 BP 94 / 61; Pulse 58; Resp 18; Pulse Ox 99% on R/A; em6 11:45 Body Mass Index 32.32 (72.57 kg, 149.86 cm) ld1 MDM: 11:47 Patient medically screened. [facility] 14:44 Data reviewed: vital signs, nurses notes. [facility] 14:56 Counseling: I had a detailed discussion with the patient and/or guardian regarding: the [facility] historical points, exam findings, and any diagnostic results supporting the discharge/admit diagnosis, lab results, radiology results, the need for outpatient follow up, to return to the emergency department if symptoms worsen or persist or if there are any questions or concerns that arise at home. 09/17 11:46 Order name: CBC with Diff; Complete Time: 12:58 [facility] 09/17 11:46 Order name: CMP; Complete Time: 13:11 [facility] 09/17 11:46 Order name: Lipase; Complete Time: 13:11 [facility] 09/17 11:46 Order name: CT Abd/Pelvis - IV Contrast Only; Complete Time: 13:57 [facility] 09/17 12:12 Order name: Urine Dipstick-Ancillary; Complete Time: 12:13 [facility] 09/17 12:20 Order name: Urine --Ancillary (enter results); Complete Time: 12:32 09/17 11:46 Order name: IV Saline Lock; Complete Time: 12:44 [facility] 09/17 11:46 Order name: Labs collected and sent; Complete Time: 12:44 [facility] 09/17 11:46 Order name: Urine Dipstick-Ancillary (obtain specimen); Complete Time: 12:11 [facility] 09/17 11:46 Order name: Urine Test (obtain specimen); Complete Time: 12:11 [facility] Administered Medications: 12:35 Drug: NS 0.9% 1000 ml Route: IV; Rate: 1 bolus; Site: left antecubital; em6 13:37 Follow up: Response: No adverse reaction; IV Status: Completed infusion; IV Intake: em6 1000ml 12:35 Drug: Pepcid (famotidine) 20 mg Route: IVP; Site: left antecubital; em6 13:20 Follow up: Response: No adverse reaction em6 12:35 Drug: Zofran (Ondansetron) 4 mg Route: IVP; Site: left antecubital; em6 13:20 Follow up: Response: No adverse reaction em6 12:35 Drug: morphine 4 mg Route: IVP; Infused Over: 4 mins; Site: left antecubital; em6 13:20 Follow up: Response: No adverse reaction; RASS: Alert and Calm (0) em6 13:36 Drug: Ketorolac 30 mg Route: IVP; Site: left antecubital; em6 14:20 Follow up: Response: No adverse reaction em6 Disposition: 16:16 Co-signature as Attending Physician, Denis Pond MD. rn Disposition Summary: 09/17/22 14:56 Discharge Ordered Location: Home [facility] Condition: Stable [facility] Diagnosis - Abdominal pain, unspecified [facility] Followup: [facility] - With: Aly Jimenez MD - When: 2 - 3 days - Reason: Recheck today's complaints, Continuance of care, Re-evaluation by your physician Discharge Instructions: - Discharge Summary Sheet [facility] - Abdominal Pain, Adult [facility] Forms: - Medication Reconciliation Form [facility] - Thank You Letter [facility] - Antibiotic Education [facility] - Prescription Opioid Use [facility] Prescriptions: - ondansetron 4 mg Oral tablet,disintegrating - take 1 tablet by ORAL route every 4-6 hours As needed; 30 tablet; Refills: 0, [facility] Product Selection Permitted - Carafate 1 gram Oral Tablet - take 1 tablet by ORAL route 4 times per day take on an empty stomach, beginning jmm on waking and last dose at bedtime; 100 tablet; Refills: 0, Product Selection Permitted - Pepcid 20 mg Oral Tablet - take 1 tablet by ORAL route every 12 hours for 10 days; 20 tablet; Refills: 0, jmm Product Selection Permitted - dicyclomine 20 mg Oral Tablet - take 1 tablet by ORAL route 4 times per day; 30 tablet; Refills: 0, Product jmm Selection Permitted Signatures: Dispatcher [employer] Abdulaziz Echeverria PA PA Denis Cruz MD MD rn Dibbern, Lauren, RN RN ld1 Esperanza Cao RN RN em6
--- NOTE | 2022-09-17 14:57 | ER ---
Nurse's Notes [facility] Name: Erika Romero Age: 36 yrs Sex: Female : 1985 Arrival Date: 09/17/2022 Time: 11:27 Bed 27 Private MD: Diagnosis: Abdominal pain, unspecified Presentation: 09/17 11:47 Chief complaint: Patient states: LUQ pain X 3 days - radiates to mid back. Coronavirus ld1 screen: At this time, the client does not indicate any symptoms associated with coronavirus-19. Ebola Screen: No symptoms or risks identified at this time. Initial Sepsis Screen: Does the patient meet any 2 criteria? No. Patient's initial sepsis screen is negative. Does the patient have a suspected source of infection? No. Patient's initial sepsis screen is negative. Risk Assessment: Do you want to hurt yourself or someone else? Patient reports no desire to harm self or others. Onset of symptoms was September 17, 2022. 11:47 Method Of Arrival: Ambulatory ld1 11:47 Acuity: CESILIA 3 ld1 Triage Assessment: 11:45 General: Appears in no apparent distress. uncomfortable, Behavior is calm, cooperative, ld1 appropriate for age. Pain: Complains of pain in epigastric area and right upper quadrant Pain radiates to mid back area Pain currently is 8 out of 10 on a pain scale. Quality of pain is described as sharp, shooting, throbbing. EENT: No signs and/or symptoms were reported regarding the EENT system. Neuro: Level of Consciousness is awake, alert, obeys commands, Oriented to person, place, time, situation. Cardiovascular: Capillary refill < 3 seconds Patient's skin is warm and dry. Respiratory: Airway is patent Respiratory effort is even, unlabored. GI: Abdomen is round non-distended, Reports upper abdominal pain, nausea, vomiting. : No signs and/or symptoms were reported regarding the genitourinary system. Derm: No signs and/or symptoms reported regarding the dermatologic system. Musculoskeletal: No signs and/or symptoms reported regarding the musculoskeletal system. 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 - Social history:: Smoking status: Reported history of juuling and/or vaping. Patient/guardian denies using alcohol. Screenin:35 Abuse screen: Denies threats or abuse. Nutritional screening: No deficits noted. em6 Tuberculosis screening: No symptoms or risk factors identified. Fall Risk IV access (20 points). Total Hansen Fall Scale indicates No Risk (0-24 pts). Assessment: 12:35 General: Appears uncomfortable, Behavior is cooperative, restless. Pain: Complains of em6 pain in epigastric area, posterior aspect of right lateral abdomen, anterior aspect of right lateral abdomen, posterior aspect of left lateral abdomen and anterior aspect of left lateral abdomen Pain currently is 10 out of 10 on a pain scale. Quality of pain is described as sharp, shooting, Pain began 2-3 days ago. Is continuous. Neuro: Level of Consciousness is awake, alert, obeys commands, Oriented to person, place, time, situation. Cardiovascular: Patient's skin is warm and dry. Respiratory: Airway is patent Respiratory effort is even, unlabored, Respiratory pattern is regular, symmetrical, Breath sounds are clear bilaterally. GI: Abdomen is non-distended, Abd is soft and non tender X 4 quads. Reports upper abdominal pain, intolerance of fluids, intolerance of food, nausea, vomiting. : No signs and/or symptoms were reported regarding the genitourinary system. EENT: No signs and/or symptoms were reported regarding the EENT system. Derm: No signs and/or symptoms reported regarding the dermatologic system. Musculoskeletal: Circulation, motion, and sensation intact. Range of motion: intact in all extremities. 13:30 Reassessment: Patient and/or family updated on plan of care and expected duration. Pain em6 level reassessed. Patient is alert, oriented x 3, equal unlabored respirations, skin warm/dry/pink. provider notified of pain. new order given Patient states symptoms have not improved. 14:30 Reassessment: Patient and/or family updated on plan of care and expected duration. Pain em6 level reassessed. Patient is alert, oriented x 3, equal unlabored respirations, skin warm/dry/pink. Patient states symptoms have improved. Vital Signs: 11:45 BP 149 / 100; Pulse 70; Resp 18; Temp 98.4(O); Pulse Ox 98% on R/A; Weight 72.57 kg; ld1 Height 4 ft. 11 in. (149.86 cm); Pain 8/10; 12:45 BP 135 / 69; Pulse 63; Resp 18; Pulse Ox 99% on R/A; em6 13:45 BP 116 / 77; Pulse 65; Resp 18; Pulse Ox 100% on R/A; em6 15:04 BP 94 / 61; Pulse 58; Resp 18; Pulse Ox 99% on R/A; em6 11:45 Body Mass Index 32.32 (72.57 kg, 149.86 cm) ld1 ED Course: 11:27 Patient arrived in ED. rg4 11:30 Abdulaziz Ayoub PA is PHCP. jmm 11:30 Denis Pond MD is Attending Physician. jmm 11:45 Arm band placed on right wrist. ld1 11:47 Triage completed. ld1 12:01 Esperanza Cao, RN is Primary Nurse. em6 12:35 Bed in low position. Call light in reach. Side rails up X2. Pulse ox on. NIBP on. Warm em6 blanket given. 12:35 Inserted saline lock: 20 gauge in left antecubital area, using aseptic technique. Blood em6 collected. 12:44 CBC with Diff Sent. em6 12:44 CMP Sent. em6 12:44 Lipase Sent. em6 13:47 CT Abd/Pelvis - IV Contrast Only In Process Unspecified. EDMS 14:56 Aly Jimenez MD is Referral Physician. jmm 15:05 No provider procedures requiring assistance completed. em6 15:16 IV discontinued, intact, bleeding controlled, No redness/swelling at site. Pressure em6 dressing applied. Administered Medications: 12:35 Drug: NS 0.9% 1000 ml Route: IV; Rate: 1 bolus; Site: left antecubital; em6 13:37 Follow up: Response: No adverse reaction; IV Status: Completed infusion; IV Intake: em6 1000ml 12:35 Drug: Pepcid (famotidine) 20 mg Route: IVP; Site: left antecubital; em6 13:20 Follow up: Response: No adverse reaction em6 12:35 Drug: Zofran (Ondansetron) 4 mg Route: IVP; Site: left antecubital; em6 13:20 Follow up: Response: No adverse reaction em6 12:35 Drug: morphine 4 mg Route: IVP; Infused Over: 4 mins; Site: left antecubital; em6 13:20 Follow up: Response: No adverse reaction; RASS: Alert and Calm (0) em6 13:36 Drug: Ketorolac 30 mg Route: IVP; Site: left antecubital; em6 14:20 Follow up: Response: No adverse reaction em6 Medication: 15:05 VIS not applicable for this client. em6 Intake: 13:37 IV: 1000ml; Total: 1000ml. em6 Outcome: 14:56 Discharge ordered by MD. jmm 15:16 Patient left the ED. em6 15:16 Discharged to home ambulatory. em6 15:16 Condition: stable 15:16 Discharge instructions given to patient, Instructed on discharge instructions, follow up and referral plans. medication usage, Demonstrated understanding of instructions, follow-up care, medications, Prescriptions given X 4. Signatures: Dispatcher [employer] EDMS Abdulaziz Ayoub PA PA jmm Garcia, Rubi rg4 Isabella Grant RN RN ld1 Esperanza Cao RN RN em6 Corrections: (The following items were deleted from the chart) 12:45 12:44 NS 0.9% 1000 ml IV at 1 bolus in left antecubital em6 em6 14:02 13:30 Reassessment: No changes from previously documented assessment. Patient and/or em6 family updated on plan of care and expected duration. Pain level reassessed. Patient is alert, oriented x 3, equal unlabored respirations, skin warm/dry/pink. em6
[2022-09-17 17:11] VITALS: TEMP 98.4
[2022-09-17 17:21] VITALS: BP 94/61; O2SAT 99
== END 2022-09-17 15:16 | disposition home or self-care (01) ==
LOC: ER 11:23
DX: R10.9 Unspecified abdominal pain (principal); R11.0 Nausea
CPT/HCPCS: 36415; 74177; 80053; 81003; 81025; 83690; 85025; 96361; 96374; 96375; 99284; J2405; J7030; Q9967